=== PATIENT | female | born 1945 | race Caucasian/White ===

== ENCOUNTER 2024-09-17 10:31 | Outpatient (CLI) | payer MEDICARE, MEDICAID, SELFPAY ==
--- NOTE | ~2024-09-17 | CT_ITS ---
CT of the Abdomen and Pelvis: Indication: Abdominal pain Technique: 2.5 mm axial scans were obtained through the abdomen and pelvis following intravenous adm inistration of 100 cc of Omnipaque 350. Dose reduction technique was used on this scan by utilizing a utomated exposure control and iterative reconstruction technique. The dose-length product (DLP) was 1 374.99 mGy-cm. Findings: Scans through the lung bases demonstrate probable left basilar atelectasis or scarring. The liver, spleen, pancreas, and gallbladder are within normal limits. 9 mm nonobstructing right yady l stone present. Probable vascular calcifications in the left kidney rather than stones. 2.1 cm adren al nodule is indeterminate. 2.3 cm right adrenal nodule contains macroscopic fat, compatible with mye lolipoma. There is an additional 9 mm right adrenal nodule, which is indeterminate. There are extensi ve atherosclerotic calcifications of the aorta and iliac vessels. Infrarenal aortic aneurysm measures 5.4 cm in maximum diameter. No lymphadenopathy. There is prominent stool at the rectum and distal sigmoid colon. No bowel obstruction evident. Images through the pelvis were performed. Urinary bladder unremarkable. Status post hysterectomy. Lef t ovary is prominent overall, measuring 4.3 cm in diameter, with a 2.4 cm cyst present. No other adne xal mass. No ascites. Moderate chronic compression fracture of T10 present. There is moderate to advanced degenerative spon dylosis of the lumbar spine. Impression: 5.4 cm infrarenal abdominal aortic aneurysm. Vascular surgery consultation advised. Prominent left ovary with 2.4 cm cyst. Gynecological evaluation advised. Pelvic ultrasound should be considered for further evaluation. 9 mm nonobstructing right renal stone. 2.1 cm indeterminate left adrenal nodule. Advise follow-up MR to attempt to confirm benign adenoma. A dditional right adrenal nodules, as above. Probable fecal impaction/constipation. Reviewed, dictated and finalized at location M. Impression: 5.4 cm infrarenal abdominal aortic aneurysm. Vascular surgery consultation advi sed. Prominent left ovary with 2.4 cm cyst. Gynecological evaluation advised. Pelvic ultrasound should be considered for further evaluation. 9 mm nonobstructing right renal stone. 2.1 cm indeterminate left adrenal nodule. Advise follow-up MR to attempt to con firm benign adenoma. Additional right adrenal nodules, as above. Probable fecal impaction/constipation.
--- OUTSIDE RECORDS SUMMARY | 2024-09-17 10:35 | XMS_ITS | Clinical Summary ---
Author Organization [facility] ilks Address [address] [place] [address] Care Team Providers Care [employer] Name Role Phone Rony Whitney MD Primary Care Provider [phone] Allergies No known active allergies Medications escitalopram (LEXAPRO) 20 mg tablet Take 2 tablets (40 mg total) by mouth nightly 12/24/19 23 Active metFORMIN XR (GLUCOPHAGE XR) 500 mg 24 hr tablet Take 1 tablet (500 mg total) by mouth 2 (two) times a day 12/24/19 23 Active traZODone (DESYREL) 100 mg tablet Take 1 tablet (100 mg total) by mouth nightly 12/24/19 23 Active ibandronate (BONIVA) 150 mg tablet Take 1 tablet (150 mg total) by mouth every 30 (thirty) days Take in AM with glass of water prior to food, don't lie down for 30 minutes. Active aspirin 81 mg enteric coated tablet Take 1 tablet (81 mg total) by mouth daily Active magnesium oxide (MAG-OX) 400 mg (241.3 mg elemental magnesium) tabletIndicati ons:hypomagnes emia Take 1 tablet (400 mg total) by mouth 2 (two) times a day 20 tablet 02/04/20 23 Active potassium chloride ER 20 mEq CR tablet Take 1 tablet (20 mEq total) by mouth daily 02/24/20 23 Active acetaminophen (TYLENOL) 325 mg tablet Take 2 tablets (650 mg total) by mouth every 4 (four) hours as needed for pain Active ticagrelor (BRILINTA) 90 mg tablet Take 1 tablet (90 mg total) by mouth 2 (two) times a day 180 tablet 3 07/05/19 24 Active guaiFENesin (ROBITUSSIN) 400 mg tablet Take 1 tablet (400 mg total) by mouth Active loperamide (IMODIUM A-D) 2 mg tablet Take 1 tablet (2 mg total) by mouth 4 (four) times a day as needed for diarrhea Active LORazepam (ATIVAN) 0.5 mg tablet Take 1 tablet (0.5 mg total) by mouth every 6 (six) hours as needed for anxiety Active UNABLE TO FIND Cranberry oral 450 mg Active docusate sodium (COLACE) 100 mg capsuleIndicat ions:constipat ion Take 1 capsule (100 mg total) by mouth 2 (two) times a day Activ e sodium phosphates (FLEET) 19-7 gram/118 mL enema Insert 1 enema (118 mL total) into the rectum Active ipratropium-al buteroL (DUO-NEB) 0.5-2.5 mg/3 mL nebulizer solution Take by nebulization every 6 (six) hours Active magnesium hydroxide (MILK OF MAGNESIA) suspension 400 mg/5 mL Active polyethylene glycol (MIRALAX) 17 gram/dose bulk powder Take 17 g by mouth daily Active ondansetron (ZOFRAN) 4 mg tablet Take 1 tablet (4 mg total) by mouth every 8 (eight) hours as needed for nausea or vomiting Active UNABLE TO FIND - ENTER DRUG NAME IN NOTES TO PHARMACY Probiotic 1 unit A ctive UNABLE TO FIND Senokot 1 tablet Active metoprolol XL (TOPROL-XL) 25 mg extended release tablet Take 1 tablet (25 mg total) by mouth nightly 07/01/19 25 026 Active losartan (COZAAR) 25 mg tablet Take 1 tablet (25 mg total) by mouth daily 07/01/19 25 Active rosuvastatin (CRESTOR) 40 mg tablet Take 1 tablet (40 mg total) by mouth nightly at bedtime. 07/01/19 25 Active cranberry fruit 400 mg tablet Take by mouth Active fluconazole (DIFLUCAN) 150 mg tablet TAKE 1 TABLET BY MOUTH FOR ONE TIME DOSE (ER BOX FROM 04/10/24) 04/13/19 25 Active lidocaine (XYLOCAINE) 10 mg/mL (1 %) injection DILUTE CEFTRIAXONE W/4.2ML OF LIDOCAINE IN THE MORNING FOR 8 DOSES 07/01/19 Active mirtazapine (REMERON) 7.5 mg tablet TAKE 1 TABLET BY MOUTH AT BEDTIME FOR DEPRESSION 05/06/19 Active doxycycline hyclate 100 mg capsule GIVE 1 TABLET BY MOUTH TWO TIMES A DAY FOR INFECTION FOR 10 DAYS 05/01/19 Active cefTRIAXone (ROCEPHIN) 2 gram injection INJECT 2GM INTRAMUSCULARLY IN THE MORNING FOR 8 DOSES (DILUTE W/4.2ML OF LIDOCAINE) 07/01/19 Active Active Problems Problem Noted Date Diagnosed Date Snoring 07/19/2024 Assessment & Plan (07/19/2024 10:19 AM CDT): The patient presents with snoring and daytime hypersomnia. Per her request, I have ordered a home sleep test and she will follow up here in 4 months. Mixed hyperlipidemia 07/05/2023 Moderate aortic regurgitation 07/05/2023 CAD (coronary artery disease), [place] coronary a rtery 06/05/2023 Type 2 diabetes mellitus wit h diabetic peripheral angiopathy without gangrene, without long-term current use of insulin 05/16/2023 Assessment & Plan (05/16/2023 10:37 AM TOP PRECIPITATOR OPERATOR HELPER): Impression: Chronic with good glucose control. Plan: Continue glipizide and metformin. Primary hypertension 05/16/2023 Assessment & Plan (05/16/2023 10:38 AM TOP PRECIPITATOR OPERATOR HELPER): Impression: Chronic and stable. Plan: Continue metoprolol Hx of AKA (above knee amputation), right 023 Assessment & Plan (05/16/2023 10:37 AM TOP PRECIPITATOR OPERATOR HELPER): Impression: Right [id number] amputation site is healed. Plan: Continue recommendations as per Nick for prosthesis. -patient to follow-up in 3 months for re-evaluation. Assessment & Plan (03/18/2023 9:04 AM TOP PRECIPITATOR OPERATOR HELPER): Impression: Patient is status post right kifep-klz-btgp amputation. Surgical dehiscence occurred during patient's last office visit when janette were removed. Dehiscence sites are nearly healed. Patient continues to have edema to the residual right lower extremity. Per patient's daughter, facility where the patient resides in has not been utilizing compression therapy. The patient has an adequate residual limb that would be appropriate for a level K3 prosthesis. They're currently undergoing prosthesis evaluation and fitting for a right jawic-pfs-laud prothesis. Patient has no complaints or concerns at this time. I have examined the patient and recommend a right qvnnm-axj-ejqp prosthetic. The patient was a level K3 ambulator prior to his amputation. 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 Patient is very motivated to return to normal functioning once prosthesis is obtained and is capable walking on uneven surfaces and able to traverse multiple level barriers including stairs, curbs and hills. The patient currently has adequate upper extremity limb strength and ability to transfer from there chair to a bed, couch or toilet. The patient does not have any other comorbidities that would hinder their ability to return to full function within a reasonable amount of time. Plan: Recommend triple antibiotic ointment and Band-Aid to nearly healed ulceration sites. -continue working with Vocal Performer for prosthetic evaluation. -recommend compression therapy to right udbue-ctg-lfwt amputation site for edema control. -patient to follow-up in 3 months for re-evaluation. Assessment & Plan (02/11/2023 11:06 AM TOP PRECIPITATOR OPERATOR HELPER): Impression: Patient is status post right obwga-pcs-czyb amputation. Postsurgical edema is noted to residual right lower extremity. Surgical incision is well approximated, healing with janette intact. No concern for infection. Plan: [place] removed. Medical assistance brought it to my attention of continued bleeding the center of amputation site when janette were removed. Hematoma was expressed from open surgical wound. Patient was seen and evaluated with Dr. Mcqueen. Applied steri strips to the incision of the amputation. - Recommend daily dressing change with island dressing. - Recommend if bleeding continues, apply pressure dressing to open site for hemostasis. -recommend Tubigrip to the right amputation site to assist with edema. - patient to follow-up in 1 week for re-evaluation. BJORN (acute kidney injury) 01/28/2023 Elevated LFTs 01/27/2023 Gangrene 01/26/2023 Shock 01/26/2023 Acute respiratory failure with hypoxia COPD exacerbation 01/21/2023 Peripheral vascular disease 01/21/2023 Assessment & Plan (05/16/2023 10:36 AM TOP PRECIPITATOR OPERATOR HELPER): Impression: Patient denies any symptoms of claudication, ischemic rest pain to her left lower extremity. Patient does have a superficial ulceration to the lateral aspect of dorsal left foot with no concern for infection. Plan: Continue daily dressing changes with triple antibiotic ointment and Band- Aid to superficial ulceration. -patient to follow-up in 3 months for re-evaluation with repeat lower extremity arterial Doppler. Sepsis 01/21/2023 Cardiac arrest 01/07/2023 Acute coronary syndrome 01/07/2023 Assessment & Plan (07/05/2023 2:58 AM CDT): Vfib arrest in setting of septic shock and distal RCA Acute coronary syndrome/Stemi Penetrating wound of right foot 01/07/2023 Encounters Date Type Department Care Team Description 09/16/2024 Telephone [facility] [address], [place] [id number] [place] Nena Forman [facility] 09/16/2024 Orders Only [facility] Medical [facility] Pulmonary [address] [phone] Flo Carrasco MD ANITA (obstructive sleep apnea) (Primary Dx) 09/15/2024 12:52 PM CDT - 09/15/2024 11:59 PM CDT Hospital Encounter [facility] [address], [place] [id number] Snoring; Hypersomnia, unspecified Discharge Disposition: Discharge to home or self care 07/19/2024 10:30 AM CDT Office Visit [facility] Pulmonary [address] [phone] Flo Carrasco MD Snoring (Primary Dx); ANITA (obstructive sleep apnea); Hypersomnia, unspecified 07/01/2024 Results Follow-Up [facility] Cardiology [address] [place] [phone] Carola Gómez MA Lipid panel, Thyroid Function [place], Pro B-type natriuretic peptide, Additional followed-up results: 6 06/30/2024 10:50 AM CDT Lab [facility] [address] [place] [id number] Coronary artery disease of [place] artery of [place] heart with stable angina pectoris; Primary hypertension; Type 2 diabetes mellitus with diabetic peripheral angiopathy without gangrene, without long-term current use of insulin (HCC); BJORN (acute kidney injury); Hx of AKA (above knee amputation), right (HCC) 06/30/2024 9:45 AM CDT Office Visit [facility] Cardiology [address] [place] [phone] Jitendra Corral MD Coronary artery disease of [place] artery of [place] heart with stable angina pectoris (Primary Dx); Primary hypertension; Type 2 diabetes mellitus with diabetic peripheral angiopathy without gangrene, without long-term current use of insulin (HCC); BJORN (acute kidney injury); Hx of AKA (above knee amputation), right (HCC) 06/30/2024 Orders Only [facility] Cardiology [address] [place] [phone] Jitendra Corral MD Type 2 diabetes mellitus with diabetic peripheral angiopathy without gangrene, without long-term current use of insulin (HCC) (Primary Dx) 06/30/2024 Telephone [facility] Cardiology [address] [place] [phone] Jitendra Corral MD from Last 3 Months Surgical History Surgery Date Site/Laterality Comments CARDIAC CATHETERIZATION APPENDECTOMY HYSTERECTOMY PERCUTANEOUS TRANSLUMINAL CORONARY ANGIOPLASTY lad Medical History Medical History Date Comments Diabetes mellitus (HCC) Coronary artery disease PAD (peripheral artery disease) CKD (chronic kidney disease) Family History Medical History Relation Name Comments Heart disease Brother Relation Name Status Comments Brother Father Mother Social History Tobacco Use Types Packs/Day Years Used Date Smoking Tobacco: Former Cigarettes 3 40 Smokeless Tobacco: Never Tobacco Cessation:Counseling Given: Not Answered [facility] Utilities Answer Date Recorded In the past 12 months has th e electric, gas, oil, or water company threatened to shut off services in your home? No 01/08/2023 Social Connection and Isolation Panel [NHANES] A nswer Date Recorded Frequency of Communication with Friends and Fami ly Not on file 01/08/2023 Frequency of Social Gatherings with Friends and Family Not on file 01/08/2023 Attends Bahai Services Not on file 01/08 Active Member of Clubs or Organizations Not on f ile 01/08/2023 Attends Club or Organization Meetings Not on sundar e 01/08/2023 Are you , , di vorced, , never , or living with a partner? 01/08/2023 AUDIT-C Answer Date Recorded Q1: How often do you have a drink containing alcohol? Never 06/05/2023 Q2: How many drinks containi ng alcohol do you have on a typical day when you are drinking? Patient does not drink Q3: How often do you have si x or more drinks on one occasion? Never 06/05/2023 Overall Financial Resource Strain (CARDIA) Answe r Date Recorded How hard is it for you to pa y for the very basics like food, housing, medical care, and heating? Not hard at all 01/08/2023 Hunger Vital Sign Answer Date Recorded Within the past 12 months, y ou worried that your food would run out before you got the money to buy more. Never true 01/09/20 23 Within the past 12 months, t he food you bought just didn't last and you didn't have money to get more. Never true 01/08/2023 PRAPARE - Transportation Answer Date Re corded In the past 12 months, has l ack of transportation kept you from medical appointments or from getting medications? No 03/2022 In the past 12 months, has l ack of transportation kept you from meetings, work, or from getting things needed for daily living? No 01/08/2023 Housing Stability Vital Sign Answer Zachary e Recorded In the last 12 months, was t here a time when you were not able to pay the mortgage or rent on time? No 01/08/2023 In the last 12 months, how many places have you lived? 1 01/08/2023 In the last 12 months, was t here a time when you did not have a steady place to sleep or slept in a halfway (including now)? No 01/08/2023 Personal Safety Answer Date Recorded Have you ever been in or are you currently in a harmful physical or emotional relationship or is someone making you feel afraid or unsafe? Denies 06/05/2023 Comments No Sex and Gender Information Value Date Recorded Sex Assigned at Not on file Legal Sex Female 5:39 PM TOP PRECIPITATOR OPERATOR HELPER Gender Identity Female 01/16/2023 6:07 AM TOP PRECIPITATOR OPERATOR HELPER Sexual Orientation Not on file Obstetrics History Last Filed Vital Signs Vital Sign Reading Time Taken Comments Blood Pressure 118/76 07/19/2024 9:49 AM CDT Pulse 85 07/19/2024 9:49 AM CDT Temperature 37.1 C (98.7 F) 07/19/2024 9:49 AM CDT Respiratory Rate 18 07/19/2024 9:49 AM CDT Oxygen Saturation 98% 07/19/2024 9:49 AM CDT Inhaled Oxygen Concentration - - Weight 106.6 kg (235 lb) 06/30/2024 10:05 AM CDT Height 177.8 cm (5' 10) 07/19/2024 9:49 AM CDT Body Mass Index 33.72 06/20/2023 12:53 PM CDT Plan of Treatment Health Maintenance Due Date Last Done Comments Albumin Creatinine Ratio, Urine 1947 Depression Screening 1945 Osteoporosis Screening-Bone Density Scan 1945 Dilated Eye Exam 1947 Foot Exam 1947 DTaP/Tdap/Td Vaccine (1 - Tdap) 1958 Hepatitis B Screening 1965 Pneumococcal vaccine 65+ (1 of 2 - PCV) 1966 Zoster Vaccine (1 of 2) 1997 Well Visit 65+ 2012 Fall Risk Assessment 06/05/2024 06/06/2023 Influenza Vaccine (#1) 2024 12/29/2023 Hemoglobin A1C 12/30/2024 06/30/2024, 01/26/2023 Lipid Panel 06/30/2025 06/30/2024, 03/0 07/2024, 06/02/2023, Additional history exists eGFR 06/30/2025 06/30/2024, 03/2 11/2023, 06/05/2023, Additional history exists Hepatitis C Screening Completed 01/13/2023 Medical Devices Implanted Type Area Development Vice President Device Identifier Shelf Expiration Date Model / Serial / Lot Medtronic Card Vasc Surgery 2.50 X 22mm [place] [employer] Coronary Stent [id number] - [id number] Implanted:Qty: 1 on 01/07/2023 by Jitendra Corral MD at [facility] Med[employer]onic Card Vasc Surgery 08/15/2025 [id number] / / [id number] Medtronic [facility] Vasc Surgery 2.75 X 18mm [employer] Rx Coronary Stent [id number] - [id number] Implanted:Qty: 1 on 06/05/2023 by Jitendra Corral MD at [facility] Med[employer]onic Card Vasc Surgery 12/31/2025 [id number] / / [id number] Medtronic [facility] Vasc Surgery 3.5 X 15mm Amrik [employer] Rx Coronary Stent [id number] - [id number] Implanted:Qty: 1 on 06/05/2023 by Jitendra Corral MD at [facility] [employer] [facility] Vasc Surgery 04/30/2025 [id number] / / [id number] Procedures Procedure Name Priority Date/Time Associated Diagnosis Comments PORTABLE/HOME SLEEP STUDY Routine 09/15/2024 12:52 PM CDT Snoring Hypersomnia, unspecified HEMOGLOBIN A1C Routine 06/30/2024 11:03 AM CDT Coronary artery disease of [place] artery of [place] heart with stable angina pectoris Primary hypertension Type 2 diabetes mellitus with diabetic peripheral angiopathy without gangrene, without long-term current use of insulin (HCC) BJORN (acute kidney injury) Hx of AKA (above knee amputation), right (HCC) EGFR Routine 06/30/2024 11:03 AM CDT Coronary artery disease of [place] artery of [place] heart with stable angina pectoris Primary hypertension Type 2 diabetes mellitus with diabetic peripheral angiopathy without gangrene, without long-term current use of insulin (HCC) BJORN (acute kidney injury) Hx of AKA (above knee amputation), right (HCC) DIFFERENTIAL AUTO Routine 06/30/2024 11: 03 AM CDT Coronary artery disease of [place] artery of [place] heart with stable angina pectoris Primary hypertension Type 2 diabetes mellitus with diabetic peripheral angiopathy without gangrene, without long-term current use of insulin (HCC) BJORN (acute kidney injury) Hx of AKA (above knee amputation), right (HCC) COMPREHENSIVE METABOLIC PANEL Routine 06/30/2024 11:03 AM CDT Coronary artery disease of [place] artery of [place] heart with stable angina pectoris Primary hypertension Type 2 diabetes mellitus with diabetic peripheral angiopathy without gangrene, without long-term current use of insulin (HCC) BJORN (acute kidney injury) Hx of AKA (above knee amputation), right (HCC) CBC WITH AUTO DIFFERENTIAL Routine 06/30/2024 11:03 AM CDT Coronary artery disease of [place] artery of [place] heart with stable angina pectoris Primary hypertension Type 2 diabetes mellitus with diabetic peripheral angiopathy without gangrene, without long-term current use of insulin (HCC) BJORN (acute kidney injury) Hx of AKA (above knee amputation), right (HCC) MAGNESIUM Routine 06/30/2024 11:03 AM CDT Coronary artery disease of [place] artery of [place] heart with stable angina pectoris Primary hypertension Type 2 diabetes mellitus with diabetic peripheral angiopathy without gangrene, without long-term current use of insulin (HCC) BJORN (acute kidney injury) Hx of AKA (above knee amputation), right (HCC) PRO B-TYPE NATRIURETIC PEPTIDE Routine 06/30/2024 11:03 AM CDT Coronary artery disease of [place] artery of [place] heart with stable angina pectoris Primary hypertension Type 2 diabetes mellitus with diabetic peripheral angiopathy without gangrene, without long-term current use of insulin (HCC) BJORN (acute kidney injury) Hx of AKA (above knee amputation), right (HCC) THYROID FUNCTION CASCADE Routine 06/30/2024 11:03 AM CDT Coronary artery disease of [place] artery of [place] heart with stable angina pectoris Primary hypertension Type 2 diabetes mellitus with diabetic peripheral angiopathy without gangrene, without long-term current use of insulin (HCC) BJORN (acute kidney injury) Hx of AKA (above knee amputation), right (HCC) LIPID PANEL Routine 06/30/2024 11:03 AM CDT Coronary artery disease of [place] artery of [place] heart with stable angina pectoris Primary hypertension Type 2 diabetes mellitus with diabetic peripheral angiopathy without gangrene, without long-term current use of insulin (HCC) BJORN (acute kidney injury) Hx of AKA (above knee amputation), right (HCC) ECG 12-LEAD Routine 06/30/2024 10:08 AM CDT Coronary artery disease of [place] artery of [place] heart with stable angina pectoris HEPATITIS PANEL, ACUTE Routine 4:28 PM TOP PRECIPITATOR OPERATOR HELPER from Last 3 Months or Most Recently Relevant to Health Maintenance Results * Portable/Home Sleep Study (09/15/2024 12:52 PM CDT) us Flo Carrasco MD SLEEP CENTER ORDERABLES F inal Result [facility]EP [facility] [address] [place] [id number] * eGFR (06/30/2024 11:03 AM CDT) eGFR 76 >=60 mL/min/1. 73 m2 Comment: Interpretive Data Reference Interval Normal >/= 90 mL/min/1.73m2 Mildly decreased* 60 - 89 mL/min/1.73m2 Mildly to moderately decreased 45 - 59 mL/min/1.73m2 Moderately to severely decreased 30 - 44 mL/min/1.73m2 Severely decreased 15 - 29 mL/min/1.73m2 Kidney Failure < 15 mL/min/1.73m2 *Relative to young adult level Estimated glomerular filtration rate is determined by the 2020 CKD-EPI equation recommended by the National Kidney Foundation (A Unifying Approach to GFR Estimation: Recommendations of the NKF-ASK Task Force on Reassessing the Inclusion of Race in Diagnosing Kidney Disease, JASN 202). The CKD-EPI equation should not be used for patients with unstable renal function and has not been validated in children and those over 70. Current interpretive data was last reviewed 2021. Testing performed by: [address] [address] Blood 06/30/2024 11:0 3 AM CDT 06/30/2024 11:08 AM CDT us Jitendra Corral MD LAB BLOOD ORDERABL ES Final Result [place] [address] [facility] Department [place] [address] * Differential, auto (06/30/2024 11:03 AM CDT) Neutrophil abs 4.84 1.50 - 6.50 K/cumm Comment:Testing performed by : [address] [address] Imm gran abs 0.01 0.00 - 0.10 K/cumm DAMIAN Comment:Testing performed by : [address] [address] Lymphocyte abs 1.69 0.80 - 3.30 K/cumm DAMIAN Comment:Testing performed by : [address] [address] Monocyte abs 0.64 0.20 - 0.80 K/cumm DAMIAN Comment:Testing performed by : [address] [address] Eosinophil abs 0.24 0.00 - 0.50 K/cumm DAMIAN Comment:Testing performed by : [address] [place]., [address] Basophil abs 0.10 0.00 - 0.10 K/cumm DAMIAN Comment:Testing performed by : [address] [address] Neutrophil pct 64.4 % [facility] Comment: Interpretive Data Percent cell count reference ranges are not reported, since discordance with absolute values may lead to misinterpretation of CBC data. Current Interpretive Data was last revised on 2017. Testing performed by: [address] [address] Imm gran pct 0.1 % [facility] Comment: Interpretive Data Percent cell count reference ranges are not reported, since discordance with absolute values may lead to misinterpretation of CBC data. Current Interpretive Data was last revised on 2017. Testing performed by: [address] [address] Lymphocyte pct 22.5 % [facility] Comment: Interpretive Data Percent cell count reference ranges are not reported, since discordance with absolute values may lead to misinterpretation of CBC data. Current Interpretive Data was last revised on 2017. Testing performed by: [address] [address] Monocyte pct 8.5 % [facility] Comment: Interpretive Data Percent cell count reference ranges are not reported, since discordance with absolute values may lead to misinterpretation of CBC data. Current Interpretive Data was last revised on 2017. Testing performed by: [address] [address] Eosinophil pct 3.2 % [facility] Comment: Interpretive Data Percent cell count reference ranges are not reported, since discordance with absolute values may lead to misinterpretation of CBC data. Current Interpretive Data was last revised on 2017. Testing performed by: [address] [address] Basophil pct 1.3 % [facility] Comment: Interpretive Data Percent cell count reference ranges are not reported, since discordance with absolute values may lead to misinterpretation of CBC data. Current Interpretive Data was last revised on 2017. Testing performed by: [address] [address] Blood 06/30/2024 11:0 3 AM CDT 06/30/2024 11:09 AM CDT us Jitendra Corral MD LAB BLOOD ORDERABL ES Final Result [place] [address] [facility] Department [place] [address] * Pro B-type natriuretic peptide (06/30/2024 11:03 AM CDT) NT-proBNP 130 <=450 pg/mL Comment: Interpretive Comments: A. Dyspnea in Acute Care Setting All Ages: < 300 pg/ml, acute heart failure unlikely. < 50 yrs: 300 - 450 pg/ml, further investigation warranted. > 450 pg/ml, acute heart failure likely. 50 - 74 yrs: 300 - 900 pg/ml, further investigation warranted. > 900 pg/ml, acute heart failure likely . > or = 75 yrs: 450 - 1800 pg/ml, further investigation warranted. > 1800 pg/ml, acute heart failure likely. B. Non-acute Setting < 75 yrs < 125 pg/ml, rules out heart failure. > or = 125 pg/ml, further investigation warranted. > or = 75 yrs < 450 pg/ml, rules out heart failure. > or = 450 pg/ml, further investigation warranted. - Knowledge of each individual patient's NT-proBNP range may be more useful than using similar cut-points for every patient. Please note that marked elevations in NT-proBNP levels may be observed in state other than Left Ventricular Congestive Failure, including: acute coronary syndromes, right heart strain/failure (including pulmonary embolism and cor pulmonale), critical illness, renal failure, as well as advanced age. - References: 1. Henrietta GAMING et.al. Eur Heart J. 2006:27:330-337. 2. Dg SEQUEIRA, Tiffany GARVIN. J. AM Lino Cardiol: Cardiovasc Imag. 2009;2: 216- 225. Interpretive Data Last Revised Date: 2017. Testing performed by: [facility], [address] [place] [address]., [id number] Blood 06/30/2024 11:0 3 AM CDT 06/30/2024 11:08 AM CDT us Jitendra Corral MD LAB BLOOD ORDERABL ES Final Result Performing Organization Address [facility] de Phone Number [address] [address] * Thyroid Function [place] (06/30/2024 11:03 AM CDT) TSH 1.03 0.30 - 4.20 mcIUnit/mL Comment:Testing performed by : [address] [address] Blood 06/30/2024 11:0 3 AM CDT 06/30/2024 11:08 AM CDT us Jitendra Corral MD LAB BLOOD ORDERABL ES Final Result Performing Organization Address [facility] de Phone Number [address] [address] * (ABNORMAL) CBC with auto differential (06/30/2024 11:03 AM CDT) Pathologist [facility] [place] WBC 7.52 3.80 - 9.90 K/cumm Comment:Testing performed by : [address] [address] Hgb 12.5 11.9 - 15.5 g/dL DAMIAN MCKEON Comment:Testing performed by : [address] [address] Hct 41.9 35.6 - 45.5 % DAMIAN MCKEON Comment:Testing performed by : [address] [address] Plt 279 150 - 400 K/cumm DAMIAN MCKEON Comment:Testing performed by : [address] [address] MPV 10.3 9.1 - 12.3 fL DAMIAN MCKEON Comment:Testing performed by : [address] [address] RBC 4.62 3.90 - 5.20 M/cumm DAMIAN Comment:Testing performed by : [address] [address] MCV 90.7 81.3 - 96.4 fL DAMIAN Comment:Testing performed by : [address] [address] MCH 27.1 27.1 - 33.3 pg DAMIAN Comment:Testing performed by : [address] [address] MCHC 29.8(L) 32.3 - 35.7 g/dL DAMIAN Comment:Testing performed by : [address], [address] RDW CV 15.3(H) 11.1 - 14.9 % DAMIAN Comment:Testing performed by : [address], [address] RDW SD 50.4(H) 35.7 - 48.1 fL DAMIAN Comment:Testing performed by : [address] [address] NRBC abs 0.00 0.00 - 0.01 K/cumm DAMIAN Comment:Testing performed by : [address] [address] Blood 06/30/2024 11:0 3 AM CDT 06/30/2024 11:09 AM CDT Jitendra Corral MD LAB BLOOD ORDERABL ES Final Result [facility] [address] [facility] Department [place] [address] * Magnesium (06/30/2024 11:03 AM CDT) Magnesium 2.1 1.4 - 2.5 mg/dL Comment:Testing performed by : [address], [address] Blood 06/30/2024 11:0 3 AM CDT 06/30/2024 11:08 AM CDT Jitendra Corral MD LAB BLOOD ORDERABL ES Final Result Performing Organization Address [facility] Co de Phone Number DAMIAN [address] [address] * (ABNORMAL) Hemoglobin A1c (06/30/2024 11:03 AM CDT) Hgb A1C 8.5(H) 4.0 - 5.6 % Comment:Testing performed by : [address] [address] Estimated Average Glucose 197 mg/dL DAMIAN Comment: The ADA recommends reporting an estimated Average Glucose (eAG) with all Hemoglobin A1c results using the equation derived from a study of 507 normal and diabetic adults. Minority populations were underrepresented and children were not included. (Diabetes Care 31:6945-7330, 2008). The eAG is not equivalent to a fasting glucose. Testing performed by: [facility], [address] [place] [address]., [address] Blood 06/30/2024 11:0 3 AM CDT 06/30/2024 11:09 AM CDT Jitendra Corral MD LAB BLOOD ORDERABL ES Final Result Performing Organization Address [facility] de Phone Number [address] [address] * (ABNORMAL) Lipid panel (06/30/2024 11:03 AM CDT) Cholesterol 147 30 - 199 mg/dL Comment: Interpretive Data Ages < or = 19 years Acceptable: <170 mg/dL Borderline high: 170-199 mg/dL High: >or= 200 mg/dL Ages > or = 20 years Desirable: <200 mg/dL Borderline high: 200-239 mg/dL High: >or= 240 mg/dL Literature References: 1. Expert Panel on Integrated Guidelines for Cardiovascular Health and Risk Reduction in Children and Adolescents. Pediatrics 2011;128:S213 2. NCEP Expert Panel. Circulation 2004;110:227 Current Interpretive Data was last revised on 2017. Testing performed by: [address] [address] Triglycerides 152(H) <=149 mg/dL DAMIAN Comment: Interpretive Data Ages < or = 9 years Acceptable: <75 mg/dL Borderline high: 75-99 mg/dL High: >or= 100 mg/dL Ages 10 to 20 years Acceptable: <90 mg/dL Borderline high: 90-129 mg/dL High: >or= 130 mg/dL Ages > or = 20 years Desirable: <150 mg/dL Borderline high: 150-199 mg/dL High: 200-499 mg/dL Very high: >or= 499 mg/dL Literature References: 1. Expert Panel on Integrated Guidelines for Cardiovascular Health and Risk Reduction in Children and Adolescents. Pediatrics 2011;128:S213 2. NCEP Expert Panel. Circulation 2004;110:227 Current Interpretive Data was last revised on 2017. Testing performed by: [address] [address] HDL 50 >=40 mg/dL DAMIAN Comment: Interpretive Data Ages < or = 19 years Acceptable: >45 mg/dL Borderline low: 40-45 mg/dL Low: <40 mg/dL Ages > or = 20 years Desirable: >or= 60 mg/dL Low: <40 mg/dL Literature References: 1. Expert Panel on Integrated Guidelines for Cardiovascular Health and Risk Reduction in Children and Adolescents. Pediatrics 2011;128:S213 2. NCEP Expert Panel. Circulation 2004;110:227 Current Interpretive Data was last revised on 2017. Testing performed by: [address] [address] LDL, calculated 71 <=129 mg/dL DAMIAN Comment: Interpretive Data Ages < or = 19 years Acceptable: <110 mg/dL Borderline high: 110-129 mg/dL High: >or= 130 mg/dL Ages > or = 20 years Optimal: <100 mg/dL Near optimal: 100-129 mg/dL Borderline high: 130-159 mg/dL High: >160 mg/dL Calculated using the Morton LDL-C estimating equation. This equation was implemented on 2023. Prior to this date LDL-C was estimated using the Friedewald equation. Literature References: 1. Expert Panel on Integrated Guidelines for Cardiovascular Health and Risk Reduction in Children and Adolescents. Pediatrics 2011;128:S213 2. NCEP Expert Panel. Circulation 2004;110:227 3. Praveen Eng et al. [place] Cardiol. 2020 July 08;5(5):540-548. doi: 10.1001/jamacardio.2020.0013 Current Interpretive Data was last revised on 2023. Testing performed by: [address] [address] Non-HDL Cholesterol 97 mg/dL DAMIAN Comment: Interpretive Data Ages < or = 19 years Acceptable: <120 mg/dL Borderline high: 120-144 mg/dL High: >145 mg/dL Ages > or = 20 years When triglycerides are >200 mg/dL, Non-HDL cholesterol is a secondary target of therapy with treatment goals that are 30 mg/dL greater than the LDL cholesterol target. Literature References: 1. Expert Panel on Integrated Guidelines for Cardiovascular Health and Risk Reduction in Children and Adolescents. Pediatrics 2011;128:S213 2. NCEP Expert Panel. Circulation 2004;110:227 Current Interpretive Data was last revised on 2017. Testing performed by: [address] [address] Chol/HDL ratio 3 DAMIAN Comment:Testing performed by : [address] [address] Blood 06/30/2024 11:0 3 AM CDT 06/30/2024 11:08 AM CDT Narrative DAMIAN - 06/30/2024 11:44 AM CDT Has the patient been fasting for 8 hours or more?->No Has the patient fasted?->No us Jitendra Corral MD LAB BLOOD ORDERABL ES Final Result DAMIAN [address] [facility] Department [place] [address] * (ABNORMAL) Comprehensive metabolic panel (06/30/2024 11:03 AM CDT) Sodium 139 135 - 145 mmol/L Comment:Testing performed by : [address] [address] Potassium, pl 4.5 3.3 - 4.9 mmol/L DAMIAN Comment:Testing performed by : [address], [place]., [address] Chloride 101 97 - 110 mmol/L DAMIAN Comment:Testing performed by : [address], [place]., [address] CO2 26 22 - 32 mmol/L DAMIAN Comment:Testing performed by : [address], [place]., [address] Anion gap 12 2 - 15 mmol/L DAMIAN Comment:Testing performed by : [address], [place]., [address] BUN 18 6 - 25 mg/dL DAMIAN Comment:Testing performed by : [address], [place]., [address] Creatinine 0.80 0.60 - 1.10 mg/dL DAMIAN Comment:Testing performed by : [address], [place]., [address] Glucose 206(H) 70 - 199 mg/dL DAMIAN Comment: Interpretive Data Fasting glucose >/= 126 mg/dl is diagnostic for diabetes. Fasting is defined as no caloric intake for at least 8 hours. Fasting glucose between 100 mg/dl to 125 mg/dl is diagnostic of prediabetes. In a patient with classic symptoms of hyperglycemia or hyperglycemic crisis, a random glucose >/= 200 mg/dl is diagnostic for diabetes. In the absence of unequivocal hyperglycemia, results should be confirmed by repeat testing. The classification and Diagnosis of Diabetes Diabetes Care 202; 46: S19-S40. Current interpretive data was last revised 2022. Testing performed by: [address], [place]., [address] Calcium 9.3 8.5 - 10.3 mg/dL DAMIAN Comment:Testing performed by : [address], [place]., [address] Bilirubin, total 0.2 0.1 - 1.2 mg/dL DAMIAN Comment:Testing performed by : [address] [address] Protein, pl 7.9 6.5 - 8.5 g/dL DAMIAN Comment:Testing performed by : [address] [address] Albumin 4.0 3.5 - 5.0 g/dL DAMIAN Comment:Testing performed by : [address] [address] Alk phos 105 40 - 130 Units/L DAMIAN Comment:Testing performed by : [address], [place]., [address] ALT 15 7 - 45 Units/L DAMIAN Comment:Testing performed by : [address] [address] AST 16 10 - 45 Units/L DAMIAN Comment:Testing performed by : [address] [address] Blood 06/30/2024 11:0 3 AM CDT 06/30/2024 11:08 AM CDT Narrative DAMIAN - 06/30/2024 11:44 AM CDT Has the patient fasted?->No Jitendra Corral MD LAB BLOOD ORDERABL ES Final Result DAMIAN [facility] Department of Laboratories [place], [place] [id number] * ECG 12 lead (06/30/2024 10:08 AM CDT) Jitendra Corral MD ECG ORDERABLES Fi nal Result * Hepatitis panel, acute Blood (01/13/2023 4:28 PM 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 Current interpretive data was last revised on 19. Hep B core IgM Nonreactive Nonreactive DAMIAN Comment: Interpretive Data If HepB Core IgM Ab is reported as Equivocal, a new sample should be drawn in two weeks for testing. Current interpretive data was last revised on 19. Hep C Ab Nonreactive Nonreactive DAMIAN Comment: Interpretive Data Nonreactive: Antibodies to HCV not detected. Does NOT exclude the possibility of recent exposure to HCV. Equivocal: Equivocal for HCV antibodies. Supplemental molecular testing will be automatically performed to determine infection status in accordance with current CDC screening recommendations. Reactive: Positive for HCV antibodies. This may represent current or past HCV infection. Supplemental molecular testing will be automatically performed to determine current infection status in accordance with current CDC screening recommendations. Interpretive data was last revised on 2019. HepBsAg Nonreactive Nonreactive DAMIAN Blood 01/13/2023 4:28 PM TOP PRECIPITATOR OPERATOR HELPER 01/13/2023 4:31 PM TOP PRECIPITATOR OPERATOR HELPER Amrit Mccollum MD LAB MICROBIOLOGY - GENERAL ORDERABLES Final Result [facility] [address] [facility] Department [place] [address] from Last 3 Months or Most Recently Relevant to Health Maintenance Insurance MEDICARE [facility] MEDICARE [facility] Address: [address] [address] [place] [address] MEDICARE [facility] Advance Directives For more information, please contact: [phone] * Full Code (Latest Code Status on File) Date Activated Date Inactivated Comments 06/05/2023 12:54 PM 06/06/2023 3:41 PM * LIMITED - No CPR Date Activated Date Inactivated Comments 01/10/2023 1:05 PM 02/03/2023 10:35 PM Question Answer Comments Provide aggressive medical m anagement before a full cardiopulmonary arrest occurs. Use antibiotics, IV Fluids, and medical treatment unless specifically selected below: No intubation * Full Code Date Activated Date Inactivated Comments 01/07/2023 11:45 PM 01/10/2023 1:05 PM Care Teams [employer] Relationship Specialty Start Date End Date Raben, Rony L., MD [address] [address] PCP - General Family Medicine 01/07/23
--- OUTSIDE RECORDS SUMMARY | 2024-09-17 10:35 | XMS_ITS | Patient Health Record ---
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 Name Role Phone BRYAN WILSON Primary Care Provider Rose Richey Unavailable [phone] Georgia Shearer Unavailable [phone] Jessica Bryson Unavailable [phone] Allergies Allergen (clinical drug ingredient) Drug/Non Drug Allergy documented on EMR Reaction Allergy Type Onset Date Status No Known Drug Allergy Unknown Drug Allergy Active Results Component Value Reference Range Notes Lipid Panel Reviewed date:05/12/2024 03:12:34 PM Interpretation: Performing Lab: Notes/Report: Urine Culture and Sensitivit y Reviewed date:08/18/2024 09:47:23 AM Interpretation: Performing Lab: Notes/Report: X ray : Abdomen, Kidneys, Ur eters, and Bladder (KUB) Reviewed date:06/23/2024 08:30:32 AM Interpretation: Performing Lab: Notes/Report: Urine Culture and Sensitivit y Reviewed date:08/11/2024 10:54:15 AM Interpretation: Performing Lab: Notes/Report: Urine Culture and Sensitivit y Reviewed date:06/25/2024 08:34:05 AM Interpretation: Performing Lab: Notes/Report: Basic Metabolic Panel (8) Reviewed date:05/10/2024 12:02:57 PM Interpretation: Performing Lab: Notes/Report: CBC With Differential/Platel et Reviewed date:05/10/2024 12:02:33 PM Interpretation: Performing Lab: Notes/Report: Clostridium difficile Cultur e Reviewed date:07/04/2024 06:24:41 PM Interpretation: Performing Lab: Notes/Report: Lipase, Serum Reviewed date:07/02/2024 12:35:18 PM Interpretation: Performing Lab: Notes/Report: Amylase, Serum Reviewed date:07/02/2024 12:32:38 PM Interpretation: Performing Lab: Notes/Report: Reason For Referral Reason Loose stools for a m onth Stomach Pain Nausea Diagnosis 1 Diarrhea, unspecifie d (R19.7) Diagnosis 2 Stomach pain (R10.9) Diagnosis 3 Nausea (R11.0) Referral Organization [facility] Referring Provider First Name BRYAN Referring Provider Last Name STEVE Referring Provider Speciality Internal M edicine Referred Organization [facility] Referred Address [address] [place], [place],[address], Referred Provider Specialty Gastroentero logy General Notes Leslye Sanchez 04/2024 02:53:40 PM CDT >Nicki at [facility] stated she is waiting on a call back from specialty office to schedule appt. Is going to resent referral., Leslye Sanchez 08/23/2024 11:06:13 AM CDT >Patient is scheduled this week for appointment Referral Priority Routine Medications Medication SIG (Take, Route, Frequency, Duration) Notes Start Date End Date Status ZyrTEC Allergy 10 MG Tablet 1 tablet as needed Orally Once a day Active Acetaminophen 325 MG Tablet 2 tablet as needed Orally every 4 hrs Active Ticagrelor 90 MG Tablet 1 tablet Orally Twice a day Active traZODone HCl 100 MG Tablet 1 tablet at bedtime Orally Once a day Active Saccharomyces boulardii 250 MG Capsule 1 capsule Orally twice a day Active Senna 8.6 MG Tablet 1 tablet at bedtime as needed Orally Once a day Active Potassium Chloride ER 20 MEQ Tablet Extended Release 1 tablet with food Orally Once a day Active Rosuvastatin Calcium 40 MG Tablet 1 tablet Orally Once a day Active Macrobid 100 MG Capsule 1 capsule with f ood Orally every 12 hrs Active MiraLax 17 GM/SCOOP Powder 1 scoop mixed with 8 ounces of fluid as needed Orally Once a day Active Ondansetron HCl 4 MG Tablet 1 tablet as needed Orally every 6 hours Active Ipratropium-Albuterol 0.5-2.5 (3) MG/3ML Solution 3 mL as needed Inhalation every 4 hrs Active Losartan Potassium 25 MG Tablet 0.5 tablet Orally Once a day Active Milk of Magnesia 7.75 % Suspension 30 mL as needed Orally Once a day Active Imodium A-D 2 MG Tablet 2 tablet as need ed Orally every 12 hours Active metFORMIN HCl 500 MG Tablet 1 tablet wit h a meal Orally twice daily Active Metoprolol Succinate ER 25 MG Tablet Extended Release 24 Hour 0.5 tablet Orally Once a day Active guaiFENesin 400 MG Tablet 1 tablet as ne eded Orally every 12 hours Active Ibandronate Sodium 150 MG Tablet 1 tablet 60 minutes before the first food, beverage or medicine of the day with plain water Orally Active Magnesium 400 MG Capsule 1 tablet Orally twice daily Active Escitalopram Oxalate 20 MG Tablet 1 tablet Orally Once a day Active Fleet Enema - Enema as directed as neede d Rectal Active Dulcolax 10 MG Suppository 1 suppository as needed Rectal Once a day Active Docusate Sodium 100 MG Capsule 1 capsule as needed Orally Once a day Active Ativan 0.5 MG Tablet 1 tablet Orally 3 t imes a day Active Cranberry 450 MG Capsule 1 tablet Orally twice daily Active Aspirin Adult Low Dose 81 MG Tablet Delayed Release 1 tablet Orally Once a day Active Social History Tobacco Use: Social History Observation Description Date Details (start date - stop date) Former Smoker NA - NA Social History Drug/Alcohol: Social Info Question Answer Notes Drugs Have you used drugs other than those for medical reasons in the past 12 months? No AUDIT-C (Standard) Did you have a drink containing alcohol in the past year? No Points 0 Interpretation Negative Tobacco Use: Social Info Question Answer Notes Tobacco Control (Standard) Tobacco use: Former smoker Problems Problem Type SNOMED Code ICD Code Onset Dates Problem Status W/U Status Risk Notes Problem Mixed hyperlipidemia (026567949) Mixed hyperlipidemia (E78.2) Active confirmed Problem Anxiety disorder (570335465) Anxiety disorder, unspecified (F41.9) Active confirmed Problem Essential hypertensi on (38435137) Essential (primary) hypertension (I10) Active confirmed Problem Acute combined systolic and diastolic heart failure (567227675253639) Unspecified combined systolic (congestive) and diastolic (congestive) heart failure (I50.40) Active confirmed Problem Localized, primary osteoarthritis of the shoulder region (246422447) Primary osteoarthritis, left shoulder (M19.012) Active confirmed Problem Amputated above knee (407105349) Acquired absence of right leg above knee (Z89.611) Active confirmed Problem hypercholesterolemia (disorder) (03804118) Hypercholesteremia (E78.00) Active confirmed Problem Chronic kidney disea se stage 3A (disorder) (137021720) Chronic kidney disease, stage 3a (N18.31) Active confirmed Problem COPD - Chronic obstructive pulmonary disease (15435491) Chronic obstructive pulmonary disease, unspecified COPD type (J44.9) Active confirmed Problem Anxiety (02980394) Anxiety (F41.9) Active confi rmed Problem Primary hypertension (00551112) Primary hypertension (I10) Active confirmed Problem Peripheral vascular disease (393665335) Peripheral vascular disease (I73.9) Active confirmed Problem Acute headache (finding) (328434995) Acute nonintractable headache, unspecified headache type (R51.9) Active confirmed Problem Acute coronary syndrome (306112370) Acute coronary syndrome (I24.9) Active confirmed Problem Aortic valve disorde r (6052171) Moderate aortic regurgitation (I35.1) Active confirmed Problem Mononeuropathy associated with type II diabetes mellitus (867510839) 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, without long-term current use of insulin (E11.41) Active confirmed Vital Signs Heart Rate 85 /min 09/09/2024 Temperature 98.6 degrees Fahrenheit 09/09/2024 Respiratory Rate 18 /min 09/09/2024 Oximetry 94 % 09/09/2024 Blood pressure diastolic 66 mm Hg 09/09/2024 Weight-kg 108.5 kg 08/12/2024 Blood pressure systolic 105 mm Hg 09/09/2024 Weight 239.2 lbs 08/12/2024 Encounters Encounter Location Date Provider Diagnosis [address] [address] 10/23/2023 Georgia Shearer Acute coronary syndrome I24.9 ; Peripheral vascular disease I73.9 ; Primary hypertension I10 ; Mixed hyperlipidemia E78.2 ; Moderate aortic regurgitation I35.1 ; Anxiety F41.9 ; Depression, unspecified depression type F32.A ; Acquired absence of right leg above knee Z89.611 ; Chronic obstructive pulmonary disease, unspecified COPD type J44.9 and 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, without long-term current use of insulin E11.[address] [address] 12/19/2023 BRYAN FLICK 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, without long-term current use of insulin E11.41 and Weakness R53.[address] [address] 02/24/2024 Georgia Shearer Acute coronary syndrome I24.9 ; Peripheral vascular disease I73.9 ; Primary hypertension I10 ; Mixed hyperlipidemia E78.2 ; Moderate aortic regurgitation I35.1 ; Anxiety F41.9 ; Depression, unspecified depression type F32.A ; Acquired absence of right leg above knee Z89.611 ; Chronic obstructive pulmonary disease, unspecified COPD type J44.9 and 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, without long-term current use of insulin E11.[address] [address] 03/18/2024 Georgia Shearer Peripheral vascular disease I73.9 ; 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, without long-term current use of insulin E11.41 ; Acute coronary syndrome I24.9 ; Primary hypertension I10 ; Mixed hyperlipidemia E78.2 ; Moderate aortic regurgitation I35.1 ; Anxiety F41.9 ; Depression, unspecified depression type F32.A ; Acquired absence of right leg above knee Z89.611 ; Chronic obstructive pulmonary disease, unspecified COPD type J44.9 and Acute nonintractable headache, unspecified headache type R51.[address] [address] 04/30/2024 BRYAN WILSON Chronic kidney disease, stage 3a N18.31 and Acute respiratory insufficiency R06.[address] [address] 05/19/2024 Jessica Bryson Peripheral vascular disease I73.9 ; 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, without long-term current use of insulin E11.41 ; Acute coronary syndrome I24.9 ; Primary hypertension I10 ; Mixed hyperlipidemia E78.2 ; Anxiety F41.9 ; Depression, unspecified depression type F32.A ; Acquired absence of right leg above knee Z89.611 and Chronic obstructive pulmonary disease, unspecified COPD type J44.[address] [address] 06/10/2024 BRYAN WILSON Chronic kidney disease, stage 3a N18.31 and 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, without long-term current use of insulin E11.[address] [address] 07/19/2024 Rose Richey Primary hypertension I10 ; Anxiety F41.9 ; Weakness R53.1 ; Chronic kidney disease, stage 3a N18.31 ; 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, without long-term current use of insulin E11.41 ; Mixed hyperlipidemia E78.2 and Depression, unspecified depression type F32.A [address] [address] 08/12/2024 BRYAN WILSON [address] [address] 09/02/2024 Jessica Bryson Peripheral vascular disease I73.9 ; 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, without long-term current use of insulin E11.41 ; Acute coronary syndrome I24.9 ; Primary hypertension I10 ; Mixed hyperlipidemia E78.2 ; Anxiety F41.9 ; Depression, unspecified depression type F32.A ; Acquired absence of right leg above knee Z89.611 ; Chronic obstructive pulmonary disease, unspecified COPD type J44.9 ; Concussion without loss of consciousness, initial encounter S06.0X0A and Hematoma T14.8XXA [address] [address] 09/09/2024 Jessica Bryson Concussion without loss of consciousness, initial encounter S06.0X0A ; Hematoma T14.8XXA and UTI symptoms R39.9 [facility] [address] [id number] 01/19/[address] [address] 02/16/[address] [address] 04/13/[address] [address] 05/13/2024 Jessica Bryson [address] [address] 05/14/2024 Jessica Bryson [facility] [address] [place] [address] 05/18/2024 Jessica Bryson [facility] [address] [place] [address] 06/28/2024 Jessica Bryson [facility] [address] [place] [address] 07/18/2024 [facility] [address] [id number] 08/11/2024 [facility] [address] [facility]], [place] [address] 08/11/2024 [facility] STEVE [facility] [address] [facility]], [place] [address] 08/26/2024 [facility] [address] [place] [address] 09/01/2024 Jessicaangelique Bryson [facility] [address] 09/08/2024 Jessica Bryson Assessments Encounter Date Diagnosis (ICD Code) Assessment Notes Treatment Notes Treatment Clinical Notes Section Notes 10/23/2023 Peripheral vascular disease (ICD-10 - I73.9) Asymptomatic left lower extremity occlusive disease. On ASA. Followed by vascular (). Plan to follow up in one year to repeat left lower extremity arterial doppler. 10/23/2023 Acute coronary syndrome (ICD-10 - I24.9) Denies chest pain or shortness of breath. Patient has a history of septic shock and NSTEMI. On ASA lifelong and ticagrelor given elevated ischemic risk. On metoprolol and statin. Chronic HF recovered. Last EF 50-55% on echo completed 03/2023. Stent placement completed 06/05/23 Followed by cardiology (Dr. Corral). 12/19/2023 Weakness (ICD-10 - R53.1) 12/19/2023 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, without long-term current use of insulin (ICD-10 - E11.41) 02/24/2024 Peripheral vascular disease (ICD-10 - I73.9) Asymptomatic left lower extremity occlusive disease. On ASA. Followed by vascular (). Plan to follow up in one year to repeat left lower extremity arterial doppler. 02/24/2024 Acute coronary syndrome (ICD-10 - I24.9) Denies chest pain or shortness of breath. Patient has a history of septic shock and NSTEMI. On ASA lifelong and ticagrelor given elevated ischemic risk. On metoprolol and statin. Chronic HF recovered. Last EF 50-55% on echo completed 03/2023. Stent placement completed 06/05/23 Followed by cardiology (Dr. Corral). 03/18/2024 Peripheral vascular disease (ICD-10 - I73.9) Asymptomatic left lower extremity occlusive disease. On ASA. Followed by vascular (). Plan to follow up in one year to repeat left lower extremity arterial doppler. 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 Medications adjusted at time of lab review. Denies signs or symptoms or hyper/hypo glycemia. Continue current treatment plan and monitoring. 04/30/2024 Chronic kidney disease, stage 3a (ICD-10 - N18.31) 04/30/2024 Acute respiratory insufficiency (ICD-10 - R06.89) 05/19/2024 Peripheral vascular disease (ICD-10 - I73.9) Followed by vascular (). Plan to follow up in one year to repeat left lower extremity arterial doppler. 06/10/2024 Chronic kidney disease, stage 3a (ICD-10 - N18.31) 07/19/2024 Anxiety (ICD-10 - F41.9) Well managed on current medication regimen. Continue current treatment plan and monitoring. 07/19/2024 Primary hypertension (ICD-10 - I10) Well managed on current medication regimen. Continue current treatment plan and monitoring. 09/02/2024 Peripheral vascular disease (ICD-10 - I73.9) Followed by vascular (). Plan to follow up in one year to repeat left lower extremity arterial doppler. 09/09/2024 Concussion without loss of consciousness, initial encounter (ICD-10 - S06.0X0A) Denies headache currently No signs or symptoms of concussion currently. 09/09/2024 Hematoma (ICD-10 - T14.8XXA) healed 09/09/2024 UTI symptoms (ICD-10 - R39.9) Patient was given Macrobid at ER. Culture returned today negative for UTI. DC macrobid. 09/02/2024 Acute coronary syndrome (ICD-10 - I24.9) Denies chest pain or shortness of breath. Patient has a history of septic shock and NSTEMI. On ASA lifelong and ticagrelor given elevated ischemic risk. On metoprolol and statin. Chronic HF recovered. Last EF 50-55% on echo completed 03/2023. Stent placement completed 06/05/23 Followed by cardiology (Dr. Corral). 05/12/24- CHOL 107, TRIG-125, HDL 41, LDL 41 09/02/2024 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, without long-term current use of insulin (ICD-10 - E11.41) Last HbA1c 02/25/24 - 8.3%%. Medications adjusted at time of lab review. Denies signs or symptoms or hyper/hypo glycemia. Continue current treatment plan and monitoring. 06/10/2024 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, without long-term current use of insulin (ICD-10 - E11.41) 07/19/2024 Weakness (ICD-10 - R53.1) Continue to monitor. 05/19/2024 Acute coronary syndrome (ICD-10 - I24.9) Denies chest pain or shortness of breath. Patient has a history of septic shock and NSTEMI. On ASA lifelong and ticagrelor given elevated ischemic risk. On metoprolol and statin. Chronic HF recovered. Last EF 50-55% on echo completed 03/2023. Stent placement completed 06/05/23 Followed by cardiology (Dr. Corral). 05/12/24- CHOL 107, TRIG-125, HDL 41, LDL 41 05/19/2024 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, without long-term current use of insulin (ICD-10 - E11.41) Last HbA1c 02/25/24 - 8.3%%. Medications adjusted at time of lab review. Denies signs or symptoms or hyper/hypo glycemia. Continue current treatment plan and monitoring. 03/18/2024 Acute coronary syndrome (ICD-10 - I24.9) Denies chest pain or shortness of breath. Patient has a history of septic shock and NSTEMI. On ASA lifelong and ticagrelor given elevated ischemic risk. On metoprolol and statin. Chronic HF recovered. Last EF 50-55% on echo completed 03/2023. Stent placement completed 06/05/23 Followed by cardiology (Dr. Corral). 02/24/2024 Primary hypertension (ICD-10 - I10) BP elevated this visit. Denies signs or symptoms. New order provided to obtain BP BID x 1 week and to forward results to provider. 10/23/2023 Primary hypertension (ICD-10 - I10) BP well managed and trending at goal. Denies signs or symptoms. Continue current treatment plan and monitoring. 10/23/2023 Mixed hyperlipidemia (ICD-10 - E78.2) Last lipid panel completed 06/02/23. Cholesterol- 123, Triglycerides- 87, LDL- 63. On statin therapy. Denies adverse signs or symptoms. Continue current treatment plan. 02/24/2024 Mixed hyperlipidemia (ICD-10 - E78.2) Last lipid panel 10/29/23- WNL. On statin therapy. Denies adverse signs or symptoms. Continue current treatment plan. 05/19/2024 Primary hypertension (ICD-10 - I10) Stable with current management Continue current medication Report persistent BP elevated greater than 140/90 Report new or worsening symptoms of h/a, dizziness, chest pain, shortness of breath, new or worsening edema 05/05/24- BUN 23, CREAT 0.89, K 4.2, NA 145 03/18/2024 Primary hypertension (ICD-10 - I10) BP well managed and trending at goal. Denies signs or symptoms. Controlled with current medication regimen. Continue current treatment plan and monitoring. 07/19/2024 Chronic kidney disease, stage 3a (ICD-10 - N18.31) Well managed on current medication regimen. Continue current treatment plan and monitoring. 09/02/2024 Primary hypertension (ICD-10 - I10) Stable with current management Continue current medication Report persistent BP elevated greater than 140/90 Report new or worsening symptoms of h/a, dizziness, chest pain, shortness of breath, new or worsening edema 2/26/25- BUN 23, CREAT 0.89, K 4.2, NA 145 07/19/2024 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, without long-term current use of insulin (ICD-10 - E11.41) Well managed on current medication regimen. Continue current treatment plan and monitoring. 09/02/2024 Mixed hyperlipidemia (ICD-10 - E78.2) Last lipid panel 10/29/23- WNL. On statin therapy. Denies adverse signs or symptoms. Continue current treatment plan. 02/24/2024 Moderate aortic regurgitation (ICD-10 - I35.1) Denies signs or symptoms at this time. Followed by cardiology (Dr. Corral). 03/18/2024 Mixed hyperlipidemia (ICD-10 - E78.2) Last lipid panel 10/29/23- WNL. On statin therapy. Denies adverse signs or symptoms. Continue current treatment plan. 05/19/2024 Mixed hyperlipidemia (ICD-10 - E78.2) Last lipid panel 10/29/23- WNL. On statin therapy. Denies adverse signs or symptoms. Continue current treatment plan. 10/23/2023 Moderate aortic regurgitation (ICD-10 - I35.1) Denies signs or symptoms at this time. Followed by cardiology (Dr. Corral). 10/23/2023 Anxiety (ICD-10 - F41.9) Pleasant and cooperative during visit. Denies at this time. Continue current treatment plan and monitoring. 02/24/2024 Anxiety (ICD-10 - F41.9) Denies symptoms. Pleasant and cooperative during visit. Continue current treatment plan and monitoring. 05/19/2024 Anxiety (ICD-10 - F41.9) Denies symptoms. Pleasant and cooperative during visit. Continue current treatment plan and monitoring. 03/18/2024 Moderate aortic regurgitation (ICD-10 - I35.1) Denies signs or symptoms at this time. Followed by cardiology (Dr. Corral). 09/02/2024 Anxiety (ICD-10 - F41.9) Denies symptoms. Pleasant and cooperative during visit. Continue current treatment plan and monitoring. 07/19/2024 Mixed hyperlipidemia (ICD-10 - E78.2) Well managed on current medication regimen. Continue current treatment plan and monitoring. 05/19/2024 Depression, unspecified depression type (ICD-10 - F32.A) Denies at this time. Currently taking Lexapro. Continue to monitor closely. 07/19/2024 Depression, unspecified depression type (ICD-10 - F32.A) Well managed on current medication regimen. Continue current treatment plan and monitoring. 09/02/2024 Depression, unspecified depression type (ICD-10 - F32.A) Denies at this time. Currently taking Lexapro. Continue to monitor closely. 03/18/2024 Anxiety (ICD-10 - F41.9) Denies symptoms. Pleasant and cooperative during visit. Continue current treatment plan and monitoring. 02/24/2024 Depression, unspecified depression type (ICD-10 - F32.A) Denies at this time. Currently taking Lexapro. Continue to monitor closely. 10/23/2023 Depression, unspecified depression type (ICD-10 - F32.A) Denies at this time. Currently taking Lexapro. Continue to monitor closely. 10/23/2023 Acquired absence of right leg above knee (ICD-10 - Z89.611) Right AKA completed by Dr. Mcqueen on 01/24/23. Follows up with vascular annually. Wears prosthetic to RLE. Working with PT and requires assistance with some ADLs. Continue to provide support and assistance with ADLs. 02/24/2024 Acquired absence of right leg above knee (ICD-10 - Z89.611) Right AKA completed by Dr. Mcqueen on 01/24/23. Follows up with vascular annually. Wears prosthetic to RLE. Working with PT and requires assistance with some ADLs. Continue to provide support and assistance with ADLs. 03/18/2024 Depression, unspecified depression type (ICD-10 - F32.A) Denies at this time. Currently taking Lexapro. Continue to monitor closely. 05/19/2024 Acquired absence of right leg above knee (ICD-10 - Z89.611) Right AKA . Follows up with vascular annually. Wears prosthetic to RLE. Continue to provide support and assistance with ADLs. 09/02/2024 Acquired absence of right leg above knee (ICD-10 - Z89.611) Right AKA . Follows up with vascular annually. Wears prosthetic to RLE. Continue to provide support and assistance with ADLs. 09/02/2024 Chronic obstructive pulmonary disease, unspecified COPD type (ICD-10 - J44.9) Denies signs or symptoms. Continue to monitor closely. 05/19/2024 Chronic obstructive pulmonary disease, unspecified COPD type (ICD-10 - J44.9) Denies signs or symptoms. Continue to monitor closely. 03/18/2024 Acquired absence of right leg above knee (ICD-10 - Z89.611) Right AKA completed by Dr. Mcqueen on 01/24/23. Follows up with vascular annually. Wears prosthetic to RLE. Working with PT and requires assistance with some ADLs. Continue to provide support and assistance with ADLs. 02/24/2024 Chronic obstructive pulmonary disease, unspecified COPD type (ICD-10 - J44.9) Denies signs or symptoms. Continue to monitor closely. 10/23/2023 Chronic obstructive pulmonary disease, unspecified COPD type (ICD-10 - J44.9) Denies signs or symptoms. Continue to monitor closely. 10/23/2023 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, without long-term current use of insulin (ICD-10 - E11.41) Last HbA1c 06/03/23 -5.9%. Patient taking metformin and Farxiga. Well controlled with current medication regimen Denies signs or symptoms or hyper/hypo glycemia. Continue current treatment plan and monitoring. 03/18/2024 Chronic obstructive pulmonary disease, unspecified COPD type (ICD-10 - J44.9) Denies signs or symptoms. Continue to monitor closely. 02/24/2024 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, without long-term current use of insulin (ICD-10 - E11.41) Last HbA1c - 6.8%. Patient taking metformin and Farxiga. Well controlled with current medication regimen Denies signs or symptoms or hyper/hypo glycemia. Continue current treatment plan and monitoring. Obtain A1C next lab draw date. 09/02/2024 Concussion without loss of consciousness, initial encounter (ICD-10 - S06.0X0A) Patient noted to be alert and able to answer assessment questions. No signs or symptoms of concussion currently. 09/02/2024 Hematoma (ICD-10 - T14.8XXA) Continue to monitor healing well. Patient denies pain. 03/18/2024 Acute nonintractable headache, unspecified headache type (ICD-10 - R51.9) Patient c/o headache, fatigue, upset stomach and previous episodes of diarrhea. Denies SOB, CP, or cough. New order provided to obtain respiratory panel. 10/23/2023 Other Obtain CBC, CMP, A1C, and Lipid Panel next lab draw date for baseline labs. Continue current treatment plan. Staff to continue to monitor and report any changes. Patient education provided and questions/concer ns addressed. Follow up in one month unless necessary sooner. 02/24/2024 Other Continue current treatment plan. Staff to continue to monitor and report any changes. Patient education provided and questions/concer ns addressed. Follow up in one month unless necessary sooner. 03/18/2024 Other Continue current treatment plan. Staff to continue to monitor and report any changes. Patient education provided and questions/concer ns addressed. Follow up in one month unless necessary sooner. 05/19/2024 Other Continue current treatment plan. Staff to continue to monitor and report any changes. Patient education provided and questions/concer ns addressed. Follow up in one month unless necessary sooner. PLEASE REFER TO FACILITY EHR FOR UP TO DATE MEDICATIONS AND ORDERED TREATMENTS REVIEWED HIPAA RIGHTS PRIVACY PRACTICES [facility] PT/FAMILY/CAREGI JUSTO COPY OF HIPAA RIGHTS PRIVACY PRACTICES GIVEN TO PT/FAMLY/CAREGIV ER May take patient to ER for concerns over increased confusion. 07/19/2024 Other Continue current treatment plan. Follow-up on pt having sleep study. Staff to continue to monitor and report any changes.Patient education provided and questions/concer ns addressed.Follow up in one month unless necessary sooner.Reviewed HIPAA Right to Privacy Practices with patient/family/c aregiver. 09/02/2024 Other Continue current treatment plan. Staff to continue to monitor and report any changes. Patient education provided and questions/concer ns addressed. Follow up in 2-4 weeks unless necessary sooner. HIPAA POLICY REVIEWED 09/09/2024 Other Continue current treatment plan. Staff to continue to monitor and report any changes. Patient education provided and questions/concer ns addressed. Follow up in 2-4 weeks unless necessary sooner. HIPAA POLICY REVIEWED Plan Of Treatment Future Test Test Name Order Date Hemoglobin A1c 09/02/2024 Lipid Panel 09/02/2024 Basic Metabolic Panel (8) 09/02/2024 CBC 09/02/2024 Next Appt Details Provider Name:Jessica Sanchez rt, 09/23/2024 07:30:00 AM, [address] [place] [address], [id number], Insurance Providers Payer Name Payer Address Payer Phone Subscriber Number Group Number Insured Name Patient Relationship to Insured Coverage Start Date Coverage End Date [employer] of [place] [address] [place]URA [id number] [phone] [id number] Giuseppe poNayeli Self - patient is the insured [facility] [address] [place], [place] [id number] Giuseppe nicholstNayeli Self - patient is the insured Medical (General) History Medical History History ICD Code Personal history of (healed) traumatic f racture Z87.81 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
--- OUTSIDE RECORDS SUMMARY | 2024-09-17 10:35 | XMS_ITS | Encounter Summary ---
Author Organization [facility] Healthcare Address [address] [place] [address] Care Team Providers Care Retinal Surgeon Name Role Phone Rony Whitney MD Primary Care Provider [phone] Reason for Referral * Sleep Medicine (Routine) - Authorized Specialty Diagnoses / Procedures Referred By Contac t Referred To Contact Diagnoses ANITA (obstructive sleep apnea) Procedures PSG-Sleep Provider Use Only Flo Carrasco MD [address] [place] [address] [place] [id number] Phone: tel: fax: [place] [address] [place] [phone] Phone: tel: fax: Referral ID Status Reason Start Date Expiration Date V isits Requested Visits Authorized [id number] Authorized 09/16/2024 10/16/2025 1 1 Encounter Details Date Type Department Care Team (Late st Contact Info) Description 09/16/2024 Orders Only [facility] Medical Group Pulmonary Sarah [address] [place] [id number] Flo Carrasco MD [address] [place] [address] ANITA (obstructive sleep apnea) (Primary Dx) Social History Tobacco Use Types Packs/Day Years Used Date Smoking Tobacco: Former Cigarettes 3 40 Smokeless Tobacco: Never [facility] Utilities Answer Date Recorded In the past 12 months has th e electric, gas, oil, or water company threatened to shut off services in your home? No 01/08/2023 Social Connection and Isolation Panel [NHANES] A nswer Date Recorded Frequency of Communication with Friends and Fami ly Not on file 01/08/2023 Frequency of Social Gatherings with Friends and Family Not on file 01/08/2023 Attends [employer] Services Not on file 01/08 Active Member [...] place to sleep or slept in a fci (including now)? No 01/08/2023 Personal Safety Answer Date Recorded Have you ever been in or are you currently in a harmful physical or emotional relationship or is someone making you feel afraid or unsafe? Denies 06/05/2023 Comments No Sex and Gender Information Value Date Recorded Sex Assigned at Not on file Legal Sex Female 5:39 PM [employer] ATTEND[employer] Gender Identity Female 01/16/2023 6:07 AM [employer] ATTENDANT Sexual Orientation Not on file documented as of this encounter Progress Notes * Flo Carrasco MD - 09/16/2024 12:42 PM CDT I entered the CPAP titration study order documented in this encounter Plan of Treatment Scheduled Orders Name Type Priority Associated Diagnoses Orde r Schedule PSG-Sleep Provider Use Only Sleep Center Routine ANITA (obstructive sleep apnea) Expected: 09/30/2024, Expires: 09/16/2025 documented as of this encounter Visit Diagnoses Diagnosis ANITA (obstructive sleep apnea)- Primary Obstructive sleep apnea (adult) (pediatric) documented in this encounter Care Teams Retinal Surgeon Relationship Specialty Start Date End Date Rony Whitney MD [address] [address] PCP - General Family Medicine 01/07/23 documented as of this encounter
--- OUTSIDE RECORDS SUMMARY | 2024-09-17 10:36 | XMS_ITS | Clinical Summary ---
Author Organization [facility] Address [address] [place] [address] Care Team Providers Care Cardiopulmonary Technologist Name Role Phone Kenny Davis DO Primary Care Provider [phone] Allergies No known active allergies Medications traZODone (DESYREL) 100 MG tablet Take 1 tablet (100 mg total) by mouth nightly at bedtime. Active ticagrelor (BRILINTA) 90 mg tablet Take 1 tablet (90 mg total) by mouth 2 (two) times daily. 5 Active rosuvastatin (CRESTOR) 40 MG tablet Take 1 tablet (40 mg total) by mouth nightly at bedtime. at bedtime. 5 Active metFORMIN ER (GLUCOPHAGE-XR) 500 MG 24 hr tablet Take 1 tablet (500 mg total) by mouth 2 (two) times daily. Active escitalopram (LEXAPRO) 20 MG tablet Take 1 tablet (20 mg total) by mouth daily. 5 Active Cranberry 400 MG Tab Take 450 mg by mouth 2 (two) times daily. Active potassium chloride CR (KLOR-CON M) 20 MEQ tablet Take 1 tablet (20 mEq total) by mouth daily. 5 Active aspirin EC 81 MG tablet Take 1 tablet (81 mg total) by mouth daily. Active losartan (COZAAR) 50 MG tablet Take 12.5 mg by mouth daily. 7 Active metoprolol succinate ER (TOPROL-XL) 25 MG 24 hr tablet Take 1 tablet (25 mg total) by mouth daily. Active acetaminophen (TYLENOL) 325 MG tablet Take 2 tablets (650 mg total) by mouth 4 (four) times daily as needed. Active ondansetron (ZOFRAN) 4 MG tablet Take 1 tablet (4 mg total) by mouth every 6 (six) hours as needed for Nausea. Active ibandronate (BONIVA) 150 MG tablet Take 1 tablet (150 mg total) by mouth every 30 (thirty) days. Active ipratropium-alb uterol (DUONEB) 0.5-2.5 (3) MG/3ML Solution Take 3 mLs by nebulization every 4 (four) hours as needed. Active guaiFENesin 400 MG Tab Take 400 mg by mouth 2 (two) times daily as needed. Active loperamide (IMODIUM A-D) 2 MG tablet Take 1 tablet (2 mg total) by mouth 2 (two) times daily as needed for Diarrhea. Active magnesium hydroxide (MILK OF MAGNESIA) 400 MG/5ML suspension Take 30 mLs by mouth daily as needed for Constipation. Active bisacodyl (DULCOLAX) [address] 1 suppository (10 mg total) rectally daily as needed for Constipation. Active saline enema adult (FLEET) 7-19 GM/118ML Enema enema Place 133 mLs (1 enema total) rectally daily as needed for Constipation. Active saccharomyces boulardii (FLORASTOR) 250 MG capsule Take 1 capsule (250 mg total) by mouth 2 (two) times daily. Active magnesium oxide (MAG-OX) 250 MG tablet Take 1 tablet (250 mg total) by mouth daily. Active cetirizine (ZYRTEC) 10 MG tablet Take 1 tablet (10 mg total) by mouth daily. Active Senna (SENOKOT) 8.6 MG tablet Take 1 tablet (8.6 mg total) by mouth daily. Active nitrofurantoin, macrocrystal-mo nohydrate, (MACROBID) 100 MG capsule Take 1 capsule (100 mg total) by mouth 2 (two) times daily for 7 days. 14 capsule 025 Encounters Date Type Department Care Team Description 09/15/2024 6:45 AM CDT - 09/15/2024 11:59 PM CDT Hospital Encounter [facility] [address] [address] Flick, Beto, DO Discharge Disposition: Home or Self Care (Routine Discharge) 09/15/2024 Orders Only [facility] [address] [place] [address] Kenny Davis DO 09/05/2024 6:44 PM CDT - 09/06/2024 12:03 AM CDT Emergency [facility] Emergency Room [id number] [place] [id number] Sarai manning, Raul Liz MD Altered Mental Status Discharge Disposition: Home or Self Care (Routine Discharge) 09/05/2024 Travel 09/01/2024 7:15 AM CDT - 09/01/2024 11:59 PM CDT Hospital Encounter [facility] [address] [place] [address] Kenny Davis DO Discharge Disposition: Home or Self Care (Routine Discharge) 09/01/2024 Orders Only [facility] [address] [place] [address] Kenny Davis DO 08/30/2024 11:19 AM CDT - 08/30/2024 1:43 PM CDT Emergency [facility] Emergency Room [id number] [place] [phone] Jaleel Edwards MD Fall Discharge Disposition: Home or Self Care (Routine Discharge) 08/30/2024 Travel 08/17/2024 1:38 PM CDT - 08/17/2024 11:59 PM CDT Hospital Encounter [facility] [address] [place] [address] Kenny Davis DO Discharge Disposition: Home or Self Care (Routine Discharge) 08/17/2024 Orders Only [facility] [address] [place] [address] Kenny Davis DO 08/10/2024 6:35 PM CDT - 08/10/2024 11:59 PM CDT Hospital Encounter [facility] [address] [place] [address] Kenny Davis DO Discharge Disposition: Home or Self Care (Routine Discharge) 08/10/2024 Orders Only [facility] [address] [place] [address] Kenny Davis DO 07/02/2024 11:53 AM CDT - 07/02/2024 11:59 PM CDT Hospital Encounter [facility] [address] [place] [address] Kenny Davis DO Discharge Disposition: Home or Self Care (Routine Discharge) 07/02/2024 Orders Only [facility] [address] [place] [id number] Kenny Davis DO 06/24/2024 6:17 PM CDT - 06/24/2024 11:59 PM CDT Hospital Encounter [address] [address] Kenny Davis DO Discharge Disposition: Home or Self Care (Routine Discharge) 06/24/2024 Orders Only [facility] [address] [place] [address] Kenny Davis DO from Last 3 Months Social History Tobacco Use Types Packs/Day Years Used Date Smoking Tobacco: Never Assessed Comments Unknown Sex and Gender Information Value Date Recorded Sex Assigned at Female 04/11/2024 6:03 PM GIFT WRAPPER Legal Sex Female 7:08 PM CDT Gender Identity Female 09/05/2024 6:49 PM CDT Sexual Orientation Straight 09/05/2024 6: 49 PM CDT Last Filed Vital Signs Vital Sign Reading Time Taken Comments Blood Pressure 132/78 09/05/2024 9:55 PM CDT Pulse 75 09/05/2024 11:35 PM CDT Temperature 36.6 C (97.9 F) 09/05/2024 11:35 PM CDT Respiratory Rate 24 09/05/2024 11:35 PM CDT Oxygen Saturation 93% 09/05/2024 11:35 PM CDT Inhaled Oxygen Concentration - - Weight 107.5 kg (237 lb) 09/05/2024 6:46 PM CDT Height 172.7 cm (5' 8) 09/05/2024 6:46 PM CDT Body Mass Index 36.04 09/05/2024 6:46 PM CDT Plan of Treatment Health Maintenance Due Date Last Done Comments Kidney Health Evaluation 1945 Diabetes: Retinopathy Eye Exam 1965 Hepatitis C 1965 DTaP, Tdap and Td Vaccines (1 - Tdap) 1966 Pneumococcal Vaccine: 50+ Years (1 of 2 - PCV) 1966 Zoster Vaccines (1 of 2) 1997 Annual Medicare Wellness Visit 2012 Dexa Scan (General) 2012 RSV Immunization or 60+ Years (1 - 1-dose 75+ series) 2022 COVID-19 Vaccine ( - 2023- season) 2023 PHQ-2 (Physician [place]) 03/10/2024 Hemoglobin A1C 12/30/2024 06/30/2024, 02/07, 10/29/2023, Additional history exists Lipid Panel 05/12/2025 05/12/2024, 10/09, 03/18/2023 Meningococcal B Vaccine Aged Out No l onger eligible based on patient's age to complete this topic Meningococcal Vaccine Aged Out No hill varinder eligible based on patient's age to complete this topic RSV Immunizations Under 20 Months Aged Out No longer eligible based on patient's age to complete this topic Procedures Procedure Name Priority Date/Time Associated Diagnosis Comments COMPREHENSIVE METABOLIC PANEL Routine 09/15/2024 5:50 AM CDT Type 2 diabetes mellitus with mononeuropathy ([facility] HHS/HCC) Chronic obstructive asthma with exacerbation ([facility]) Hyperlipidemia CBC W/DIFF AUTOMATED Routine 09/15/2024 5:50 AM CDT Type 2 diabetes mellitus with mononeuropathy ([facility]CC HHS/HCC) Chronic obstructive asthma with exacerbation ([facility]/HCC HHS/HCC) Hyperlipidemia ACETAMINOPHEN Routine 09/15/2024 5:50 AM CDT Type 2 diabetes mellitus with mononeuropathy ([facility]/HCC HHS/HCC) Chronic obstructive asthma with exacerbation ([facility] HHS/HCC) Hyperlipidemia AMMONIA Routine 09/15/2024 5:50 AM CDT Type 2 diabetes mellitus with mononeuropathy (CMS/HCC HHS/HCC) Chronic obstructive asthma with exacerbation (CMS/HCC HHS/HCC) Hyperlipidemia COMPREHENSIVE METABOLIC PANEL STAT 09/05/2024 9:[address] HEAD WO CON STAT 09/05/2024 9:16 PM CDT XR CHEST PORTABLE STAT 09/05/2024 9:1 6 PM CDT URINE BACTERIA CULTURE STAT 09/05/2024 9:06 PM CDT URINALYSIS, AUTO, COMPLETE STAT 09/05/2024 9:06 PM CDT COMPREHENSIVE METABOLIC PANEL STAT 09/05/2024 6:52 PM CDT CBC W/DIFF AUTOMATED STAT 09/05/2024 6:52 PM CDT HELICOBACTER PYLORI, STOOL, EIA Routine 09/01/2024 7:30 AM CDT Type 2 diabetes mellitus with mononeuropathy (CMS/HCC HHS/HCC) Chronic obstructive asthma with exacerbation (CMS/HCC HHS/HCC) CALPROTECTIN FECAL Routine 09/01/2024 7: 30 AM CDT Type 2 diabetes mellitus with mononeuropathy (CMS/HCC HHS/HCC) Chronic obstructive asthma with exacerbation (CMS/HCC HHS/HCC) ELASTASE, PANCREATIC (EL-1), FECAL, QUALITATIVE/SEMI-CYNDI TITATIVE Routine 09/01/2024 7:30 AM CDT Type 2 diabetes mellitus with mononeuropathy (CMS/HCC HHS/HCC) Chronic obstructive asthma with exacerbation (CMS/HCC HHS/HCC) CT CERV SPINE WO CON STAT 08/30/2024 12:[address] HEAD WO CON STAT 08/30/2024 12:26 PM CDT URINE BACTERIA CULTURE Routine 08/17/2024 10:00 AM CDT Urinary tract infection URINALYSIS, AUTO, COMPLETE Routine 08/17/2024 10:00 AM CDT Urinary tract infection URINE BACTERIA CULTURE Routine 08/10/2024 3:30 PM CDT Urinary tract infection, site not specified URINALYSIS MICRO ONLY Routine 08/10/2024 3:30 PM CDT HC URINALYSIS AUTO W/O MICRO Routine 08/10/2024 3:30 PM CDT Urinary tract infection, site not specified CLOSTRIDIUM DIFFICILE Routine 07/02/2024 2:37 PM CDT Diabetic mononeuropathy simplex ([facility] HHS/[facility]) Diarrhea AMYLASE Routine 07/02/2024 10:00 AM CDT Diabetic mononeuropathy simplex ([facility] HHS/HCC) LIPASE Routine 07/02/2024 10:00 AM CDT Diabetic mononeuropathy simplex ([facility] HHS/[facility]) URINE BACTERIA CULTURE Routine 06/24/2024 1:00 PM CDT Urinary tract infection URINALYSIS, AUTO, COMPLETE Routine 06/24/2024 1:00 PM CDT Urinary tract infection LIPID PANEL Routine 05/12/2024 6:45 AM GIFT WRAPPER Encounter for long-term (current) drug use Hyperlipidemia HEMOGLOBIN, GLYCOSYLATED Routine 02/25/2024 5:30 AM GIFT WRAPPER Diabetes mellitus ([facility] HHS/HCC) from Last 3 Months or Most Recently Relevant to Health Maintenance Results * (ABNORMAL) COMPREHENSIVE METABOLIC PANEL (09/15/2024 5:50 AM CDT) Only the most recent of3 resultswithin the time period is included. [facility] Signature GLUCOSE 217(H) 70 - 99 MG/DL 09/15/2024 7:36 AM CDT [facility] BUN 13 7 - 18 MG/DL 09/15/2024 7:36 AM CDT [facility] CREATININE S/P/B 0.74 0.50 - 1.20 MG/DL 09/15/2024 7:36 AM CDT [facility] SODIUM S/P/B 138 136 - 145 MMOL/L 09/15/2024 7:36 AM CDT [facility] POTASSIUM S/P/B 4.3 3.5 - 5.1 MMOL/L 09/15/2024 7:36 AM CDT [facility] CHLORIDE S/P/B 102 100 - 108 MMOL/L 09/15/2024 7:36 AM CDT [facility] CO2 29.8 21.0 - 32.0 MMOL/L 09/15/2024 7:36 AM CDT [facility] CALCIUM S/P/B 8.2(L) 8.5 - 10.1 MG/DL 09/15/2024 7:36 AM CDT [facility] BILIRUBIN TOTAL S/P/B 0.3 0.2 - 1.2 MG/DL 09/15/2024 7:36 AM CDT [facility] Comment: THIS ASSAY IS NOT RECOMMENDED FOR PATIENTS UNDERGOING TREATMENT WITH ELTROMBOPAG DUE TO THE POTENTIAL FOR FALSELY ELEVATED RESULTS. TOTAL PROTEIN S/P/B 6.7 6.4 - 8.2 G/DL 09/15/2024 7:36 AM CDT [facility] ALBUMIN S/P/B 3.0(L) 3.4 - 5.0 G/DL 09/15/2024 7:36 AM CDT [facility] AST 35 15 - 37 U/L 09/15/2024 7:36 AM CDT [facility] ALT 56(H) 14 - 55 U/L 09/15/2024 7:36 AM CDT [facility] ALKALINE PHOSPHATASE S/P/B 111 50 - 136 U/L 09/15/2024 7:36 AM CDT [facility] ANION GAP 6.2 5.0 - 15.0 MMOL/L 09/15/2024 7:36 AM CDT [facility] BUN CREATININE RATIO 17.6 6 - 26 09/15/2024 7:36 AM CDT [facility] A/G RATIO 0.8(L) 1.0 - 2.5 RATIO 09/15/2024 7:36 AM CDT [facility] GFR ESTIMATE 83(L) >90 ML/MIN/1.7 3 M2 09/15/2024 7:36 AM CDT [facility] Comment: NOTE: eGFR is not calculated for patients <18 years of age. This is an estimated GFR calculation using the new CKD EPI creatinine equation without race and so does not require a correction factor for race. This estimated GFR should not be used for calculating drug doses. 09/15/2024 5:50 AM CDT us Kenny Davis DO LABORATORY Final Result [address] [address], * (ABNORMAL) CBC W/DIFF AUTOMATED (09/15/2024 5:50 AM CDT) Only the most recent of2 resultswithin the time period is included. WBC 6.00 4.50 - 11.00 x10'3/uL 09/15/2024 7:27 AM CDT [facility] RBC 4.04 4.00 - 5.20 x10'6/uL 09/15/2024 7:27 AM CDT [facility] HGB 11.1(L) 12.0 - 16.0 G/DL 09/15/2024 7:27 AM CDT [facility] HCT 35.5(L) 38.0 - 48.0 % 09/15/2024 7:27 AM CDT [facility] MCV 87.9 80.0 - 100.0 FL 09/15/2024 7:27 AM CDT [facility] MCH 27.5 26.0 - 34.0 PG 09/15/2024 7:27 AM CDT [facility] MCHC 31.3 31.0 - 37.0 G/DL 09/15/2024 7:27 AM CDT [facility] RDW 14.7 11.6 - 14.8 % 09/15/2024 7:27 AM CDT [facility] PLT 228 130 - 400 x10'3/uL 09/15/2024 7:27 AM CDT [facility] MPV 10.9 7.0 - 12.0 FL 09/15/2024 7:27 AM CDT [facility] CBC COMMENT AUTOMATED RBC MORPHOLOGY AND PLATELET EVALUATION NORMAL 09/15/2024 7:27 AM CDT [facility] NEUTROPHILS % 61.0 40.0 - 74.0 % 09/15/2024 7:27 AM CDT [facility] LYMPHOCYTES % 24.0 14.0 - 46.0 % 09/15/2024 7:27 AM CDT [facility] MONOCYTES % 9.8 4.0 - 13.0 % 09/15/2024 7:27 AM CDT [facility] EOSINOPHILS 3.7 0.0 - 7.0 % 09/15/2024 7:27 AM CDT [facility] BASOPHILS 0.8 0.0 - 3.0 % 09/15/2024 7:27 AM CDT [facility] IMMATURE GRANS % 0.7(H) 0.0 - 0.43 % 09/15/2024 7:27 AM CDT [facility] NRBC % 0.0 % 09/15/2024 7:27 AM CDT [facility] ABS. NEUTROPHILS TOTAL 3.66 1.69 - 7.81 x10'3/uL 09/15/2024 7:27 AM CDT [facility] ABS. LYMPHOCYTES 1.44 0.21 - 5.42 x10'3/uL 09/15/2024 7:27 AM CDT [facility] ABS. MONOCYTES 0.59 0.04 - 1.37 x10'3/uL 09/15/2024 7:27 AM CDT [facility] ABS. EOSINOPHILS 0.22 0.00 - 0.68 x10'3/uL 09/15/2024 7:27 AM CDT [facility] ABS. BASOPHILS 0.05 0.00 - 0.08 x10'3/uL 09/15/2024 7:27 AM CDT [facility] ABS. IMMATURE GRANULOCYTES 0.04 0.00 - 0.06 x10'3/uL 09/15/2024 7:27 AM CDT [facility] ABS. NUCLEATED RBC'S 0.00 0.00 - 0.01 x10'3/uL 09/15/2024 7:27 AM CDT [facility] 09/15/2024 5:50 AM CDT us Kenny Davis DO LABORATORY Final Result Performing Organization Address [facility]/ZIP Co de Phone Number [facility] [address] [place] [address], [place] * AMMONIA (09/15/2024 5:50 AM CDT) AMMONIA <17 11.0 - 32.0 UMOL/L 09/15/2024 7:43 AM CDT [facility] 09/15/2024 5:50 AM CDT us Kenny Davis DO LABORATORY Final Result Performing Organization Address City/[facility]/ZIP Co de Phone Number [facility] [address] [place] [address], [place] * (ABNORMAL) ACETAMINOPHEN (09/15/2024 5:50 AM CDT) ACETAMINOPHEN S/P/B 0(L) 10 - 30 MCG/ML 09/15/2024 7:36 AM CDT [facility] 09/15/2024 5:50 AM CDT Kenny Davis DO LABORATORY Final Result [facility] [address] [place] [address], [place] * CT HEAD WO CON (09/05/2024 9:16 PM CDT) Only the most recent of2 resultswithin the time period is included. Anatomical Region Laterality Modality Head Computed Tomogra phy 09/05/2024 10:0 1 PM CDT Impressions 09/05/2024 10:05 PM CDT IMPRESSION: 1. No acute intracranial findings. If there is persistent clinical concern for acute ischemia, brain MRI is more sensitive. 2. Cerebral volume loss and chronic microvascular change. Referred By: Interpreted By: Jude Mariano MD, 09/05/2024 10:01 PM Narrative 09/05/2024 10:05 PM CDT [facility] [address] [place] [address] EXAMINATION: CT of the head EXAM DATE/TIME: 09/05/2024 9:16 PM REASON FOR EXAM: 79 years of age, Female, with altered mental status, hypertension, hyperglycemia, weakness COMPARISON: Head CT 08/30/2024 TECHNIQUE: Axial CT images of the brain are obtained from skull base through vertex without the use of IV contrast agent. A dose lowering technique was used for this procedure, which may include, but is not limited to, dose reduction technique, automated exposure control, iterative reconstruction, ALARA (As Low As Reasonably Achievable), or Image Gently techniques. FINDINGS: Cerebral volume loss. Periventricular and subcortical white matter hypodensities are seen, which likely represent sequelae of chronic microvascular change. No acute intracranial hemorrhage or CT evidence of acute-subacute, large territory infarct. There is no evidence of hydrocephalus, extraaxial fluid collection, mass effect or midline shift. There is no acute displaced calvarial fracture. Visualized paranasal sinuses and mastoid air cells are clear. Procedure Note Jude Mariano MD - 09/05/2024 [facility] [address] [place] [address] EXAMINATION: CT of the head EXAM DATE/TIME: 09/05/2024 9:16 PM REASON FOR EXAM: 79 years of age, Female, with altered mental status,hypertension, hyperglycemia, weakness COMPARISON: Head CT 08/30/2024 TECHNIQUE: Axial CT images of the brain are obtained from skull basethrough vertex without the use of IV contrast agent. A dose loweringtechnique was used for this procedure, which may include, but is notlimited to, dose reduction technique, automated exposure control,iterative reconstruction, ALARA (As Low As Reasonably Achievable), orImage Gently techniques. FINDINGS: Cerebral volume loss. Periventricular and subcortical white matterhypodensities are seen, which likely represent sequelae of chronicmicrovascular change. No acute intracranial hemorrhage or CT evidence of acute-subacute, largeterritory infarct. There is no evidence of hydrocephalus, extraaxial fluid collection, masseffect or midline shift. There is no acute displaced calvarial fracture. Visualized paranasal sinuses and mastoid air cells are clear. IMPRESSION: 1. No acute intracranial findings. If there is persistent clinicalconcern for acute ischemia, brain MRI is more sensitive. 2. Cerebral volume loss and chronic microvascular change. Referred By: Interpreted By: Jude Mariano MD, 09/05/2024 10:01 PM Raul Yu MD CT Final Result * XR CHEST PORTABLE (09/05/2024 9:16 PM CDT) Anatomical Region Laterality Modality Chest Radiographic Yasmin ging 09/05/2024 9:56 PM CDT Impressions 09/05/2024 9:57 PM CDT IMPRESSION: ======== 1. Minimal infiltrates or atelectasis in the right lower lung Referred By: Interpreted By: Abdirashid Hastings MD, 09/05/2024 9:56 PM Narrative 09/05/2024 9:57 [place] [address] Examination: Chest x-ray 1 view Exam Date/Time: 09/05/2024 8:56 PM Reason For Exam: weakness Altered mental status, weakness, hypertension today Comparison: Chest radiograph 05/19/2024 Technique: Single AP view of the chest was obtained. Findings: Minimal interstitial infiltrates in the right mid and lower lung new from prior study. No large effusion. No pneumothorax. No consolidative changes. Heart size stable. Atherosclerotic aorta. Degenerative changes in the shoulders. Pulmonary vasculature within normal limits. ======== Procedure Note Abdirashid Hastings MD - 09/05/2024 [place] [address] Examination: Chest x-ray 1 view Exam Date/Time: 09/05/2024 8:56 PM Reason For Exam: weakness Altered mental status, weakness, hypertension today Comparison: Chest radiograph 05/19/2024 Technique: Single AP view of the chest was obtained. Findings: Minimal interstitial infiltrates in the right mid and lower lungnew from prior study. No large effusion. No pneumothorax. Noconsolidative changes. Heart size stable. Atherosclerotic aorta.Degenerative changes in the shoulders. Pulmonary vasculature withinnormal limits. ======== IMPRESSION: ======== 1. Minimal infiltrates or atelectasis in the right lower lung Referred By: Interpreted By: Abdirashid Hastings MD, 09/05/2024 9:56 PM Raul Yu MD GENERAL IMAGING Final Result * URINE BACTERIA CULTURE (09/05/2024 9:06 PM CDT) Only the most recent of4 resultswithin the time period is included. SPEC DESCRIPTION URINE CLEAN CATCH 09/06/2024 11:15 AM CDT [facility] SPECIAL REQUESTS NO SPECIAL REQUEST 09/06/2024 11:15 AM CDT [facility] CULTURE RESULT POLYMICROBIAL GROWTH CONSISTENT WITH NORMAL GENITAL GOPI. SUSCEPTIBILITIES NOT ROUTINELY PERFORMED. 09/07/2024 9:26 AM CDT [facility] URINE SPECIMEN OBTAINED BY CLEAN CATCH PROCEDURE / Unknown 09/05/2024 9:06 PM CDT 09/06/2024 11:18 AM CDT Raul Yu MD MICROBIOLOGY - G ENERAL ORDERABLES Final Result [facility] [address] [place] [address], [place] [phone] [facility] [address] [place] [address], [place] [phone] * (ABNORMAL) URINALYSIS, AUTO, COMPLETE (09/05/2024 9:06 PM CDT) Only the most recent of3 resultswithin the time period is included. COLOR (U) YELLOW 09/05/2024 10:12 PM CDT [facility] TRANSPARENCY CLOUDY 09/05/2024 10:12 PM CDT [facility] SPECIFIC GRAVITY (U) 1.015 1.000 - 1.030 09/05/2024 10:12 PM CDT [facility] U PH 7.0 5.0 - 9.0 09/05/2024 10:12 PM CDT [facility] LEUKOCYTES (U) 2+(A) NEGATIVE 09/05/2024 10:12 PM CDT [facility] NITRITES NEGATIVE NEGATIVE 09/05/2024 10:12 PM CDT [facility] PROTEIN RANDOM (U) 1+(A) NEGATIVE 09/05/2024 10:12 PM CDT [facility] GLUCOSE (U) 1+(A) NEGATIVE 09/05/2024 10:12 PM CDT [facility] KETONES MG/DL (U) NEGATIVE NEGATIVE 09/05/2024 10:12 PM CDT [facility] BILIRUBIN (U) NEGATIVE NEGATIVE 09/05/2024 10:12 PM CDT [facility] BLOOD (U) 2+(A) NEGATIVE 09/05/2024 10:12 PM CDT [facility] WBC/HPF 10-25 0 - 5 /HPF 09/05/2024 10:12 PM CDT [facility] RBC/HPF 5-10 0 - 5 /HPF 09/05/2024 10:12 PM CDT [facility] EPI/HPF RARE /HPF 09/05/2024 10:12 PM CDT [facility] URINE, STRAIGHT CATH 09/05/2024 9:06 PM CDT us Raul Yu MD URINE ORDERABLES Final Result [facility] [address] [place] [address], [place] [phone] * CALPROTECTIN FECAL (09/01/2024 7:30 AM CDT) CALPROTECTIN (STOOL) <5 mcg/g 09/10/2024 1:06 AM CDT [facility] Comment: Reference Range: <50 Normal 50-120 Borderline >120 Elevated Calprotectin in Crohn's disease and ulcerative colitis can be five to several thousand times above the reference population (50 mcg/g or less). Levels are usually 50 mcg/g or less in healthy patients and with irritable bowel syndrome. Repeat testing in 4-6 weeks is suggested for borderline values. Test performed by [employer] [facility] [address] [place] [address] Product Applications Scientist: Jessica Pang MD,PHD,MARY JANE Test Reported by [facility] [employer], [address] [place] [address] George Shannon M.D., Ph.D., Director of Laboratories , [facility] [id number] STOOL SPECIMEN / Unknown 09/01/2024 7:30 AM CDT us Kenny Davis DO BODY FLUIDS AND STOOLS ORDERABLE S Final Result [employer] [facility] [address] [place] [address], * (ABNORMAL) ELASTASE, PANCREATIC (EL-1), FECAL, QUALITATIVE/SEMI-QUANTITATIVE (09/01/2024 7:30 AM CDT) PANCREATIC ELASTASE-1 68(L) >200 mcg/g 09/09/2024 12:11 AM CDT [employer] [id number] network disksJOHANNALISETH LY Comment: E-1 mcg/g feces Interpretation <100 Severe exocrine pancreatic insufficiency 100-200 Mild to moderate exocrine pancreatic insufficiency >200 Normal Test performed by [employer] [id number] [email or web address] [address] Product Applications Scientist: Jessica Pang MD,PHD,MARY JANE Test Reported by [facility] [employer], [address] [place], [place] George Shannon M.D., Ph.D., Director of Laboratories , CLIA [id number] STOOL SPECIMEN / Unknown 09/01/2024 7:30 AM CDT us Kenny Davis DO BODY FLUIDS AND STOOLS ORDERABLE S Final Result Performing Organization Address [facility]/ZIP Co de Phone Number [employer] [facility] [address] [place], [place] , [place] [phone] * HELICOBACTER PYLORI, STOOL, EIA (09/01/2024 7:30 AM CDT) H. PYLORI AG (STOOL) Not Detected Not Detected 09/03/2024 6:14 PM CDT [employer] JONHJOHANNAGUERO EFREM Comment: Antimicrobials, proton pump inhibitors, and bismuth preparations inhibit H. pylori and ingestion up to two weeks prior to testing may cause false negative results. If clinically indicated the test should be repeated on a new specimen obtained two weeks after discontinuing treatment. Test Performed by [employer] [place], [facility], [address] [place], [place] George Shannon M.D., Ph.D., Director of Laboratories , CLIA [id number] STOOL SPECIMEN / Unknown 09/01/2024 7:30 AM CDT us Kenny Davis DO MICROBIOLOGY - GENERAL ORDERABLE S Final Result Performing Organization Address City/[facility]/ZIP Co de Phone Number [employer] [facility] [address] [place], [place] , [place] [phone] * CT CERV SPINE WO CON (08/30/2024 12:26 PM CDT) Anatomical Region Laterality Modality Spine Computed Tomogra phy 08/30/2024 12:3 6 PM CDT Impressions 08/30/2024 12:42 PM CDT IMPRESSION: HEAD CT: 1. No definite CT evidence of acute intracranial abnormality, as above. 2. Small vessel disease and volume loss. CERVICAL SPINE CT: 1. No definite acute fractures identified in the cervical spine. 2. Degenerative changes. Referred By: Interpreted By: Garfield Casarez MD, 08/30/2024 12:36 PM Narrative 08/30/2024 12:42 PM CDT [facility] [address] [address] [place] [id number] EXAMINATION: CT of the head and CT cervical spine without contrast CLINICAL HISTORY: Fall. Head injury. Pain. COMPARISON: Head CT 05/19/2024 TECHNIQUE: CT examinations of the head and cervical spine were performed without contrast, with axial and multiplanar reformatted images obtained. A dose lowering technique was used for this procedure, which may include, but is not limited to, dose reduction technique, automated exposure control, the use of iterative reconstruction, and ALARA (As Low As Reasonably Achievable) / Image Gently techniques. FINDINGS: HEAD CT: No acute intracranial hemorrhage, extra-axial collections, intracranial mass effect, or midline shift. Grossly stable small vessel disease, intracranial vascular calcifications, and volume loss. No definite CT evidence of acute territorial infarction, though MRI would be more sensitive. No depressed calvarial fractures. Mastoid air cells and paranasal sinuses are clear. Visualized orbits unremarkable. CERVICAL SPINE CT: Straightening of the cervical lordosis. Slight anterolisthesis of C3 on C4 and C4 on C5. Rotation of C1 relative to C2. Otherwise the cervical vertebral alignment, and facet alignment are maintained. Multilevel degenerative changes are evident in the cervical spine with disc degeneration, endplate/uncovertebral osteophytes, and facet hypertrophy noted. Imaged portions of the soft tissues reveal atherosclerotic vascular calcifications. Procedure Note Garfield Casarez MD - 08/30/2024 [facility] [address] [place] [id number] EXAMINATION: CT of the head and CT cervical spine without contrast CLINICAL HISTORY: Fall. Head injury. Pain. COMPARISON: Head CT 05/19/2024 TECHNIQUE: CT examinations of the head and cervical spine were performedwithout contrast, with axial and multiplanar reformatted imagesobtained. A dose lowering technique was used for this procedure, which may include,but is not limited to, dose reduction technique, automated exposurecontrol, the use of iterative reconstruction, and ALARA (As Low AsReasonably Achievable) / Image Gently techniques. FINDINGS: HEAD CT: No acute intracranial hemorrhage, extra-axial collections, intracranialmass effect, or midline shift. Grossly stable small vessel disease,intracranial vascular calcifications, and volume loss. No definite CTevidence of acute territorial infarction, though MRI would be moresensitive. No depressed calvarial fractures. Mastoid air cells andparanasal sinuses are clear. Visualized orbits unremarkable. CERVICAL SPINE CT: Straightening of the cervical lordosis. Slight anterolisthesis of C3 on C4and C4 on C5. Rotation of C1 relative to C2. Otherwise the cervicalvertebral alignment, and facet alignment are maintained. Multileveldegenerative changes are evident in the cervical spine with discdegeneration, endplate/uncovertebral osteophytes, and facet hypertrophynoted. Imaged portions of the soft tissues reveal atherosclerotic vascularcalcifications. IMPRESSION: HEAD CT: 1. No definite CT evidence of acute intracranial abnormality, as above. 2. Small vessel disease and volume loss. CERVICAL SPINE CT: 1. No definite acute fractures identified in the cervical spine. 2. Degenerative changes. Referred By: Interpreted By: Garfield Casarez MD, 08/30/2024 12:36 PM Jaleel Edwards MD CT Final Result * (ABNORMAL) URINALYSIS (08/10/2024 3:30 PM CDT) COLOR (U) STRAW 08/10/2024 7:11 PM CDT [facility] TRANSPARENCY CLEAR 08/10/2024 7:11 PM CDT [facility] SPECIFIC GRAVITY (U) <1.005 1.000 - 1.030 08/10/2024 7:11 PM CDT [facility] U PH 6.5 5.0 - 9.0 08/10/2024 7:11 PM CDT [facility] LEUKOCYTES (U) 1+(A) NEGATIVE 08/10/2024 7:11 PM CDT [facility] NITRITES NEGATIVE NEGATIVE 08/10/2024 7:11 PM CDT [facility] PROTEIN RANDOM (U) NEGATIVE NEGATIVE 08/10/2024 7:11 PM CDT [facility] GLUCOSE (U) 1+(A) NEGATIVE 08/10/2024 7:11 PM CDT [facility] KETONES MG/DL (U) NEGATIVE NEGATIVE 08/10/2024 7:11 PM CDT [facility] BILIRUBIN (U) NEGATIVE NEGATIVE 08/10/2024 7:11 PM CDT [facility] BLOOD (U) NEGATIVE NEGATIVE 08/10/2024 7:11 PM CDT [facility] URINE NORMAN RARE 08/10/2024 7:11 PM CDT [facility] Comment: SMALL BUDDING YEAST FEW YEAST WITH PSEUDOHYPHAE URINE SPECIMEN / Unknown 08/10/2024 3:30 PM CDT Kenny Davis DO URINE ORDERABLES Final Result [facility] [address] [place] [address], [place] [phone] * URINALYSIS MICRO ONLY (08/10/2024 3:30 PM CDT) WBC/HPF 0-5 0 - 5 /HPF 08/10/2024 7:11 PM CDT [facility] RBC/HPF NONE SEEN 0 - 5 /HPF 08/10/2024 7:11 PM CDT [facility] EPI/HPF FEW /HPF 08/10/2024 7:11 PM CDT [facility] 08/10/2024 3:30 PM CDT us Kenny Davis DO URINE ORDERABLES Final Result Performing Organization Address [facility] Co de Phone Number [facility] [address] [place] [address], [place] [phone] * CLOSTRIDIUM DIFFICILE (07/02/2024 2:37 PM CDT) GDH ANTIGEN NEGATIVE NEGATIVE 07/02/2024 8:37 PM CDT [facility] C DIFFICILE TOXIN A&B (STOOL) NEGATIVE NEGATIVE 07/02/2024 8:37 PM CDT [facility] COMMENT GDH NEGATIVE/TOXI N A & B NEGATIVE: NEGATIVE FOR TOXIGENIC C. DIFFICILE. GDH NEGATIVE/TOXI N A & B NEGATIVE: NEGATIVE FOR TOXIGENIC C. 07/02/2024 8:37 PM CDT [facility] STOOL SPECIMEN / Unknown 07/02/2024 2:37 PM CDT us Kenny Davis DO BODY FLUIDS AND STOOLS ORDERABLE S Final Result Performing Organization Address [facility] de Phone Number [facility] [address] [place] [address], [place] [phone] * AMYLASE (07/02/2024 10:00 AM CDT) AMYLASE S/P/B 37 25 - 115 UNITS/L 07/02/2024 12:08 PM CDT [facility] 07/02/2024 10:0 0 AM CDT us Kenny Davis DO LABORATORY Final Result Performing Organization Address [facility] Co de Phone Number [facility] [address] [place] [address], [place] [phone] * LIPASE (07/02/2024 10:00 AM CDT) LIPASE 23 16 - 77 UNITS/L 07/02/2024 12:08 PM CDT [facility] 07/02/2024 10:0 0 AM CDT Kenny Davis DO LABORATORY Final Result [facility] [address] [place] [address], * LIPID PANEL (05/12/2024 6:45 AM GIFT WRAPPER) CHOLESTEROL 107 <200 MG/DL 05/12/2024 2:28 PM GIFT WRAPPER [facility] TRIGLYCERIDES 125 <150 MG/DL 05/12/2024 2:28 PM GIFT WRAPPER [facility] HDL 41 >40.0 MG/DL 05/12/2024 2:28 PM GIFT WRAPPER [facility] LDL (CALCULATED) 41 <100 MG/DL 05/13/19 2:28 PM [facility] NON HDL CHOLESTEROL 66 <130 MG/DL 05/12 2:28 PM GIFT WRAPPER [facility] CHOL/HDL RATIO 2.6 0.0 - 4.5 05/12/2024 2:28 PM [facility] VLDL CALCULATION 25 5 - 55 MG/DL 05/12/2024 2:28 PM [facility] LIPID INTERPRETATION 05/12/2024 2:28 PM [facility] Comment: [facility] CONCENSUS REPORT RECOMMENDATIONS: ADULT CHILD LOW RISK: CHOLESTEROL <200 <170 TRIGLYCERIDE <150 --- HDL >=60 --- LDL <100 <110 BORDERLINE: CHOLESTEROL 200-239 170-199 TRIGLYCERIDE 150-199 --- HDL 40-59 --- LDL 100-159 110-129 HIGH RISK: CHOLESTEROL >=240 >=200 TRIGLYCERIDE >=200 --- HDL <40 --- LDL >=160 >=130 05/12/2024 6:45 AM GIFT WRAPPER us Kenny Davis DO LABORATORY Final Result [facility] [address] [place] [address], from Last 3 Months or Most Recently Relevant to Health Maintenance Additional Health Concerns Infection Onset Date Last Indicated 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
--- OUTSIDE RECORDS SUMMARY | 2024-09-17 10:36 | XMS_ITS | Encounter Summary ---
Author Organization [facility] Healthcare Address [address] [place] [address] Care Team Providers Care Hide Trimmer Name Role Phone Rony Whitney MD Primary Care Provider [phone] Reason for Referral * Sleep Medicine (Routine) - Closed Specialty Diagnoses / Procedures Referred By Timi fontenot Referred To Contact Diagnoses Snoring Hypersomnia, unspecified Procedures Portable/Home Sleep Study Flo Carrasco MD [facility] [address] [place] [address] Phone: tel: fax: [place] [address] [place] [phone] Phone: tel: fax: Referral ID Status Reason Start Date Expiration Date Visits Re quested Visits Authorized [id number] Closed 07/19/2024 08/18/2025 1 1 Reason for Visit * Sleep Medicine (Routine) - Closed Specialty Diagnoses / Procedures Referred By Timi fontenot Referred To Contact Diagnoses Snoring Hypersomnia, unspecified Procedures Portable/Home Sleep Study Flo Carrasco MD [address] [facility] [address] [place] [address] Phone: tel: fax: [facility] [address] [place] [phone] Phone: tel: fax: Referral ID Status Reason Start Date Expiration Date Visits Re quested Visits Authorized [id number] Closed 07/19/2024 08/18/2025 1 1 Encounter Details Date Type Department Care Team (Latest Contact Info) Description 09/15/2024 12:52 PM CDT - 09/15/2024 11:59 PM CDT Hospital Encounter [facility] [address] [place] [address] Snoring; Hypersomnia, unspecified Discharge Disposition: Discharge to home or self care Social History Tobacco Use Types Packs/Day Years Used Date Smoking Tobacco: Former Cigarettes 3 40 Smokeless Tobacco: Never [facility] Utilities Answer Date Recorded In the past 12 months has e electric, gas, oil, or water company threatened to shut off services in your home? No 01/08/2023 Social Connection and Isolation Panel [NHANES] A nswer Date Recorded Frequency of Communication with Friends and Fami ly Not on file 01/08/2023 Frequency of Social Gatherings with Friends and Family Not on file 01/08/2023 Attends Buddhism Services Not on file 01/08 Active Member [...] money to buy more. Never true 01/09/20 Within the past 12 months, t he [...] place to sleep or slept in a long-term (including now)? No 01/08/2023 Personal Safety Answer Date Recorded Have you ever been in or are you currently in a harmful physical or emotional relationship or is someone making you feel afraid or unsafe? 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 Gender Identity Female 01/16/2023 6:07 AM INTERMEDIATE SCHOOL TEACHER Sexual Orientation Not on file documented as of this encounter Medications at Time of Discharge acetaminophen (TYLENOL) 325 mg tablet Take 2 tablets (650 mg total) by mouth every 4 (four) hours as needed for pain aspirin 81 mg enteric coated tablet Take 1 tablet (81 mg total) by mouth daily cefTRIAXone (ROCEPHIN) 2 gram injection INJECT 2GM INTRAMUSCULARLY IN THE MORNING FOR 8 DOSES (DILUTE W/4.2ML OF LIDOCAINE) 06/30/2024 cranberry fruit 400 mg tablet Take by mouth docusate sodium (COLACE) 100 mg capsuleIndicati ons:constipatio n Take 1 capsule (100 mg total) by mouth 2 (two) times a day doxycycline hyclate 100 mg capsule GIVE 1 TABLET BY MOUTH TWO TIMES A DAY FOR INFECTION FOR 10 DAYS 05/01/2024 escitalopram (LEXAPRO) 20 mg tablet Take 2 tablets (40 mg total) by mouth nightly 12/23/2022 fluconazole (DIFLUCAN) 150 mg tablet TAKE 1 TABLET BY MOUTH FOR ONE TIME DOSE (ER BOX FROM 04/10/24) 04/13/2024 guaiFENesin (ROBITUSSIN) 400 mg tablet Take 1 tablet (400 mg total) by mouth ibandronate (BONIVA) 150 mg tablet Take 1 tablet (150 mg total) by mouth every 30 (thirty) days Take in AM with glass of water prior to food, don't lie down for 30 minutes. ipratropium-alb uteroL (DUO-NEB) 0.5-2.5 mg/3 mL nebulizer solution Take by nebulization every 6 (six) hours lidocaine (XYLOCAINE) 10 mg/mL (1 %) injection DILUTE CEFTRIAXONE W/4.2ML OF LIDOCAINE IN THE MORNING FOR 8 DOSES 06/30/2024 loperamide (IMODIUM A-D) 2 mg tablet Take 1 tablet (2 mg total) by mouth 4 (four) times a day as needed for diarrhea LORazepam (ATIVAN) 0.5 mg tablet Take 1 tablet (0.5 mg total) by mouth every 6 (six) hours as needed for anxiety losartan (COZAAR) 25 mg tablet Take 1 tablet (25 mg total) by mouth daily 06/30/2024 magnesium hydroxide (MILK OF MAGNESIA) suspension 400 mg/5 mL magnesium oxide (MAG-OX) 400 mg (241.3 mg elemental magnesium) tabletIndicatio ns:hypomagnesem ia Take 1 tablet (400 mg total) by mouth 2 (two) times a day 20 tablet 02/03/2023 metFORMIN XR (GLUCOPHAGE XR) 500 mg 24 hr tablet Take 1 tablet (500 mg total) by mouth 2 (two) times a day 12/23/2022 metoprolol XL (TOPROL-XL) 25 mg extended release tablet Take 1 tablet (25 mg total) by mouth nightly 06/30/2024 07/01/19 26 mirtazapine (REMERON) 7.5 mg tablet TAKE 1 TABLET BY MOUTH AT BEDTIME FOR DEPRESSION 05/06/2024 ondansetron (ZOFRAN) 4 mg tablet Take 1 tablet (4 mg total) by mouth every 8 (eight) hours as needed for nausea or vomiting polyethylene glycol (MIRALAX) 17 gram/dose bulk powder Take 17 g by mouth daily potassium chloride ER 20 mEq CR tablet Take 1 tablet (20 mEq total) by mouth daily 02/23/2023 rosuvastatin (CRESTOR) 40 mg tablet Take 1 tablet (40 mg total) by mouth nightly at bedtime. 06/30/2024 sodium phosphates (FLEET) 19-7 gram/118 mL enema Insert 1 enema (118 mL total) into the rectum traZODone (DESYREL) 100 mg tablet Take 1 tablet (100 mg total) by mouth nightly 12/23/2022 UNABLE TO FIND - ENTER DRUG NAME IN NOTES TO PHARMACY Probiotic 1 unit UNABLE TO FIND Cranberry oral 450 mg UNABLE TO FIND Senokot 1 tablet documented as of this encounter Discharge Disposition Disposition Code Departure Means Destination Discharge to home or self care documented in this encounter Miscellaneous Notes * Addendum Note - Flo Carrasco MD - 09/15/2024 2:00 PM CDTEncounter addended by: Flo Carrasco MD on: 09/16/2024 12:41 PM Actions taken: Charge Capture section accepted documented in this encounter Plan of Treatment Not on file documented as of this encounter Procedures Procedure Name Priority Date/Time Associated Diagnosis Comments PORTABLE/HOME SLEEP STUDY Routine 09/15/2024 12:52 PM CDT Snoring Hypersomnia, unspecified documented in this encounter Results * Portable/Home Sleep Study (09/15/2024 12:52 PM CDT) us Flo Carrasco MD SLEEP CENTER ORDERABLES F inal Result [facility] [address] [place] [address] documented in this encounter Visit Diagnoses Diagnosis Snoring Other dyspnea and respiratory abnormality Hypersomnia, unspecified documented in this encounter Care Teams Hide Trimmer Relationship Specialty Start Date End Date Rony Whitney MD [address] [address] PCP - General Family Medicine 01/07/23 documented as of this encounter
--- OUTSIDE RECORDS SUMMARY | 2024-09-17 10:36 | XMS_ITS | Encounter Summary ---
Author Organization [facility] Healthcare Address [address] [place] [address] Care Team Providers Care Alodize Machine Helper Name Role Phone Rony Whitney MD Primary Care Provider [phone] Encounter Details Date Type Department Care Team (Late st Contact Info) Description 09/16/2024 Telephone [facility] [address] [place], [place] [id number] La Nena Forman, [facility] Social History Tobacco Use Types Packs/Day Years Used Date Smoking Tobacco: Former Cigarettes 3 40 Smokeless Tobacco: Never [facility] Utilities Answer Date Recorded In the past 12 months has e electric, gas, oil, or water company threatened to shut off services in your home? No 01/08/2023 Social Connection and Isolation Panel [NHANES] A nswer Date Recorded Frequency of Communication with Friends and Fami ly Not on file 01/08/2023 Frequency of Social Gatherings with Friends and Family Not on file 01/08/2023 Attends Scientology Services Not on file 01/08 Active Member [...] place to sleep or slept in a care home (including now)? No 01/08/2023 Personal Safety Answer Date Recorded Have you ever been in or are you currently in a harmful physical or emotional relationship or is someone making you feel afraid or unsafe? 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 She would like the order sent to her attention to fax # [phone]. * Telephone Encounter - Flo Carrasco MD - 09/16/2024 3:20 PM CDT Okay for an auto CPAP with a range of 5-20 cm water pressure * Telephone Encounter - La Nena Forman RPSGT - 09/16/2024 2:23 PM CDT Spoke with daughter , Maggie, who is POA. Home sleep Test AHI- 74.9 (3%) and (4%) Lowest O2 sat- 74 %, 17.9 min overall with O2 sat less than 90%. Dr. Carrasco ordered CPAP titration study. Dr. Carrasco, Speaking with daughter she has expressed difficulty with scheduling an in lab CPAP titration study.Patient is in a Nursing Care Facility in [place]. They do not have transportation to bring patientat arrival time for sleep study. Daughter would have to rent a van. Patient is wheelchair dependent. Would you be ok with ordering Auto CPAP for patient? Thank you documented in this encounter Plan of Treatment Not on file documented as of this encounter Visit Diagnoses Not on filedocumented in this encounter Care Teams Alodize Machine Helper Relationship Specialty Start Date End Date Rony Whitney MD [address] [address] PCP - General Family Medicine 01/07/23 documented as of this encounter
--- OUTSIDE RECORDS SUMMARY | 2024-09-17 10:36 | XMS_ITS | Encounter Summary ---
Author Organization [facility] Address [address] [place] [id number] Care Team Providers [employer] Worker Name Role Phone Kenny Davis DO Primary Care Provider [phone] Encounter Details Date Type Department Care Team (Latest Contact Info) Description 09/15/2024 6:45 AM CDT - 09/15/2024 11:59 PM CDT Hospital Encounter [facility] [address] [place] [address] Kenny Davis DO [address] [place] [id number] Discharge Disposition: Home or Self Care (Routine Discharge) Social History Tobacco Use Types Packs/Day Years Used Date Smoking Tobacco: Never Assessed Comments Unknown Sex and Gender Information Value Date Recorded Sex Assigned at Female 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 aspirin EC 81 MG tablet Take 1 tablet (81 mg total) by mouth daily. bisacodyl (DULCOLAX) [address] 1 suppository (10 mg total) rectally daily as needed for Constipation. cetirizine (ZYRTEC) 10 MG tablet Take 1 tablet (10 mg total) by mouth daily. Cranberry 400 MG Tab Take 450 mg by mouth 2 (two) times daily. escitalopram (LEXAPRO) 20 MG tablet Take 1 tablet (20 mg total) by mouth daily. 08/25/2024 guaiFENesin 400 MG Tab Take 400 mg by mouth 2 (two) times daily as needed. ibandronate (BONIVA) 150 MG tablet Take 1 tablet (150 mg total) by mouth every 30 (thirty) days. ipratropium-albut ashish (DUONEB) 0.5-2.5 (3) MG/3ML Solution Take 3 mLs by nebulization every 4 (four) hours as needed. loperamide (IMODIUM A-D) 2 MG tablet Take 1 tablet (2 mg total) by mouth 2 (two) times daily as needed for Diarrhea. losartan (COZAAR) 50 MG tablet Take 12.5 mg by mouth daily. 12/03/2016 magnesium hydroxide (MILK OF MAGNESIA) 400 MG/5ML suspension Take 30 mLs by mouth daily as needed for Constipation. magnesium oxide (MAG-OX) 250 MG tablet Take 1 tablet (250 mg total) by mouth daily. metFORMIN ER (GLUCOPHAGE-XR) 500 MG 24 hr tablet Take 1 tablet (500 mg total) by mouth 2 (two) times daily. metoprolol succinate ER (TOPROL-XL) 25 MG 24 hr tablet Take 1 tablet (25 mg total) by mouth daily. ondansetron (ZOFRAN) 4 MG tablet Take 1 tablet (4 mg total) by mouth every 6 (six) hours as needed for Nausea. potassium chloride CR (KLOR-CON M) 20 MEQ tablet Take 1 tablet (20 mEq total) by mouth daily. 08/13/2024 rosuvastatin (CRESTOR) 40 MG tablet Take 1 tablet (40 mg total) by mouth nightly at bedtime. at bedtime. 08/04/2024 saccharomyces boulardii (FLORASTOR) 250 MG capsule Take 1 capsule (250 mg total) by mouth 2 (two) times daily. saline enema adult (FLEET) 7-19 GM/118ML Enema enema Place 133 mLs (1 enema total) rectally daily as needed for Constipation. Senna (SENOKOT) 8.6 MG tablet Take 1 tablet (8.6 mg total) by mouth daily. ticagrelor (BRILINTA) 90 mg tablet Take 1 tablet (90 mg total) by mouth 2 (two) times daily. 08/30/2024 traZODone (DESYREL) 100 MG tablet Take 1 tablet (100 mg total) by mouth nightly at bedtime. documented as of this encounter Plan of Treatment Not on file documented as of this encounter Procedures Procedure Name Priority Date/Time Associated Diagnosis Comments COMPREHENSIVE METABOLIC PANEL Routine 09/15/2024 5:50 AM CDT Type 2 diabetes mellitus with mononeuropathy (CMS/HCC HHS/HCC) Chronic obstructive asthma with exacerbation (CMS/HCC HHS/HCC) Hyperlipidemia CBC W/DIFF AUTOMATED Routine 09/15/2024 5:50 AM CDT Type 2 diabetes mellitus with mononeuropathy (CMS/HCC HHS/HCC) Chronic obstructive asthma with exacerbation (CMS/HCC HHS/HCC) Hyperlipidemia AMMONIA Routine 09/15/2024 5:50 AM CDT Type 2 diabetes mellitus with mononeuropathy (CMS/HCC HHS/HCC) Chronic obstructive asthma with exacerbation (CMS/HCC HHS/HCC) Hyperlipidemia ACETAMINOPHEN Routine 09/15/2024 5:50 AM CDT Type 2 diabetes mellitus with mononeuropathy (CMS/HCC HHS/HCC) Chronic obstructive asthma with exacerbation (CMS/HCC HHS/HCC) Hyperlipidemia documented in this encounter Results * (ABNORMAL) COMPREHENSIVE METABOLIC PANEL (09/15/2024 5:50 AM CDT) [facility] Signature GLUCOSE 217(H) 70 - 99 MG/DL 09/15/2024 7:36 AM CDT [facility] BUN 13 7 - 18 MG/DL 09/15/2024 7:36 AM CDT [facility] CREATININE S/P/B 0.74 0.50 - 1.20 MG/DL 09/15/2024 7:36 AM CDT [facility] SODIUM S/P/B 138 136 - 145 MMOL/L 09/15/2024 7:36 AM CDT [facility] POTASSIUM S/P/B 4.3 3.5 - 5.1 MMOL/L 09/15/2024 7:36 AM CDT [facility] CHLORIDE S/P/B 102 100 - 108 MMOL/L 09/15/2024 7:36 AM CDT [facility] CO2 29.8 21.0 - 32.0 MMOL/L 09/15/2024 7:36 AM CDT [facility] CALCIUM S/P/B 8.2(L) 8.5 - 10.1 MG/DL 09/15/2024 7:36 AM CDT [facility] BILIRUBIN TOTAL S/P/B 0.3 0.2 - 1.2 MG/DL 09/15/2024 7:36 AM CDT [facility] Comment: THIS ASSAY IS NOT RECOMMENDED FOR PATIENTS UNDERGOING TREATMENT WITH ELTROMBOPAG DUE TO THE POTENTIAL FOR FALSELY ELEVATED RESULTS. TOTAL PROTEIN S/P/B 6.7 6.4 - 8.2 G/DL 09/15/2024 7:36 AM CDT [facility] ALBUMIN S/P/B 3.0(L) 3.4 - 5.0 G/DL 09/15/2024 7:36 AM CDT [facility] AST 35 15 - 37 U/L 09/15/2024 7:36 AM CDT [facility] ALT 56(H) 14 - 55 U/L 09/15/2024 7:36 AM CDT [facility] ALKALINE PHOSPHATASE S/P/B 111 50 - 136 U/L 09/15/2024 7:36 AM CDT [facility] ANION GAP 6.2 5.0 - 15.0 MMOL/L 09/15/2024 7:36 AM CDT [facility] BUN CREATININE RATIO 17.6 6 - 26 09/15/2024 7:36 AM CDT [facility] A/G RATIO 0.8(L) 1.0 - 2.5 RATIO 09/15/2024 7:36 AM CDT [facility] GFR ESTIMATE 83(L) >90 ML/MIN/1.7 3 M2 09/15/2024 7:36 AM CDT [facility] Comment: NOTE: eGFR is not calculated for patients <18 years of age. This is an estimated GFR calculation using the new CKD EPI creatinine equation without race and so does not require a correction factor for race. This estimated GFR should not be used for calculating drug doses. 09/15/2024 5:50 AM CDT Kenny Davis DO LABORATORY Final Result [facility] [address] [place] [address], * (ABNORMAL) CBC W/DIFF AUTOMATED (09/15/2024 5:50 AM CDT) WBC 6.00 4.50 - 11.00 x10'3/uL 09/15/2024 7:27 AM CDT [facility] RBC 4.04 4.00 - 5.20 x10'6/uL 09/15/2024 7:27 AM CDT [facility] HGB 11.1(L) 12.0 - 16.0 G/DL 09/15/2024 7:27 AM CDT [facility] HCT 35.5(L) 38.0 - 48.0 % 09/15/2024 7:27 AM CDT [facility] MCV 87.9 80.0 - 100.0 FL 09/15/2024 7:27 AM CDT [facility] MCH 27.5 26.0 - 34.0 PG 09/15/2024 7:27 AM CDT [facility] MCHC 31.3 31.0 - 37.0 G/DL 09/15/2024 7:27 AM CDT [facility] RDW 14.7 11.6 - 14.8 % 09/15/2024 7:27 AM CDT [facility] PLT 228 130 - 400 x10'3/uL 09/15/2024 7:27 AM CDT [facility] MPV 10.9 7.0 - 12.0 FL 09/15/2024 7:27 AM CDT [facility] CBC COMMENT AUTOMATED RBC MORPHOLOGY AND PLATELET EVALUATION NORMAL 09/15/2024 7:27 AM CDT [facility] NEUTROPHILS % 61.0 40.0 - 74.0 % 09/15/2024 7:27 AM CDT [facility] LYMPHOCYTES % 24.0 14.0 - 46.0 % 09/15/2024 7:27 AM CDT [facility] MONOCYTES % 9.8 4.0 - 13.0 % 09/15/2024 7:27 AM CDT [facility] EOSINOPHILS 3.7 0.0 - 7.0 % 09/15/2024 7:27 AM CDT [facility] BASOPHILS 0.8 0.0 - 3.0 % 09/15/2024 7:27 AM CDT [facility] IMMATURE GRANS % 0.7(H) 0.0 - 0.43 % 09/15/2024 7:27 AM CDT [facility] NRBC % 0.0 % 09/15/2024 7:27 AM CDT [facility] ABS. NEUTROPHILS TOTAL 3.66 1.69 - 7.81 x10'3/uL 09/15/2024 7:27 AM CDT [facility] ABS. LYMPHOCYTES 1.44 0.21 - 5.42 x10'3/uL 09/15/2024 7:27 AM CDT [facility] ABS. MONOCYTES 0.59 0.04 - 1.37 x10'3/uL 09/15/2024 7:27 AM CDT [facility] ABS. EOSINOPHILS 0.22 0.00 - 0.68 x10'3/uL 09/15/2024 7:27 AM CDT [facility] ABS. BASOPHILS 0.05 0.00 - 0.08 x10'3/uL 09/15/2024 7:27 AM CDT [facility] ABS. IMMATURE GRANULOCYTES 0.04 0.00 - 0.06 x10'3/uL 09/15/2024 7:27 AM CDT [facility] ABS. NUCLEATED RBC'S 0.00 0.00 - 0.01 x10'3/uL 09/15/2024 7:27 AM CDT [facility] 09/15/2024 5:50 AM CDT us Kenny Davis DO LABORATORY Final Result Performing Organization Address [facility] Co de Phone Number [facility] [address] [place] [address], * (ABNORMAL) ACETAMINOPHEN (09/15/2024 5:50 AM CDT) ACETAMINOPHEN S/P/B 0(L) 10 - 30 MCG/ML 09/15/2024 7:36 AM CDT [facility] 09/15/2024 5:50 AM CDT us Kenny Davis DO LABORATORY Final Result Performing Organization Address [facility] de Phone Number [facility] [address] [place] [address], * AMMONIA (09/15/2024 5:50 AM CDT) AMMONIA <17 11.0 - 32.0 UMOL/L 09/15/2024 7:43 AM CDT [facility] 09/15/2024 5:50 AM CDT us Kenny Davis DO LABORATORY Final Result Performing Organization Address [facility] Co de Phone Number [facility] [address] [place] [address], documented in this encounter Visit Diagnoses Diagnosis Type 2 diabetes mellitus with mononeuropathy ([facility]) Type II or unspecified type diabetes mellitus with neurological manifestations, not stated as uncontrolled Chronic obstructive asthma with exacerbation ([facility]) Chronic obstructive asthma with exacerbation Hyperlipidemia Other and unspecified hyperlipidemia documented in this encounter Additional Health Concerns Infection Onset Date Last Indicated Resolved Time 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
--- OUTSIDE RECORDS SUMMARY | 2024-09-17 10:36 | XMS_ITS | Referral Summary ---
Author Organization [facility] Address [address] [place] [address] Care Team Providers Care Wrapper Opener Name Role Phone Rony Whitney MD Primary Care Provider [phone] Encounters Date Type Department Care Team Description 09/16/2024 Telephone [facility] Sleep Lab [address] [place] [address] La Nena Forman [facility] 09/16/2024 Orders Only [facility] Pulmonary [address] [phone] Flo Carrasco MD ANITA (obstructive sleep apnea) (Primary Dx) 09/15/2024 12:52 PM CDT - 09/15/2024 11:59 PM CDT Hospital Encounter [facility] Sleep Lab [address] [place] [address] Snoring; Hypersomnia, unspecified Discharge Disposition: Discharge to home or self care 07/19/2024 10:30 AM CDT Office Visit [facility] Pulmonary [address] [phone] Flo Carrasco MD Snoring (Primary Dx); ANITA (obstructive sleep apnea); Hypersomnia, unspecified 07/01/2024 Results Follow-Up [facility] [address] [place] [phone] Carola Gómez MA Lipid panel, Thyroid Function [place], Pro B-type natriuretic peptide, Additional followed-up results: 6 06/30/2024 Orders Only [facility] [address] [place] [phone] Jitendra Corral MD Type 2 diabetes mellitus with diabetic peripheral angiopathy without gangrene, without long-term current use of insulin (HCC) (Primary Dx) 06/30/2024 Telephone [facility] [address] [place] [phone] Jitendra Corral MD 06/30/2024 10:50 AM CDT Lab [facility] Lab [address] [place] [phone] Coronary artery disease of [place] artery of [place] heart with stable angina pectoris; Primary hypertension; Type 2 diabetes mellitus with diabetic peripheral angiopathy without gangrene, without long-term current use of insulin (HCC); BJORN (acute kidney injury); Hx of AKA (above knee amputation), right (HCC) 06/30/2024 9:45 AM CDT Office Visit [facility] [address] [place] [phone] Jitendra Corral MD Coronary artery disease of [place] artery of [place] heart with stable angina pectoris (Primary Dx); Primary hypertension; Type 2 diabetes mellitus with diabetic peripheral angiopathy without gangrene, without long-term current use of insulin (HCC); BJORN (acute kidney injury); Hx of AKA (above knee amputation), right (HCC) from Last 3 Months Allergies No known active allergies Medications escitalopram (LEXAPRO) 20 mg tablet Take 2 tablets (40 mg total) by mouth nightly 12/24/19 Active metFORMIN XR (GLUCOPHAGE XR) 500 mg [...] IN THE MORNING FOR 8 DOSES 07/01/19 25 Active mirtazapine (REMERON) 7.5 mg tablet TAKE 1 TABLET BY MOUTH AT BEDTIME FOR DEPRESSION 05/06/19 25 Active doxycycline hyclate 100 mg capsule GIVE 1 TABLET BY MOUTH TWO TIMES A DAY FOR INFECTION FOR 10 DAYS 05/01/19 25 Active cefTRIAXone (ROCEPHIN) 2 gram injection INJECT 2GM INTRAMUSCULARLY IN THE MORNING FOR 8 DOSES (DILUTE W/4.2ML OF LIDOCAINE) 07/01/19 25 Active Active Problems Problem Noted Date Diagnosed Date Snoring 07/19/2024 Assessment & Plan (07/19/2024 10:19 AM CDT): The patient presents with snoring and daytime hypersomnia. Per her request, I have ordered a home sleep test and she will follow up here in 4 months. Mixed hyperlipidemia 07/05/2023 Moderate aortic regurgitation 07/05/2023 CAD (coronary artery disease), [place] coronary a rtery 06/05/2023 Type 2 diabetes mellitus wit h diabetic peripheral angiopathy without gangrene, without long-term current use of insulin 05/16/2023 Assessment & Plan (05/16/2023 10:37 AM FLOCCULATOR OPERATOR): Impression: Chronic with good glucose control. Plan: Continue glipizide and metformin. Primary hypertension 05/16/2023 Assessment & Plan (05/16/2023 10:38 AM FLOCCULATOR OPERATOR): Impression: Chronic and stable. Plan: Continue metoprolol Hx of AKA (above knee amputation), right 023 Assessment & Plan (05/16/2023 10:37 AM FLOCCULATOR OPERATOR): Impression: Right ktdqk-fyj-bczk amputation site is healed. Plan: Continue recommendations as per Nick for prosthesis. -patient to follow-up in 3 months for re-evaluation. Assessment & Plan (03/18/2023 9:04 AM FLOCCULATOR OPERATOR): Impression: Patient is status post right xpndq-hdb-pipb amputation. Surgical dehiscence occurred during patient's last [...] prosthesis evaluation and fitting for a right vrbpz-rjz-xjno prothesis. Patient has no complaints or concerns at this time. I have examined the patient and recommend a right dmsfz-ska-esvq prosthetic. The patient was a level K3 ambulator prior to his amputation. The patient is capable and has expressed a desire to live independently and do normal director global development and activities of daily living. Patient is [...] nearly healed ulceration sites. -continue working with Nick for prosthetic evaluation. -recommend compression therapy to right bnife-ltw-fwue amputation site for edema control. -patient to follow-up in 3 months for re-evaluation. Assessment & Plan (02/11/2023 11:06 AM FLOCCULATOR OPERATOR): Impression: Patient is status post right nvits-dje-yslm amputation. Postsurgical edema is noted to residual right lower extremity. Surgical incision is well approximated, healing with janette intact. No concern for infection. Plan: Gaylord removed. Medical assistance brought it to my [...] 01/21/2023 Assessment & Plan (05/16/2023 10:36 AM FLOCCULATOR OPERATOR): Impression: Patient denies any symptoms of claudication, [...] syndrome/Stemi Penetrating wound of right foot 01/07/2023 Social History Tobacco Use Types Packs/Day Years Used Date Smoking Tobacco: Former Cigarettes 3 40 Smokeless Tobacco: Never Tobacco Cessation:Counseling Given: Not Answered [facility] Utilities Answer Date Recorded In the past 12 months has [place], oil, or water CallmyName threatened to shut off services in your home? No 01/08/2023 Social Connection and Isolation Panel [NHANES] A nswer Date Recorded Frequency of Communication with Friends and Fami ly Not on file 01/08/2023 Frequency of Social Gatherings with Friends and Family Not on file 01/08/2023 Attends Islam Services Not on file 01/08 Active Member of Clubs or Organizations Not on f ile 01/08/2023 Attends Club or Organization Meetings Not on sudnar e 01/08/2023 Are you , , di [...] place to sleep or slept in a penitentiary (including now)? No 01/08/2023 Personal Safety Answer Date Recorded Have you ever been in or are you currently in a harmful physical or emotional relationship or is someone making you feel afraid or unsafe? Denies 06/05/2023 Comments No Sex and Gender Information Value Date Recorded Sex Assigned at Not on file Legal Sex Female 5:39 PM FLOCCULATOR OPERATOR Gender Identity Female 01/16/2023 6:07 AM FLOCCULATOR OPERATOR Sexual Orientation Not on file Last Filed Vital Signs Vital Sign Reading [...] 06/20/2023 12:53 PM CDT Plan of Treatment Not on file Medical Devices Implanted Type Area Particle Board Supervisor Device Identifier Shelf Expiration Date Model / Serial / Lot Medtronic Card Vasc Surgery 2.50 X 22mm [employer]rik [employer] Rx Coronary Stent [id number] - [id number] Implanted:Qty: 1 on 01/07/2023 by [facility] Med[employer]onic Card Vasc Surgery 08/15/2025 [id number] / / [id number] Medtronic Card Vasc Surgery 2.75 X 18mm Amrik Cocoa Rx Coronary Stent [id number] - [id number] Implanted:Qty: 1 on 06/05/2023 by Jitendra Corral MD at [facility] Medtronic Card Vasc Surgery 12/31/2025 [id number] / / [id number] Medtronic Card Vasc Surgery 3.5 X 15mm [place] [employer] Rx Coronary Stent [id number] - [id number] Implanted:Qty: 1 on 06/05/2023 by Jitendra Corral MD at [facility] 04/30/2025 [id number] / / [id number] Procedures Procedure Name Priority Date/Time Associated Diagnosis Comments PORTABLE/HOME SLEEP STUDY Routine 09/15/2024 12:52 PM CDT Snoring Hypersomnia, unspecified HEMOGLOBIN A1C Routine 06/30/2024 11:03 AM CDT Coronary artery disease of [place] artery of [place] heart with stable angina pectoris Primary hypertension Type 2 diabetes mellitus with diabetic peripheral angiopathy without gangrene, without long-term current use of insulin (HCC) BJORN (acute kidney injury) Hx of AKA (above knee amputation), right (HCC) EGFR Routine 06/30/2024 11:03 AM CDT Coronary artery disease of [place] artery of [place] heart with stable angina pectoris Primary hypertension Type 2 diabetes mellitus with diabetic peripheral angiopathy without gangrene, without long-term current use of insulin (HCC) BJORN (acute kidney injury) Hx of AKA (above knee amputation), right (HCC) DIFFERENTIAL AUTO Routine 06/30/2024 11: 03 AM CDT Coronary artery disease of [place] artery of [place] heart with stable angina pectoris Primary hypertension Type 2 diabetes mellitus with diabetic peripheral angiopathy without gangrene, without long-term current use of insulin (HCC) BJORN (acute kidney injury) Hx of AKA (above knee amputation), right (HCC) COMPREHENSIVE METABOLIC PANEL Routine 06/30/2024 11:03 AM CDT Coronary artery disease of [place] artery of [place] heart with stable angina pectoris Primary hypertension Type 2 diabetes mellitus with diabetic peripheral angiopathy without gangrene, without long-term current use of insulin (HCC) BJORN (acute kidney injury) Hx of AKA (above knee amputation), right (HCC) CBC WITH AUTO DIFFERENTIAL Routine 06/30/2024 11:03 AM CDT Coronary artery disease of [place] artery of [place] heart with stable angina pectoris Primary hypertension Type 2 diabetes mellitus with diabetic peripheral angiopathy without gangrene, without long-term current use of insulin (HCC) BJORN (acute kidney injury) Hx of AKA (above knee amputation), right (HCC) MAGNESIUM Routine 06/30/2024 11:03 AM CDT Coronary artery disease of [place] artery of [place] heart with stable angina pectoris Primary hypertension Type 2 diabetes mellitus with diabetic peripheral angiopathy without gangrene, without long-term current use of insulin (HCC) BJORN (acute kidney injury) Hx of AKA (above knee amputation), right (HCC) PRO B-TYPE NATRIURETIC PEPTIDE Routine 06/30/2024 11:03 AM CDT Coronary artery disease of [place] artery of [place] heart with stable angina pectoris Primary hypertension Type 2 diabetes mellitus with diabetic peripheral angiopathy without gangrene, without long-term current use of insulin (HCC) BJORN (acute kidney injury) Hx of AKA (above knee amputation), right (HCC) THYROID FUNCTION CASCADE Routine 06/30/2024 11:03 AM CDT Coronary artery disease of [place] artery of [place] heart with stable angina pectoris Primary hypertension Type 2 diabetes mellitus with diabetic peripheral angiopathy without gangrene, without long-term current use of insulin (HCC) BJORN (acute kidney injury) Hx of AKA (above knee amputation), right (HCC) LIPID PANEL Routine 06/30/2024 11:03 AM CDT Coronary artery disease of [place] artery of [place] heart with stable angina pectoris Primary hypertension Type 2 diabetes mellitus with diabetic peripheral angiopathy without gangrene, without long-term current use of insulin (HCC) BJORN (acute kidney injury) Hx of AKA (above knee amputation), right (HCC) ECG 12-LEAD Routine 06/30/2024 10:08 AM CDT Coronary artery disease of [place] artery of [place] heart with stable angina pectoris HEPATITIS PANEL, ACUTE Routine 4:28 PM FLOCCULATOR OPERATOR from Last 3 Months or Most Recently Relevant to Health Maintenance Results * Portable/Home Sleep Study (09/15/2024 12:52 PM CDT) us Flo Carrasco MD SLEEP CENTER ORDERABLES F inal Result [facility] [address] [place] [address] * eGFR (06/30/2024 11:03 AM CDT) eGFR [...] of Race in Diagnosing Kidney Disease, JASN 2020). The CKD-EPI equation should not be used for patients with unstable renal function and has not been validated in children and those over 70. Current interpretive data was last reviewed 2021. Testing performed by: [facility], [address] [place] [address]., [address] Blood 06/30/2024 11:0 3 AM CDT 06/30/2024 11:08 AM CDT us Jitendra Corral MD LAB BLOOD ORDERABL ES Final Result Performing Organization Address City/[facility]/ZIP Co de Phone Number DAMIAN [address] Department [place] [address] * Differential, auto (06/30/2024 11:03 AM CDT) Neutrophil abs 4.84 1.50 - 6.50 K/cumm Comment:Testing performed by : [address] [address] Imm gran abs 0.01 0.00 - 0.10 K/cumm [facility] Comment:Testing performed by : [address] [address] Lymphocyte abs 1.69 0.80 - 3.30 K/cumm [facility] Comment:Testing performed by : [address] [address] Monocyte abs 0.64 0.20 - 0.80 K/cumm [facility] Comment:Testing performed by : [address], [place]., [address] Eosinophil abs 0.24 0.00 - 0.50 K/cumm [facility] Comment:Testing performed by : [address] [address] Basophil abs 0.10 0.00 - 0.10 K/cumm [facility] Comment:Testing performed by : [address] [address] Neutrophil pct 64.4 % [facility] Comment: Interpretive Data Percent cell count reference ranges are not reported, since discordance with absolute values may lead to misinterpretation of CBC data. Current Interpretive Data was last revised on 2017. Testing performed by: [address] [address] Imm gran pct 0.1 % [facility] Comment: Interpretive Data Percent cell count reference ranges are not reported, since discordance with absolute values may lead to misinterpretation of CBC data. Current Interpretive Data was last revised on 2017. Testing performed by: [address] [address] Lymphocyte pct 22.5 % [facility] Comment: Interpretive Data Percent cell count reference ranges are not reported, since discordance with absolute values may lead to misinterpretation of CBC data. Current Interpretive Data was last revised on 2017. Testing performed by: [address] [address] Monocyte pct 8.5 % C[facility]ER Comment: Interpretive Data Percent cell count reference ranges are not reported, since discordance with absolute values may lead to misinterpretation of CBC data. Current Interpretive Data was last revised on 2017. Testing performed by: [address] [address] Eosinophil pct 3.2 % DAMIAN Comment: Interpretive Data Percent cell count reference ranges are not reported, since discordance with absolute values may lead to misinterpretation of CBC data. Current Interpretive Data was last revised on 2017. Testing performed by: [address] [address] Basophil pct 1.3 % DAMIAN Comment: Interpretive Data Percent cell count reference ranges are not reported, since discordance with absolute values may lead to misinterpretation of CBC data. Current Interpretive Data was last revised on 2017. Testing performed by: [address] [address] Blood 06/30/2024 11:0 3 AM CDT 06/30/2024 11:09 AM CDT Jitendra Corral MD LAB BLOOD ORDERABL ES Final Result [facility] [address] [facility] Department [place] [address] * Pro B-type natriuretic peptide (06/30/2024 11:03 [...] Last Revised Date: 2017. Testing performed by: [address] [address] Blood 06/30/2024 11:0 3 AM CDT 06/30/2024 11:08 AM CDT Jitendra Corral MD LAB BLOOD ORDERABL ES Final Result Performing Organization Address [facility]/RUST de Phone Number [address] [facility] [place] [address] * Thyroid Function [place] (06/30/2024 11:03 AM CDT) Pathologist [facility] TSH 1.03 0.30 - 4.20 mcIUnit/mL Comment:Testing performed by : [address] [address] Blood 06/30/2024 11:0 3 AM CDT 06/30/2024 11:08 AM CDT us Jitendra Corral MD LAB BLOOD ORDERABL ES Final Result Performing Organization Address [facility] Co de Phone Number [address] [facility] [place] [address] * (ABNORMAL) CBC with auto differential (06/30/2024 11:03 AM CDT) Pathologist [facility] WBC 7.52 3.80 - 9.90 K/cumm Comment:Testing performed by : [address], [address] Hgb 12.5 11.9 - 15.5 g/dL DAMIAN Comment:Testing performed by : [address], [address] Hct 41.9 35.6 - 45.5 % DAMIAN Comment:Testing performed by : [address], [address] Plt 279 150 - 400 K/cumm DAMIAN Comment:Testing performed by : [address], [address] MPV 10.3 9.1 - 12.3 fL DAMIAN Comment:Testing performed by : [address], [address] RBC 4.62 3.90 - 5.20 M/cumm DAMIAN Comment:Testing performed by : [address], [address] MCV 90.7 81.3 - 96.4 fL DAMIAN Comment:Testing performed by : [address], [address] MCH 27.1 27.1 - 33.3 pg CERPEG Comment:Testing performed by : [address] [address] MCHC 29.8(L) 32.3 - 35.7 g/dL DAMIAN Comment:Testing performed by : [address], [address] RDW CV 15.3(H) 11.1 - 14.9 % DAMIAN Comment:Testing performed by : [address], [address] RDW SD 50.4(H) 35.7 - 48.1 fL DAMIAN Comment:Testing performed by : [address], [address] NRBC abs 0.00 0.00 - 0.01 K/cumm DAMIAN Comment:Testing performed by : [address], [address] Blood 06/30/2024 11:0 3 AM CDT 06/30/2024 11:09 AM CDT us Jitendra Corral MD LAB BLOOD ORDERABL ES Final Result Performing Organization Address [facility] Co de Phone Number [address] [address] * Magnesium (06/30/2024 11:03 AM CDT) Pathologist [facility] Magnesium 2.1 1.4 - 2.5 mg/dL Comment:Testing performed by : [address] [address] Blood 06/30/2024 11:0 3 AM CDT 06/30/2024 11:08 AM CDT us Jitendra Corral MD LAB BLOOD ORDERABL ES Final Result Performing Organization Address [facility]/RUST de Phone Number [address] [address] * (ABNORMAL) Hemoglobin A1c (06/30/2024 11:03 AM CDT) [facility] Hgb A1C 8.5(H) 4.0 - 5.6 % Comment:Testing performed by : [address] [address] Estimated Average Glucose 197 mg/dL DAMIAN Comment: The ADA recommends reporting an estimated Average Glucose (eAG) with all Hemoglobin A1c results using the equation derived from a study of 507 normal and diabetic adults. Minority populations were underrepresented and children were not included. (Diabetes Care 31:5581-9432, 2008). The eAG is not equivalent to a fasting glucose. Testing performed by: [address] [address] Blood 06/30/2024 11:0 3 AM CDT 06/30/2024 11:09 AM CDT us Jitendra Corral MD LAB BLOOD ORDERABL ES Final Result DAMIAN [address] [facility] Department [place] [address] * (ABNORMAL) Lipid panel (06/30/2024 11:03 AM [...] last revised on 2017. Testing performed by: [address] [address] Triglycerides 152(H) <=149 mg/dL DAMIAN Comment: Interpretive [...] last revised on 2017. Testing performed by: [address] [address] HDL 50 >=40 mg/dL DAMIAN Comment: Interpretive [...] last revised on 2017. Testing performed by: [facility], [address] [place] [address]., [address] LDL, calculated 71 <=129 mg/dL DAMIAN Comment: Interpretive Data Ages < or = 19 years Acceptable: <110 mg/dL Borderline high: 110-129 mg/dL High: >or= 130 mg/dL Ages > or = 20 years Optimal: <100 mg/dL Near optimal: 100-129 mg/dL Borderline high: 130-159 mg/dL High: >160 mg/dL Calculated using the Praveen LDL-C estimating equation. This equation was implemented [...] last revised on 2023. Testing performed by: [address] [address] Non-HDL Cholesterol 97 mg/dL DAMIAN Comment: Interpretive [...] last revised on 2017. Testing performed by: [address] [address] Chol/HDL ratio 3 DAMIAN Comment:Testing performed by : [address] [address] Blood 06/30/2024 11:0 3 AM CDT 06/30/2024 11:08 AM CDT Narrative DAMIAN - 06/30/2024 11:44 AM CDT Has the patient been fasting for 8 hours or more?->No Has the patient fasted?->No Jitendra Corral MD LAB BLOOD ORDERABL ES Final Result DAMIAN [address] [facility] Department of Laboratories [place], [place] [id number] * (ABNORMAL) Comprehensive metabolic panel (06/30/2024 11:03 AM CDT) Sodium 139 135 - 145 mmol/L Comment:Testing performed by : [address] [address] Potassium, pl 4.5 3.3 - 4.9 mmol/L DAMIAN Comment:Testing performed by : [address] [address] Chloride 101 97 - 110 mmol/L DAMIAN Comment:Testing performed by : [address] [address] CO2 26 22 - 32 mmol/L DAMIAN Comment:Testing performed by : [address] [address] Anion gap 12 2 - 15 mmol/L DAMIAN Comment:Testing performed by : [address] [address] BUN 18 6 - 25 mg/dL DAMIAN Comment:Testing performed by : [address] [address] Creatinine 0.80 0.60 - 1.10 mg/dL DAMIAN Comment:Testing performed by : [address] [address] Glucose 206(H) 70 - 199 mg/dL DAMIAN [...] classification and Diagnosis of Diabetes Diabetes Care 2021; 46: S19-S40. Current interpretive data was last revised 2022. Testing performed by: [address] [address] Calcium 9.3 8.5 - 10.3 mg/dL DAMIAN Comment:Testing performed by : [address] [address] Bilirubin, total 0.2 0.1 - 1.2 mg/dL DAMIAN Comment:Testing performed by : [address] [address] Protein, pl 7.9 6.5 - 8.5 g/dL DAMIAN Comment:Testing performed by : [address] [address] Albumin 4.0 3.5 - 5.0 g/dL [facility] Comment:Testing performed by : [address] [address] Alk phos 105 40 - 130 Units/L DAMIAN Comment:Testing performed by : [address] [address] ALT 15 7 - 45 Units/L DAMIAN Comment:Testing performed by : [address] [address] AST 16 10 - 45 Units/L DAMIAN Comment:Testing performed by : [address] [address] Blood 06/30/2024 11:0 3 AM CDT 06/30/2024 11:08 AM CDT Narrative DAMIAN - 06/30/2024 11:44 AM CDT Has the patient fasted?->No Jitendra Corral MD LAB BLOOD ORDERABL ES Final Result Performing Organization Address City/[facility]/ZIP Co de Phone Number DAMIAN [address] [facility] [place] [address] * ECG 12 lead (06/30/2024 10:08 AM CDT) Jitendra Corral MD ECG ORDERABLES Fi nal Result * Hepatitis panel, acute Blood (01/13/2023 4:28 PM FLOCCULATOR OPERATOR) Hep A IgM Nonreactive Nonreactive [facility] Comment: Interpretive Data: If Hep A IgM Ab is reported as Equivocal, a new sample should be drawn in two weeks for testing. Current interpretive data was last revised on 19. Hep B core IgM Nonreactive Nonreactive [facility] Comment: Interpretive Data If HepB Core IgM Ab is reported as Equivocal, a new sample should be drawn in two weeks for testing. Current interpretive data was last revised on 19. Hep C Ab Nonreactive Nonreactive [facility] Comment: Interpretive Data Nonreactive: Antibodies to HCV [...] last revised on 2019. HepBsAg Nonreactive Nonreactive [facility] Blood 01/13/2023 4:28 PM FLOCCULATOR OPERATOR 01/13/2023 4:31 PM FLOCCULATOR OPERATOR us Amrit Mccollum MD LAB MICROBIOLOGY - GENERAL ORDERABLES Final Result Performing Organization Address City/[facility]/ZIP Co de Phone Number DAMIAN [address] [facility] [place] [address] from Last 3 Months or Most Recently Relevant to Health Maintenance Insurance MEDICARE UHC MEDICARE ADVANTAGE [facility] MEDICARE Address: [address] [address] [place] [address] MEDICARE [facility] [place] Advance Directives For more information, please contact: [phone] * Full Code (Latest Code Status on [...] 11:45 PM 01/10/2023 1:05 PM Care Teams Wrapper Opener Relationship Specialty Start Date End Date Rony Whitney MD [address] [address] PCP - General Family Medicine 01/07/23
[2024-09-17 11:26] LABS: Estimated Glomerular Filt Rate > 60
== END 2024-09-17 10:32 | disposition home or self-care (01) ==
LOC: ANHIMG 10:32
PROVIDERS: PCP Internal Medicine; Visit Provider Nurse Practitioner Family
DX: N20.0 Calculus of kidney (principal); D35.02 Benign neoplasm of left adrenal gland; N83.202 Unspecified ovarian cyst, left side; I71.43 Infrarenal abdominal aortic aneurysm, without rupture
CPT/HCPCS: 74177; Q9967

== ENCOUNTER 2024-11-10 13:09 | Outpatient (CLI) | payer MEDICARE, MEDICAID, SELFPAY ==
--- OUTSIDE RECORDS SUMMARY | 2024-11-09 03:30 | XMS_ITS ---
Author Organization [facility] Address [address] [place] [id number] Care Team Providers Care Net Programmer Analyst Name Role Phone BRYAN WILSON Primary Care Provider [phone] Bonnie Moreland Unavailable [phone] Allergies Allergen (clinical drug ingredient) Drug/Non Drug Allergy documented on EMR Reaction Allergy Type Onset Date Status No Known Drug Allergy Unknown Drug Allergy Active REASON FOR VISIT ACC, acute for rash under armpits and tejinder groins Medications Medication SIG (Take, Route, Frequency, Duration) Notes Start Date End Date Status Milk of Magnesia 7.75 % Suspension 30 mL as needed Orally Once a day Active Metoprolol Succinate ER 25 MG Tablet Extended Release 24 Hour 0.5 tablet Orally Once a day Active metFORMIN HCl 500 MG Tablet 2 tablets with a meal Orally in the morning. Active Magnesium 400 MG Capsule 1 tablet Orally twice daily Active Ativan 0.5 MG Tablet 1 tablet Orally 3 t imes a day 11/05/2024 Active traZODone HCl 100 MG Tablet 1 tablet at bedtime Orally Once a day Active Ticagrelor 90 MG Tablet 1 tablet Orally Twice a day Active Rosuvastatin Calcium 40 MG Tablet 1 tablet Orally Once a day Active Potassium Chloride ER 20 MEQ Tablet Extended Release 1 tablet with food Orally Once a day Active Ondansetron HCl 4 MG Tablet 1 tablet as needed Orally every 6 hours Active ZyrTEC Allergy 10 MG Tablet 1 tablet as needed Orally Once a day Active Dulcolax 10 MG Suppository 1 suppository as needed Rectal Once a day Active Cranberry 450 MG Capsule 1 tablet Orally twice daily Active Aspirin Adult Low Dose 81 MG Tablet Delayed Release 1 tablet Orally Once a day Active Acetaminophen 325 MG Tablet 2 tablet as needed Orally every 4 hrs Active guaiFENesin 400 MG Tablet 1 tablet as ne eded Orally every 12 hours Active Fleet Enema - Enema Insert 1 application rectally every 24 hours as neededfor If no Bowel Movement for >3 days Rectal every 3 days. Active Escitalopram Oxalate 20 MG Tablet 1 tablet Orally Once a day Active Docusate Sodium 100 MG Capsule 1 capsule as needed Orally Once a day Active Diflucan 150 MG Tablet 1 tablet Orally d aily; Duration: 7 days 11/10/2024 11/17/2024 Active Ipratropium-Albuterol 0.5-2.5 (3) MG/3ML Solution 3 mL as needed Inhalation every 4 hrs Active Imodium A-D 2 MG Tablet 2 tablet as need ed Orally every 12 hours Active Ibandronate Sodium 150 MG Tablet 1 tablet 60 minutes before the first food, beverage or medicine of the day with plain water Orally Active Jardiance 25 MG Tablet 1 tablet Orally O nce a day Active Losartan Potassium 25 MG Tablet 0.5 tablet Orally Once a day Active Social History Tobacco Use: Social History Observation Description Date Details (start date - stop date) Former Smoker NA - NA Social History Tobacco Use: Social Info Question Answer Notes Tobacco Control (Standard) Tobacco use: Former smoker Vital Signs Temperature 98 degrees Fahrenheit 11/09/2024 Blood pressure systolic 127 mm Hg 11/10/19 25 Blood pressure diastolic 52 mm Hg 025 Heart Rate 79 /min 11/09/2024 Respiratory Rate 18 /min 11/09/2024 Weight 234.9 lbs 11/09/2024 Weight-kg 106.55 kg 11/09/2024 Encounters Encounter Location Date Provider Diagnosis [facility] [address] [place] [address] 11/09/2024 Aften Aniceto Dermatophytosis, unspecified B35.9 Assessments Encounter Date Diagnosis (ICD Code) Assessment Notes Treatment Notes Treatment Clinical Notes Section Notes 11/09/2024 Dermatophytosis, unspecified (ICD-10 - B35.9) Please start pt on diflucan 1 tab once daily Keep air clean and dry Leave area open to air as much as possible. can continue to use tolnaftate as needed 11/09/2024 Other REVIEWED HIPAA RIGHTS PRIVACY PRACTICES WITH PT/FAMILY/CAREG IVER COPY OF HIPAA RIGHTS PRIVACY PRACTICES GIVEN TO PT/FAMLY/CAREGI JUSTO Plan Of Treatment Medication Medication Name Sig Start Date Stop Date Notes Diflucan 150 MG Tablet 1 tablet Orally d aily; Duration: 7 days 11/10/2024 11/17/2024 Treatment Notes Assessment Notes Dermatophytosis, unspecified Please start pt on diflucan 1 tab once daily Keep air clean and dry Leave area open to air as much as possible. can continue to use tolnaftate as needed Other REVIEWED HIPAA RIGHTS PRIVACY PRACTICES WITH PT/FAMILY/CAREGIVER COPY OF HIPAA RIGHTS PRIVACY PRACTICES GIVEN TO PT/FAMLY/CAREGIVER Next Appt Details Follow Up: prn, Reason: Provider Name:Bonnie Mroeland , 11/16/2024 07:15:00 AM, [address] [place] [address], [id number], History and Physical Notes * HPI (History of Present Illness) Category Sub-Category Detail Notes Category Not es Transition of Care Nayeli Israel edge is a 79 yo F being seen at [facility] to do an acute complaint of fungal rash to left armpt and bilateral groin area. THis has been going on for a few days but continues to get worse. Patient is using calmospetine ointment and tolnaftate powder. She denies pain. She does report that it does itch and burn at times. 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 Pt is incontinent Progress Notes * Nayeli CURRY MDOB:06/1945 (79 yo F)Acc No.[id number]:11/09/2024 Patient: Nayeli Lacey Provider: RACHEL Capone :1945 A ge:79 Y S ex:Female Date:11/09/2024 Address:[address] [place] [address] Route [facility] , [place] [address] Pcp:BRYAN WILSON Subjective: * Chief Complaints: * A CC, acute for rash under armpits and tejinder groins * HPI: T ransition of Care: Nayeli Curry is a 79 yo F being seen at [facility] to do an acute complaint of fungal rash to left armpt and bilateral groin area. THis has been going on for a few days but continues to get worse. Patient is using calmospetine ointment and tolnaftate powder. She denies pain. She does report that it does itch and burn at times. * ROS: G eneral / Constitutional: Patient denies 1 0 point ROS negative unless noted. ? S kin: Patient complains of r laly. * Medical History: Personal history of (healed) traumatic fracture Acquired absence of right leg above knee Mixed hyperlipidemia Depression, unspecified Anxiety disorder, unspecified Essential (primary) hypertension Unspecified combined systolic (congestive) and diastolic (congestive) heart failure Peripheral vascular disease Primary osteoarthritis of right shoulder Primary osteoarthritis, left shoulder Chronic kidney disease, stage 3a * Surgical History: appendectomy cardiac catherization hysterectomy percutaneous transluminal coronary angioplasty * Family History: Pennie gallegos: diagnosed with Heart Disease. * Social History: T obacco Use: T obacco Control (Standard) T obacco use: F ormer smoker. * Medications: T akingJardiance 25 MG Tablet 1 tablet Orally Once a day Losartan Potassium 25 MG Tablet 0.5 tablet Orally Once a day Ipratropium-Albuterol 0.5-2.5 (3) MG/3ML Solution 3 mL as needed Inhalation every 4 hrs Imodium A-D 2 MG Tablet 2 tablet as needed Orally every 12 hours Ibandronate Sodium 150 MG Tablet 1 tablet 60 minutes before the first food, beverage or medicine of the day with plain water Orally guaiFENesin 400 MG Tablet 1 tablet as needed Orally every 12 hours Fleet Enema - Enema Insert 1 application rectally every 24 hours as neededfor If no Bowel Movement for >3 days Rectal every 3 days. Escitalopram Oxalate 20 MG Tablet 1 tablet Orally Once a day Docusate Sodium 100 MG Capsule 1 capsule as needed Orally Once a day Dulcolax 10 MG Suppository 1 suppository as needed Rectal Once a day Cranberry 450 MG Capsule 1 tablet Orally twice daily Aspirin Adult Low Dose 81 MG Tablet Delayed Release 1 tablet Orally Once a day Acetaminophen 325 MG Tablet 2 tablet as needed Orally every 4 hrs ZyrTEC Allergy 10 MG Tablet 1 tablet as needed Orally Once a day traZODone HCl 100 MG Tablet 1 tablet at bedtime Orally Once a day Ticagrelor 90 MG Tablet 1 tablet Orally Twice a day Rosuvastatin Calcium 40 MG Tablet 1 tablet Orally Once a day Potassium Chloride ER 20 MEQ Tablet Extended Release 1 tablet with food Orally Once a day Ondansetron HCl 4 MG Tablet 1 tablet as needed Orally every 6 hours Milk of Magnesia 7.75 % Suspension 30 mL as needed Orally Once a day Metoprolol Succinate ER 25 MG Tablet Extended Release 24 Hour 0.5 tablet Orally Once a day metFORMIN HCl 500 MG Tablet 2 tablets with a meal Orally in the morning. Magnesium 400 MG Capsule 1 tablet Orally twice daily Ativan 0.5 MG Tablet 1 tablet Orally 3 times a day Taking Jardiance 25 MG Tablet 1 tablet Orally Once a day Taking Losartan Potassium 25 MG Tablet 0.5 tablet Orally Once a day Taking Ipratropium-Albuterol 0.5-2.5 (3) MG/3ML Solution 3 mL as needed Inhalation every 4 hrs Taking Imodium A-D 2 MG Tablet 2 tablet as needed Orally every 12 hours Taking Ibandronate Sodium 150 MG Tablet 1 tablet 60 minutes before the first food, beverage or medicine of the day with plain water Orally Taking guaiFENesin 400 MG Tablet 1 tablet as needed Orally every 12 hours Taking Fleet Enema - Enema Insert 1 application rectally every 24 hours as neededfor If no Bowel Movement for >3 days Rectal every 3 days. Taking Escitalopram Oxalate 20 MG Tablet 1 tablet Orally Once a day Taking Docusate Sodium 100 MG Capsule 1 capsule as needed Orally Once a day Taking Dulcolax 10 MG Suppository 1 suppository as needed Rectal Once a day Taking Cranberry 450 MG Capsule 1 tablet Orally twice daily Taking Aspirin Adult Low Dose 81 MG Tablet Delayed Release 1 tablet Orally Once a day Taking Acetaminophen 325 MG Tablet 2 tablet as needed Orally every 4 hrs Taking ZyrTEC Allergy 10 MG Tablet 1 tablet as needed Orally Once a day Taking traZODone HCl 100 MG Tablet 1 tablet at bedtime Orally Once a day Taking Ticagrelor 90 MG Tablet 1 tablet Orally Twice a day Taking Rosuvastatin Calcium 40 MG Tablet 1 tablet Orally Once a day Taking Potassium Chloride ER 20 MEQ Tablet Extended Release 1 tablet with food Orally Once a day Taking Ondansetron HCl 4 MG Tablet 1 tablet as needed Orally every 6 hours Taking Milk of Magnesia 7.75 % Suspension 30 mL as needed Orally Once a day Taking Metoprolol Succinate ER 25 MG Tablet Extended Release 24 Hour 0.5 tablet Orally Once a day Taking metFORMIN HCl 500 MG Tablet 2 tablets with a meal Orally in the morning. Taking Magnesium 400 MG Capsule 1 tablet Orally twice daily Taking Ativan 0.5 MG Tablet 1 tablet Orally 3 times a day * Allergies: N o Known Drug Allergy Objective: * Vitals: B P: 127/52 mm Hg, HR: 79 /min, RR: 18 /min, Temp: 98 F, Wt: 234.9 lbs, Wt-k.55 kg. * Examination: G eneral Examination: General appearance: c haperone present in room, alert, well-nourished and in no acute distress, elderly. Skin: S kin warm and dry erythematous, patchy raised lesions noted to left axilla region and bilateral gorin. Pt is incontinent. Heart: r egular rate and rhythm without murmurs, gallops, clicks or rubs. Lungs: c lear to auscultation bilaterally, with good air movement and no rales, rhonchi or wheezes. Abdomen: s oft with good bowel sounds, nontender, and no masses or hepatosplenomegaly. Assessment: * Assessment: 1. D ermatophytosis, unspecified - B35.9 (Primary) Plan: * Treatment: 2. O thers Notes: REVIEWED HIPAA RIGHTS PRIVACY PRACTICES WITH PT/FAMILY/CAREGIVER COPY OF HIPAA RIGHTS PRIVACY PRACTICES GIVEN TO PT/FAMLY/CAREGIVER * Follow Up: p rn * Sign off status: Completed true * Provider: RACHEL Capone Date: 11/09/2024 Generated for Buzz erwin/Ashleigh/Dean on: 11/10/2024 02:27 PM CDT
--- OUTSIDE RECORDS SUMMARY | 2024-11-09 04:57 | XMS_ITS ---
Author Organization [facility] Address [address] [place] [phone] Care Team Providers Care Director Trial Name Role Phone STEVE BRYAN Primary Care Provider [phone] Allergies Allergen (clinical drug ingredient) Drug/Non Drug Allergy documented on EMR Reaction Allergy Type Onset Date Status No Known Drug Allergy Unknown Drug Allergy Active REASON FOR VISIT chart prep Medications Medication SIG (Take, Route, Frequency, Duration) Notes Start Date End Date Status Ipratropium-Albuterol 0.5-2.5 (3) MG/3ML Solution 3 mL as needed Inhalation every 4 hrs Active Losartan Potassium 25 MG Tablet 0.5 tablet Orally Once a day Active Ativan 0.5 MG Tablet 1 tablet Orally 3 t imes a day 11/05/2024 Active Jardiance 25 MG Tablet 1 tablet Orally O nce a day Active Lantus SoloStar 100 UNIT/ML Solution Pen-injector 15 units Subcutaneous 11/09/2024 Active Metoprolol Succinate ER 25 MG Tablet Extended Release 24 Hour 0.5 tablet Orally Once a day Active Milk of Magnesia 7.75 % Suspension 30 mL as needed Orally Once a day Active Ondansetron HCl 4 MG Tablet 1 tablet as needed Orally every 6 hours Active Magnesium 400 MG Capsule 1 tablet Orally twice daily Active metFORMIN HCl 500 MG Tablet 2 tablets wi th a meal Orally in the morning. Active Potassium Chloride ER 20 MEQ Tablet Extended Release 1 tablet with food Orally Once a day Active Rosuvastatin Calcium 40 MG Tablet 1 tablet Orally Once a day Active Ticagrelor 90 MG Tablet 1 tablet Orally Twice a day Active traZODone HCl 100 MG Tablet 1 tablet at bedtime Orally Once a day Active ZyrTEC Allergy 10 MG Tablet 1 tablet as needed Orally Once a day Active Dulcolax 10 MG Suppository 1 suppository as needed Rectal Once a day Active Docusate Sodium 100 MG Capsule 1 capsule as needed Orally Once a day Active Acetaminophen 325 MG Tablet 2 tablet as needed Orally every 4 hrs Active Aspirin Adult Low Dose 81 MG Tablet Delayed Release 1 tablet Orally Once a day Active Cranberry 450 MG Capsule 1 tablet Orally twice daily Active Escitalopram Oxalate 20 MG Tablet 1 tablet Orally Once a day Active Fleet Enema - Enema Insert 1 application rectally every 24 hours as neededfor If no Bowel Movement for >3 days Rectal every 3 days. Active guaiFENesin 400 MG Tablet 1 tablet as ne eded Orally every 12 hours Active Ibandronate Sodium 150 MG Tablet 1 tablet 60 minutes before the first food, beverage or medicine of the day with plain water Orally Active Imodium A-D 2 MG Tablet 2 tablet as need ed Orally every 12 hours Active Social History Tobacco Use: Social History Observation Description Date Details (start date - stop date) Former Smoker NA - NA Social History Tobacco Use: Social Info Question Answer Notes Tobacco Control (Standard) Tobacco use: Former smoker Encounters Encounter Location Date Provider Diagnosis [address] [address] 11/09/2024 BRYAN WILSON Plan Of Treatment Next Appt Details Provider Name:Bonnie Moreland , 11/16/2024 07:15:00 AM, [address] [place] [address], [id number], Progress Notes * Nayeli CURRY MDOB:06/1945 (79 yo F)Acc No.[id number]:11/09/2024 Patient: Nayeli CHANDLER :1945 A ge:79 Y S ex:Female Address:[address] [place] [address], [id number] Subjective: * Chief Complaints: * C nuñez prep * Medical History: Personal history of (healed) traumatic fracture Acquired absence of right leg above knee Mixed hyperlipidemia Depression, unspecified Anxiety disorder, unspecified Essential (primary) hypertension Unspecified combined systolic (congestive) and diastolic (congestive) heart failure Peripheral vascular disease Primary osteoarthritis of right shoulder Primary osteoarthritis, left shoulder Chronic kidney disease, stage 3a Medical History Verified * Surgical History: appendectomy cardiac catherization hysterectomy percutaneous transluminal coronary angioplasty Surgical History verified. * Family History: B rother: diagnosed with Heart Disease. F amily History Verified.. * Social History: T obacco Use: T obacco Control (Standard) T obacco use: F ormer smoker. Social History Verified. * Medications: T akingLantus SoloStar 100 UNIT/ML Solution Pen-injector 15 units Subcutaneous Jardiance 25 MG Tablet 1 tablet Orally [...] tablet Orally 3 times a day Taking Lantus SoloStar 100 UNIT/ML Solution Pen-injector 15 units Subcutaneous Taking Jardiance 25 MG Tablet 1 tablet [...] day * Allergies: N o Known Drug AllergyyesAllergies Verified. * true * Date: Generated for Buzz erwin/Ashleigh/Dean on: 0 11/10/2024 02:28 PM CDT
--- NOTE | ~2024-11-10 | MR_ITS ---
EXAMINATION: MR abdomen wo/w con DATE: 11/10/2024 15:46 INDICATION: Left adrenal nodule TECHNIQUE: Magnetic resonance imaging (MRI) of the abdomen was performed without and with 19 mL Multihance intravenous contrast. Sequences included coronal and axial T2-weighted SS-FSE, axial FS 2D-FIESTA, coronal and axial dual-echo T1- weighted FSPGR, axial T1-weighted LAVA, and axial STIR FSE. Postcontrast axial T1-weighted LAVA images were obtained in a time course. Postcontrast coronal T1-weighted LAVA images were obtained. COMPARISON: CT dated 09/17/2024 FINDINGS: Heart size is normal. No pericardial or pleural effusion. Liver, gallbladder and spleen are normal. There are couple tiny T2 hyperintense nonenhancing cysts in the left kidney. Orthotopic position of the right kidney which is located in the right hemipelvis. 1.6 x 0.7 cm macroscopic fat attenuation right adrenal myelolipoma. 2.0 x 1.1 cm. There appears be signal loss on the post phase imaging consistent with an adenoma. Infrarenal abdominal aortic aneurysm measuring approximately 5.0 cm. Prominent diverticulosis along the visualized portions of the colon. No dilated bowel to suggest obstruction. No pathologically enlarged abdominal or upper pelvic lymphadenopathy. Chronic T10 compression fracture. Severe lumbar spondylosis. IMPRESSION: 1. 1.6 x 0.7 cm macroscopic fat attenuation right adrenal myelolipoma. The 2.0 x 1.1 cm left adrenal nodule appears to demonstrate signal dropout on the opposed phase imaging favoring an adenoma although evaluation is somewhat limited by motion artifact on all 3 pairs of the in and opposed phase imaging. If prior outside imaging is unavailable to assess for long-term stability would consider 12 month follow-up pre and postcontrast adrenal protocol CT. 2. 5.0 cm infrarenal abdominal aortic aneurysm. 3. Diverticulosis. Reviewed, dictated and finalized at location A. IMPRESSION: 1. 1.6 x 0.7 cm macroscopic fat attenuation right adrenal myelolipoma. The 2.0 x 1.1 cm left adrenal nodule appears to demonstrate signal dropout on the oppos ed phase imaging favoring an adenoma although evaluation is somewhat limited by motion artifact on all 3 pairs of the in and opposed phase imaging. If prior o utside imaging is unavailable to assess for long-term stability would consider 12 month follow-up pre and postcontrast adrenal protocol CT. 2. 5.0 cm infrarenal abdominal aortic aneurysm. 3. Diverticulosis.
--- OUTSIDE RECORDS SUMMARY | 2024-11-10 14:27 | XMS_ITS | Clinical Summary ---
Author Organization [facility] ilsc Address [address] [place] [address] Care Team Providers Care Career Transition Specialist Name Role Phone Rony Whitney MD Primary Care Provider [phone] Allergies No known active allergies Medications escitalopram [...] here in 4 months. Mixed hyperlipidemia 07/05/2023 Assessment & Plan (09/24/2024 1:23 PM CDT): Stable continue Crestor Moderate aortic regurgitation 07/05/2023 CAD (coronary artery disease), apache coronary a rtery 06/05/2023 Type 2 diabetes mellitus wit h diabetic peripheral angiopathy without gangrene, without long-term current use of insulin 05/16/2023 Assessment & Plan (05/16/2023 10:37 AM FAMILY ASSESSMENT WORKER): Impression: Chronic with good glucose control. Plan: Continue glipizide and metformin. Primary hypertension 05/16/2023 Assessment & Plan (09/24/2024 1:23 PM CDT): Stable continue metoprolol Assessment & Plan (05/16/2023 10:38 AM FAMILY ASSESSMENT WORKER): Impression: Chronic and stable. Plan: Continue metoprolol Hx of AKA (above knee amputation), right 023 Assessment & Plan (05/16/2023 10:37 AM FAMILY ASSESSMENT WORKER): Impression: Right etjgb-qzk-ypxo amputation site is healed. Plan: Continue recommendations as per Nick for prosthesis. -patient to follow-up in 3 months for re-evaluation. Assessment & Plan (03/18/2023 9:04 AM FAMILY ASSESSMENT WORKER): Impression: Patient is status post right gbhgs-shh-hirk amputation. Surgical dehiscence occurred during patient's last [...] prosthesis evaluation and fitting for a right nxgqj-fms-ciam prothesis. Patient has no complaints or concerns at this time. I have examined the patient and recommend a right qditu-eeg-gcox prosthetic. The patient was a level K3 ambulator prior to his amputation. The patient is capable and has expressed a desire to live independently and do normal general dentist and activities of daily living. Patient is [...] prosthetic evaluation. -recommend compression therapy to right zkpab-uun-qcer amputation site for edema control. -patient to follow-up in 3 months for re-evaluation. Assessment & Plan (02/11/2023 11:06 AM FAMILY ASSESSMENT WORKER): Impression: Patient is status post right ulgse-zwf-gcrc amputation. Postsurgical edema is noted to residual right lower extremity. Surgical incision is well approximated, healing with janette intact. No concern for infection. Plan: [place] removed. Medical assistance brought it to my attention of continued bleeding the center of amputation site when janette were removed. Hematoma was expressed from open surgical wound. Patient was seen and evaluated with Dr. Wilburn. Applied steri strips to the incision of [...] Peripheral vascular disease 01/21/2023 Assessment & Plan (09/24/2024 1:23 PM CDT): Previous patient of Dr. Wilburn's, with a right above-knee amputation. Moderate occlusive disease of the left lower extremity. Continue risk factor modification with ASA statin therapy and good blood sugar control follow up in 1 year with repeat noninvasives testing. Assessment & Plan (05/16/2023 10:36 AM FAMILY ASSESSMENT WORKER): Impression: Patient denies any symptoms of claudication, [...] Encounters Date Type Department Care Team Description 09/22/2024 1:45 PM CDT Office Visit [facility] Vascular and Vein Surgery [address] [place] [address] [address] [place] [address] Zeallem Revees MD Peripheral vascular disease (Primary Dx); Mixed hyperlipidemia; Primary hypertension 09/22/2024 12:45 PM CDT - 09/22/2024 11:59 PM CDT Hospital Encounter [facility] Office Building 2 Vascular [address] [facility] [address] [place] [address] Atherosclerosis of apache artery of left lower extremity with intermittent claudication Discharge Disposition: Discharge to home or self care 09/22/2024 Orders Only [facility] Vascular and Vein Surgery [address] [facility] [address] [place] [address] Zelalem Reeves MD Atherosclerosis of apache artery of left lower extremity with intermittent claudication (Primary Dx) 09/16/2024 Telephone [facility] Lab [address] [place] [address] La Nena Forman, [facility] 09/16/2024 Orders Only [facility] Pulmonary Sarah [address] [facility] [address] [place] [address] Flo Carrasco MD ANITA (obstructive sleep apnea) (Primary Dx) 09/15/2024 12:52 PM CDT - 09/15/2024 11:59 PM CDT Hospital Encounter [facility] Sleep Lab [address] [place] [address] Snoring; Hypersomnia, unspecified Discharge Disposition: Discharge to home or self care from Last 3 Months Surgical History Surgery [...] Tobacco: Never Tobacco Cessation:Counseling Given: Not Answered [facility] Utilities Answer Date Recorded In the past 12 months has e electric, gas, oil, or water company threatened to shut off services in your home? No 01/08/2023 Social Connection and Isolation Panel Answer Date Recorded Frequency of Communication with Friends and Fami ly Not on file 01/08/2023 Frequency of Social Gatherings with Friends and Family Not on file 01/08/2023 Attends Mu-Is[employer] Services Not on file 01/08 Active Member [...] place to sleep or slept in a half-way (including now)? No 01/08/2023 Personal Safety Answer Date Recorded Have you ever been in or are you currently in a harmful physical or emotional relationship or is someone making you feel afraid or unsafe? Denies 06/05/2023 Comments No Sex and Gender Information Value Date Recorded Sex Assigned at Not on file Legal Sex Female 5:39 PM FAMILY ASSESSMENT WORKER Gender Identity Female 01/16/2023 6:07 AM FAMILY ASSESSMENT WORKER Sexual Orientation Not on file Obstetrics History Last Filed Vital Signs Vital Sign Reading Time Taken Comments Blood Pressure 125/61 09/22/2024 2:02 PM CDT Pulse 77 09/22/2024 2:02 PM CDT Temperature 37.1 C (98.7 F) 07/19/2024 9:49 AM CDT Respiratory Rate 18 07/19/2024 9:49 AM CDT Oxygen Saturation 98% 07/19/2024 9:49 AM CDT Inhaled Oxygen Concentration - - Weight 106.6 kg (235 lb) 09/22/2024 2:02 PM CDT Height 177.8 cm (5' 10) 09/22/2024 2:02 PM CDT Body Mass Index 33.72 09/22/2024 2:02 PM CDT Plan of Treatment Health Maintenance [...] Completed 01/13/2023 Medical Devices Implanted Type Area Governor Assembler Device Identifier Shelf Expiration Date Model / Serial / Lot Medtronic Card Vasc Surgery 2.50 X 22mm Amrik Erath Rx Coronary Stent [id number] - [id number] Implanted:Qty: 1 on 01/07/2023 by Jitendra Corral MD at [facility] Medtronic Card Vasc Surgery 08/15/2025 [id number] / / [id number] Medtronic Card Vasc Surgery 2.75 X 18mm Cantil Erath Rx Coronary Stent [id number] - [id number] Implanted:Qty: 1 on 06/05/2023 by Jitendra Corral MD at [facility] Medtronic Card Vasc Surgery 12/31/2025 [id number] / / [id number] Medtronic Card Vasc Surgery 3.5 X 15mm Cantil Erath Rx Coronary Stent [id number] - [id number] Implanted:Qty: 1 on 06/05/2023 by Jitendra Corral MD at [facility] Medtronic Card Vasc Surgery 04/30/2025 [id number] / / [id number] Procedures Procedure Name Priority Date/Time Associated Diagnosis Comments US ARTERIAL DOPPLER LOWER EXTREMITY BILATERAL Schedule Routine, Read Routine (OP Routine) 09/22/2024 2:16 PM CDT Atherosclerosis of apache artery of left lower extremity with intermittent claudication PORTABLE/HOME SLEEP STUDY Routine 09/15/2024 12:52 PM CDT Snoring Hypersomnia, unspecified EGFR Routine 06/30/2024 11:03 AM CDT 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 Primary hypertension Type 2 diabetes mellitus with diabetic peripheral angiopathy without gangrene, without long-term current use of insulin (HCC) BJORN (acute kidney injury) Hx of AKA (above knee amputation), right (HCC) HEMOGLOBIN A1C Routine 06/30/2024 11:03 AM CDT 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 Primary hypertension Type 2 diabetes mellitus with diabetic peripheral angiopathy without gangrene, without long-term current use of insulin (HCC) BJORN (acute kidney injury) Hx of AKA (above knee amputation), right (HCC) LIPID PANEL Routine 06/30/2024 11:03 AM CDT 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 Primary hypertension Type 2 diabetes mellitus with diabetic peripheral angiopathy without gangrene, without long-term current use of insulin (HCC) BJORN (acute kidney injury) Hx of AKA (above knee amputation), right (HCC) HEPATITIS PANEL, ACUTE Routine 01/13/2023 4:28 PM FAMILY ASSESSMENT WORKER from Last 3 Months or Most Recently Relevant to Health Maintenance Results * US Arterial Doppler Lower Extremity Bilateral (09/22/2024 2:16 PM CDT) Anatomical Region Laterality Modality Vascular Bilateral Ultrasound 09/22/2024 12:4 9 PM CDT Narrative 09/22/2024 5:09 PM CDT Lower Extremity Arterial Doppler Report Patient Name: VY CURRY A : 1945 Study Date: 09/22/2024 12:49:00 PM Gender: F Medical Transcriptionist: Jessica Will RDMS,RVT Ref Provider: OLIVIA WILBURN Quality: Adequate Order Provider: Zelalem Reeves PROCEDURES: Arterial Report: Bilateral lower extremity arterial Doppler exam at rest. INDICATIONS: I70.212 Atherosclerosis of apache arteries of extremities with intermittent claudication, left leg. HISTORY: DM, HTN, HLD, previous smoker. Right leg above knee amputation. COMPARISONS: The previous exam was completed on 08/18/2023. Previous arterial doppler LT PT .76, DP .87, 1st digit .29. MEASUREMENTS: Right Value Left Value Rt Brachial Pressure 168 mmHg Lt Brachial Pressure 164 mmHg Lt FEEDER SWITCHBOARD OPERATOR Pressure 83 mmHg Lt DPA Pressure 86 mmHg Lt 1st Digit Pressure 55 mmHg Lt PT VLAD Resting 0.49 Lt DP VLAD Resting 0.51 Lt Digit 1/Arm Index 0.33 FINDINGS: - CONCLUSIONS: 1. Ankle-brachial index of <0.5 is consistent with severe arterial disease in the left lower extremity. 2. There is evidence of left leg arterial insufficiency at the level of aorta- iliac, common femoral (inflow) arteries and infrapopliteal arteries. ATTESTATION: I have reviewed and interpreted the pertinent images and measurements of this study. I attest to the conclusions in the final report that is provided above. Electronically Signed By: George Reeves MD 09/22/2024 3:57:37 PM CDT Procedure Note George Reeves MD - 09/22/2024 Lower Extremity Arterial Doppler Report Patient Name: VY CURRY A : 1945 Study Date: 09/22/2024 12:49:00 PM Gender: F Medical Transcriptionist: Jessica Will RDMS,RVT Ref Provider: OLIVIA WILBURN Quality: Adequate Order Provider: Zelalem Reeves PROCEDURES: Arterial Report: Bilateral lower extremity arterial Doppler exam at rest. INDICATIONS: I70.212 Atherosclerosis of apache arteries of extremities withintermittent claudication, left leg. HISTORY: DM, HTN, HLD, previous smoker. Right leg above knee amputation. COMPARISONS: The previous exam was completed on 08/18/2023. Previous arterial doppler LT PT .76, DP .87, 1st digit .29. MEASUREMENTS: Right Value Left Value Rt Brachial Pressure 168 mmHg Lt Brachial Pressure 164 mmHg Lt FEEDER SWITCHBOARD OPERATOR Pressure 83 mmHg Lt DPA Pressure 86 mmHg Lt 1st Digit Pressure 55 mmHg Lt PT VLAD Resting 0.49 Lt DP VLAD Resting 0.51 Lt Digit 1/Arm Index 0.33 FINDINGS: - CONCLUSIONS: 1. Ankle-brachial index of <0.5 is consistent with severe arterial diseasein the left lower extremity. 2. There is evidence of left leg arterial insufficiency at the level ofaorta- iliac, common femoral (inflow) arteries and infrapopliteal arteries. ATTESTATION: I have reviewed and interpreted the pertinent images and measurements ofthis study. I attest to the conclusions in the final report that is provided above. Electronically Signed By: George Reeves MD 09/22/2024 3:57:37 PM CDT us Olivia Wilburn MD IMG US PROCEDURES Final Res ult * Portable/Home Sleep Study (09/15/2024 12:52 PM CDT) us Flo Carrasco MD SLEEP CENTER ORDERABLES F inal Result [facility] SLEEP MEDICINE [address] [place] [id number], [facility] * eGFR (06/30/2024 11:03 AM CDT) eGFR [...] was last reviewed 2021. Testing performed by: [address] [address] Blood 06/30/2024 11:0 3 AM CDT 06/30/2024 11:08 AM CDT Jitendra Corral MD LAB BLOOD ORDERABL ES Final Result DAMIAN [address] [facility] Department of Laboratories [place], [place] [id number] * (ABNORMAL) Hemoglobin A1c (06/30/2024 11:03 AM CDT) [facility] Hgb A1C 8.5(H) 4.0 - 5.6 % Comment:Testing performed by : [address] [address] Estimated Average Glucose 197 mg/dL DAMIAN MCKEON Comment: The ADA recommends reporting an estimated Average Glucose (eAG) with all Hemoglobin A1c results using the equation derived from a study of 507 normal and diabetic adults. Minority populations were underrepresented and children were not included. (Diabetes Care 31:0910-6442, 2008). The eAG is not equivalent to a fasting glucose. Testing performed by: [address] [address] Blood 06/30/2024 11:0 3 AM CDT 06/30/2024 11:09 AM CDT us Jitendra Corral MD LAB BLOOD ORDERABL ES Final Result DAMIAN [address] [facility] Department [place] [address] * (ABNORMAL) Lipid panel (06/30/2024 11:03 AM [...] last revised on 2017. Testing performed by: [address] [address] Triglycerides 152(H) <=149 mg/dL DAMIAN Comment: Interpretive [...] last revised on 2017. Testing performed by: [address] [address] HDL 50 >=40 mg/dL DAMIAN Comment: Interpretive [...] last revised on 2017. Testing performed by: [address] [address] LDL, calculated 71 <=129 mg/dL DAMIAN Comment: [...] last revised on 2023. Testing performed by: [address] [address] Non-HDL Cholesterol 97 mg/dL DAMIAN Comment: Interpretive [...] last revised on 2017. Testing performed by: [address] [address] Chol/HDL ratio 3 DAMIAN Comment:Testing performed by : [facility], [address] [place] [address]., [address] Blood 06/30/2024 11:0 3 AM CDT 06/30/2024 11:08 AM CDT Narrative DAMIAN - 06/30/2024 11:44 AM CDT Has the patient been fasting for 8 hours or more?->No Has the patient fasted?->No us Jitendra Corral MD LAB BLOOD ORDERABL ES Final Result Performing Organization Address [facility]/ZIP Co de Phone Number BRITT[address] Department [place] [address] * Hepatitis panel, acute Blood (01/13/2023 4:28 PM FAMILY ASSESSMENT WORKER) Hep A IgM Nonreactive Nonreactive DAMIAN Comment: Interpretive Data: If Hep A IgM Ab is reported as Equivocal, a new sample should be drawn in two weeks for testing. Current interpretive data was last revised on 19. Hep B core IgM Nonreactive Nonreactive [facility] Comment: Interpretive Data If HepB Core IgM Ab is reported as Equivocal, a new sample should be drawn in two weeks for testing. Current interpretive data was last revised on 19. Hep C Ab Nonreactive Nonreactive [facility] Comment: Interpretive Data Nonreactive: Antibodies to HCV [...] last revised on 2019. HepBsAg Nonreactive Nonreactive [facility] Blood 01/13/2023 4:28 PM FAMILY ASSESSMENT WORKER 01/13/2023 4:31 PM FAMILY ASSESSMENT WORKER us Amrit Mccollum MD LAB MICROBIOLOGY - GENERAL ORDERABLES Final Result Performing Organization Address City/[facility]/ZIP Co de Phone Number [place] [id number] [facility] [place] [address] from Last 3 Months or Most Recently Relevant to Health Maintenance Insurance MEDICARE [facility] MEDICARE [facility]IC[facility] Address: [address] [address] [place] [address] MEDICARE FORMERLY [facility] Advance Directives For more information, please contact: [phone] * Full Code (Latest Code Status on [...] 11:45 PM 01/10/2023 1:05 PM Care Teams Career Transition Specialist Relationship Specialty Start Date End Date Rony Whitney MD [address] [address] PCP - General Family Medicine 01/07/23
--- OUTSIDE RECORDS SUMMARY | 2024-11-10 14:27 | XMS_ITS | Patient Health Record ---
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 Name Role Phone BRYAN WILSON Primary Care Provider [phone] Kaiden Rose Unavailable [phone] Georgia Shearer Unavailable [phone] Jessica Bryson Unavailable [phone] Bonnie Moreland Unavailable [phone] Allergies Allergen (clinical drug ingredient) Drug/Non Drug Allergy documented on EMR Reaction Allergy Type Onset Date Status No Known Drug Allergy Unknown Drug Allergy Active Results Component Value Reference Range Notes CBC With Differential/Platel et Reviewed date:05/10/2024 12:02:33 PM Interpretation: Performing Lab: Notes/Report: Basic Metabolic Panel (8) Reviewed date:05/10/2024 12:02:57 PM Interpretation: Performing Lab: Notes/Report: Urine Culture and Sensitivit y Reviewed date:06/25/2024 08:34:05 AM Interpretation: Performing Lab: Notes/Report: Lipid Panel Reviewed date:05/12/2024 03:12:34 PM Interpretation: Performing Lab: Notes/Report: X ray : Abdomen, Kidneys, Ur eters, and Bladder (KUB) Reviewed date:06/23/2024 08:30:32 AM Interpretation: Performing Lab: Notes/Report: Amylase, Serum Reviewed date:07/02/2024 12:32:38 PM Interpretation: Performing Lab: Notes/Report: Lipase, Serum Reviewed date:07/02/2024 12:35:18 PM Interpretation: Performing Lab: Notes/Report: Clostridium difficile Cultur e Reviewed date:07/04/2024 06:24:41 PM Interpretation: Performing Lab: Notes/Report: Urine Culture and Sensitivit y Reviewed date:08/11/2024 10:54:15 AM Interpretation: Performing Lab: Notes/Report: Urine Culture and Sensitivit y Reviewed date:08/18/2024 09:47:23 AM Interpretation: Performing Lab: Notes/Report: Reason For Referral Reason Loose stools for a m onth Stomach Pain Nausea Diagnosis 1 Diarrhea, unspecifie d (R19.7) Diagnosis 2 Stomach pain (R10.9) Diagnosis 3 Nausea (R11.0) Referral Organization [facility] Referring Provider First Name BRYAN Referring Provider Last Name STEVE Referring Provider Speciality Internal M edicine Referred Organization [facility] er-SN Referred Address [address] [place] [id number], Referred Provider Specialty Gastroentero logy General Notes Leslye Sanchez 04/2024 02:53:40 PM CDT >Nicki at [facility] stated she is waiting on a call back from specialty office to schedule appt. Is going to resent referral., Leslye Sanchez 08/23/2024 11:06:13 AM CDT >Patient is scheduled this week for appointment Referral Priority Routine Medications Medication SIG (Take, Route, Frequency, Duration) Notes Start Date End Date Status Metoprolol Succinate ER 25 MG Tablet Extended Release 24 Hour 0.5 tablet Orally Once a day Active Milk of Magnesia 7.75 % Suspension 30 mL as needed Orally Once a day Active Ondansetron HCl 4 MG Tablet 1 tablet as needed Orally every 6 hours Active Potassium Chloride ER 20 MEQ Tablet Extended Release 1 tablet with food Orally Once a day Active Rosuvastatin Calcium 40 MG Tablet 1 tablet Orally Once a day Active Ticagrelor 90 MG Tablet 1 tablet Orally Twice a day Active Ibandronate Sodium 150 MG Tablet 1 tablet 60 minutes before the first food, beverage or medicine of the day with plain water Orally Active Imodium A-D 2 MG Tablet 2 tablet as need ed Orally every 12 hours Active Ipratropium-Albuterol 0.5-2.5 (3) MG/3ML Solution 3 mL as needed Inhalation every 4 hrs Active Losartan Potassium 25 MG Tablet 0.5 tablet Orally Once a day Active Ativan 0.5 MG Tablet 1 tablet Orally 3 t imes a day 11/05/2024 Active Jardiance 25 MG Tablet 1 tablet Orally O nce a day Active Magnesium 400 MG Capsule 1 tablet Orally twice daily Active Lantus SoloStar 100 UNIT/ML Solution Pen-injector 15 units Subcutaneous 11/09/2024 Active metFORMIN HCl 500 MG Tablet 2 tablets with a meal Orally in the morning. Active Diflucan 150 MG Tablet 1 tablet Orally d aily; Duration: 7 days 11/10/2024 11/17/2024 Active Dulcolax 10 MG Suppository 1 suppository as needed Rectal Once a day Active Docusate Sodium 100 MG Capsule 1 capsule as needed Orally Once a day Active Escitalopram Oxalate 20 MG Tablet 1 tablet Orally Once a day Active Fleet Enema - Enema Insert 1 application rectally every 24 hours as neededfor If no Bowel Movement for >3 days Rectal every 3 days. 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) Active confirmed Problem Essential hypertensi on (26359781) Essential (primary) hypertension (I10) Active confirmed Problem Acute combined systolic and diastolic heart failure (101417338375715) Unspecified combined systolic (congestive) and diastolic (congestive) heart failure (I50.40) Active confirmed Problem Localized, primary osteoarthritis of the shoulder region (911326637) Primary osteoarthritis, left shoulder (M19.012) Active confirmed Problem Amputated above knee (740225570) Acquired absence of right leg above knee (Z89.611) Active confirmed Problem hypercholesterolemia (disorder) (13218540) Hypercholesteremia (E78.00) Active confirmed Problem Chronic kidney disea se stage 3A (disorder) (586886801) Chronic kidney disease, stage 3a (N18.31) Active confirmed Problem COPD - Chronic obstructive pulmonary disease (49607674) Chronic obstructive pulmonary disease, unspecified COPD type (J44.9) Active confirmed Problem Anxiety (55603085) Anxiety (F41.9) Active confi rmed Problem Primary hypertension (69850527) Primary hypertension (I10) Active confirmed Problem Peripheral vascular disease (767621634) Peripheral vascular disease (I73.9) Active confirmed Problem Dementia (03185441) Dementia, unspecified dementia severity, unspecified dementia type, unspecified whether behavioral, psychotic, or mood disturbance or anxiety (F03.90) Active confirmed Problem Acute headache (finding) (003732428) Acute nonintractable headache, unspecified headache type (R51.9) Active confirmed Problem Acute coronary syndrome (840217508) Acute coronary syndrome (I24.9) Active confirmed Problem Aortic valve disorde r (6036069) Moderate aortic regurgitation (I35.1) Active confirmed Problem Mononeuropathy associated with type II diabetes mellitus (513687328) 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, without long-term current use of insulin (E11.41) Active confirmed Vital Signs Heart Rate 79 /min 11/09/2024 Temperature 98 degrees Fahrenheit 11/09/2024 Respiratory Rate 18 /min 11/09/2024 Oximetry 92 % 10/22/2024 Blood pressure diastolic 52 mm Hg 11/09/2024 Weight-kg 106.55 kg 11/09/2024 Blood pressure systolic 127 mm Hg 11/09/2024 Weight 234.9 lbs 11/09/2024 Encounters Encounter Location Date Provider Diagnosis [facility] [address] 12/19/2023 BRYAN WILSON 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, without long-term current use of insulin E11.41 and Weakness R53.[address] [address] 02/24/2024 Georgia Shearer Acute coronary syndrome I24.9 [...] without long-term current use of insulin E11.[address] [address] 03/18/2024 Georgia Shearer Peripheral vascular disease I73.9 [...] Acute nonintractable headache, unspecified headache type R51.[address] [address] 04/30/2024 BRYAN WILSON Chronic kidney disease, stage 3a N18.31 and Acute respiratory insufficiency R06.[address] [address] 05/19/2024 Jessica Braydon Peripheral vascular disease I73.9 ; 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, without long-term current use of insulin E11.41 ; Acute coronary syndrome I24.9 ; Primary hypertension I10 ; Mixed hyperlipidemia E78.2 ; Anxiety F41.9 ; Depression, unspecified depression type F32.A ; Acquired absence of right leg above knee Z89.611 and Chronic obstructive pulmonary disease, unspecified COPD type J44.[address] [address] 06/10/2024 BRYAN WILSON Chronic kidney disease, stage 3a N18.31 and 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, without long-term current use of insulin E11.41 [place] [address] 07/19/2024 Rose Richey Primary hypertension I10 ; Anxiety F41.9 ; Weakness R53.1 ; Chronic kidney disease, stage 3a N18.31 ; 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, without long-term current use of insulin E11.41 ; Mixed hyperlipidemia E78.2 and Depression, unspecified [place] [address] 08/12/2024 [place] [address] 09/02/2024 Jessica Bryson Peripheral vascular disease I73.9 [...] consciousness, initial encounter S06.0X0A and Hematoma T14.8XXA [place] [id number] 09/09/2024 Jessica Bryson Concussion without loss of consciousness, initial encounter S06.0X0A ; Hematoma T14.8XXA and UTI symptoms R39.9 [place] [address] 09/23/2024 [place] [address] 09/28/2024 Jessica Bryson Sleep apnea, unspecified G47.30 ; Peripheral vascular disease I73.9 ; 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, without long-term current use of insulin E11.41 ; Acute coronary syndrome I24.9 ; Primary hypertension I10 ; Mixed hyperlipidemia E78.2 ; Anxiety F41.9 ; Depression, unspecified depression type F32.A ; Acquired absence of right leg above knee Z89.611 ; Chronic obstructive pulmonary disease, unspecified COPD type J44.9 and Dementia, unspecified dementia severity, unspecified dementia type, unspecified whether behavioral, psychotic, or mood disturbance or anxiety F03.90 [facility] [address] [place] [address] 10/22/2024 BRYAN STEVE [facility] [address] [place] [address] 11/09/2024 Aften Aniceto Dermatophytosis, unspecified B35.9 [facility] [address] [id number] 01/19/2024 [facility] [address] [place] [address] 02/16/2024 [facility] [address] [place] [address] 04/13/2024 [facility]- [address] [place] [address] 05/13/2024 [facility] [address] [place] [address] 05/14/2024 [facility] [address] [place] [address] 05/18/2024 [facility] [address] [place] [address] 06/28/2024 [facility] [address] [place] [address] 07/18/2024 Rose Richey [facility] [address] [id number] 08/11/2024 [facility] [address] [place] [address] 08/11/2024 BRYAN WILSON [facility] [address] [place] [address] 08/26/2024 BRYAN WILSON [facility] [address] [place] [address] 09/01/2024 Jessica Braydon [facility] [address] [place] [address] 09/08/2024 [facility] [address] [place] [address] 09/27/2024 BRYAN WILSON [facility] [address] 10/21/2024 BRYAN WILSON [facility] [address] 10/22/2024 BRYAN WILSON [facility] [address] 11/05/2024 [facility] [address] 11/05/2024 [facility] [address] 11/09/2024 BRYAN WILSON Assessments Encounter Date Diagnosis (ICD Code) Assessment Notes Treatment Notes Treatment Clinical Notes Section Notes 12/19/2023 Weakness (ICD-10 - R53.1) 12/19/2023 Controlled [...] currently. 09/09/2024 Hematoma (ICD-10 - T14.8XXA) healed 09/28/2024 Sleep apnea, unspecified (ICD-10 - G47.30) Reinforce CPAP use at night. Ensure patient is getting help with placing CPAP on everynight and removing in the morning 09/28/2024 Peripheral vascular disease (ICD-10 - I73.9) Followed by vascular (). Plan to follow up in one year to repeat left lower extremity arterial doppler. 11/09/2024 Dermatophytosis, unspecified (ICD-10 - B35.9) Please start pt on diflucan 1 tab once daily Keep air clean and dry Leave area open to air as much as possible. 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 Continue current treatment plan and monitoring. 09/09/2024 UTI symptoms (ICD-10 - R39.9) Patient [...] week and to forward results to provider. 02/24/2024 Mixed hyperlipidemia (ICD-10 - E78.2) Last [...] 23, CREAT 0.89, K 4.2, NA 145 09/28/2024 Acute coronary syndrome (ICD-10 - I24.9) Denies chest pain or shortness of breath. Patient has a history of septic shock and NSTEMI. On ASA lifelong and ticagrelor given elevated ischemic risk. On metoprolol and statin. Chronic HF recovered. Last EF 50-55% on echo completed 03/2023. Stent placement completed 06/05/23 Followed by cardiology (Dr. Corral). 05/12/24- CHOL 107, TRIG-125, HDL 41, LDL 41 09/28/2024 Primary hypertension (ICD-10 - I10) Stable with [...] or symptoms. Continue current treatment plan. 02/24/2024 Anxiety (ICD-10 - F41.9) Denies symptoms. [...] regimen. Continue current treatment plan and monitoring. 09/28/2024 Mixed hyperlipidemia (ICD-10 - E78.2) On statin therapy. Denies adverse signs or symptoms. Continue current treatment plan. 09/02/2024 Depression, unspecified depression type (ICD-10 - F32.A) Denies at this time. Currently taking Lexapro. Continue to monitor closely. 09/28/2024 Anxiety (ICD-10 - F41.9) Denies symptoms. Pleasant and cooperative during visit. Continue current treatment plan and monitoring. 05/19/2024 Depression, unspecified depression type (ICD-10 - F32.A) Denies at this time. Currently taking Lexapro. Continue to monitor closely. 07/19/2024 Depression, unspecified depression type (ICD-10 - F32.A) Well managed on current medication regimen. Continue current treatment plan and monitoring. 03/18/2024 Anxiety (ICD-10 - F41.9) Denies symptoms. Pleasant and cooperative during visit. Continue current treatment plan and monitoring. 02/24/2024 Depression, unspecified depression type (ICD-10 - F32.A) Denies at this time. Currently taking Lexapro. Continue to monitor closely. 02/24/2024 Acquired absence of right leg above [...] to provide support and assistance with ADLs. 09/28/2024 Depression, unspecified depression type (ICD-10 - F32.A) Denies at this time. Currently taking Lexapro. Continue to monitor closely. 09/28/2024 Acquired absence of right leg above knee [...] or symptoms. Continue to monitor closely. 03/18/2024 Chronic obstructive pulmonary disease, unspecified COPD [...] No signs or symptoms of concussion currently. 09/28/2024 Chronic obstructive pulmonary disease, unspecified COPD type (ICD-10 - J44.9) Denies signs or symptoms. Continue to monitor closely. 09/28/2024 Dementia, unspecified dementia severity, unspecified dementia type, unspecified whether behavioral, psychotic, or mood disturbance or anxiety (ICD-10 - F03.90) stable with current management Continue to assist with ADL/IADL as needed Provide redirection as needed Report changes or concerns as needed 09/02/2024 Hematoma (ICD-10 - T14.8XXA) Continue to monitor healing well. Patient denies pain. 03/18/2024 Acute nonintractable headache, unspecified headache type (ICD-10 - R51.9) Patient c/o headache, fatigue, upset stomach and previous episodes of diarrhea. Denies SOB, CP, or cough. New order provided to obtain respiratory panel. 02/24/2024 Other Continue current treatment plan. Staff [...] OF HIPAA RIGHTS PRIVACY PRACTICES GIVEN TO PT/EDITH/CAREGIV ER May take patient to ER for [...] weeks unless necessary sooner. HIPAA POLICY REVIEWED 09/28/2024 Other Continue current treatment plan. Staff to continue to monitor and report any changes. Educated on plan of care. All questions/concer ns addressed. Follow-up in 2-4 weeks unless necessary sooner. Reviewed HIPAA Right to Privacy Practices withpatient/fami ly/caregiver. 11/09/2024 Other REVIEWED HIPAA RIGHTS PRIVACY PRACTICES WITH PT/FAMILY/CAREGI JUSTO COPY OF HIPAA RIGHTS PRIVACY PRACTICES GIVEN TO PT/FAMLY/CAREGIV ER Plan Of Treatment Pending Test Test Name Order Date Basic Metabolic Panel (8) 10/27/2024 Future Test Test Name Order Date Hemoglobin A1c 09/02/2024 Lipid Panel 09/02/2024 Basic Metabolic Panel (8) 09/02/2024 CBC 09/02/2024 Next Appt Details Provider Name:Bonnie Moreland , 11/16/2024 07:15:00 AM, [address] [place] [address], [id number], Insurance Providers Payer Name Payer Address Payer Phone Subscriber Number Group Number Insured Name Patient Relationship to Insured Coverage Start Date Coverage End Date [employer] of [place] [address] DARRYL VENTURA [id number] [facility] - patient is the insured [facility] [address] [place], [place] [phone] [id number] [facility] Self - patient is the insured Medical [...]
--- OUTSIDE RECORDS SUMMARY | 2024-11-10 14:28 | XMS_ITS | Clinical Summary ---
Author Organization [facility] Address [address] [place] [address] Care Team Providers Care Design Manager Name Role Phone Kenny Davis DO Primary Care Provider Allergies No known active allergies Medications traZODone [...] (8.6 mg total) by mouth daily. Active Encounters Date Type Department Care Team Description 11/03/2024 12:29 PM CDT - 11/03/2024 11:59 PM CDT Hospital Encounter [facility] [address] [facility] [address] Kenny Davis DO Discharge Disposition: Home or Self Care (Routine Discharge) 11/03/2024 Orders Only [facility] [address] [facility] [place] [address] Kenny Davis DO 10/27/2024 6:29 AM CDT - 10/27/2024 11:59 PM CDT Hospital Encounter [facility] [address] [facility] [place] [address] Kenny Davis, Discharge Disposition: Home or Self Care (Routine Discharge) 10/27/2024 Orders Only [facility] [address] [facility] [place] [address] Kenny Davis, 10/15/2024 12:11 PM CDT - 10/15/2024 11:59 PM CDT Hospital Encounter [facility] [address] [place] [id number] Kenny Davis, Discharge Disposition: Home or Self Care (Routine Discharge) 10/15/2024 Orders Only [address] [address] Kenny Davis, 09/15/2024 6:45 AM CDT - 09/15/2024 11:59 PM CDT Hospital Encounter [facility] [address] [facility] [place] [address] Kenny Davis, Discharge Disposition: Home or Self Care (Routine Discharge) 09/15/2024 Orders Only [facility] [address] [facility] [place] [address] Kenny Davis DO 09/05/2024 6:44 PM CDT - 09/06/2024 12:03 AM CDT Emergency [facility] Emergency Room [address] [place] [id number] Raul Carreno MD Altered Mental Status Discharge Disposition: Home or Self Care (Routine Discharge) 09/05/2024 Travel 09/01/2024 7:15 AM CDT - 09/01/2024 11:59 PM CDT Hospital Encounter [facility] [address] [facility] [place] [address] Kenny Davis, Discharge Disposition: Home or Self Care (Routine Discharge) 09/01/2024 Orders Only [facility] [address] [facility] [place] [address] Kenny Davis DO 08/30/2024 11:19 AM CDT - 08/30/2024 1:43 PM CDT Emergency [facility] Emergency Room [address] [place] [id number] Jaleel Edwards MD Fall Discharge Disposition: Home or Self Care (Routine Discharge) 08/30/2024 Travel 08/17/2024 1:38 PM CDT - 08/17/2024 11:59 PM CDT Hospital Encounter [facility] [address] [place] [phone] Kenny Davis DO Discharge Disposition: Home or Self Care (Routine Discharge) 08/17/2024 Orders Only [facility] [address] [place] [phone] Kenny Davis DO 08/10/2024 6:35 PM CDT - 08/10/2024 11:59 PM CDT Hospital Encounter [facility] [address] [place] [id number] Kenny Davis DO Discharge Disposition: Home or Self Care (Routine Discharge) 08/10/2024 Orders Only [facility] [address] [place] [phone] Kenny Davis DO from Last 3 Months Social History Tobacco Use Types Packs/Day Years Used Date Smoking Tobacco: Never Assessed Comments Unknown Sex and Gender Information Value Date Recorded Sex Assigned at Female 04/11/2024 6:03 PM GAS LINE REPAIRER Legal Sex Female 7:08 PM CDT Gender [...] Years (1 - 1-dose 75+ series) 2022 PHQ-2 (Physician [place]) 03/10/2024 COVID-19 Vaccine ( season) 2024 Hemoglobin A1C 02/03/2025 11/03/2024, 06/09, 02/25/2024, Additional history exists Lipid Panel 05/12/2025 05/12/2024, [...] Procedure Name Priority Date/Time Associated Diagnosis Comments BASIC METABOLIC PANEL Routine 11/03/2024 11:25 AM CDT Diabetes mellitus ([facility]) HEMOGLOBIN, GLYCOSYLATED Routine 11/03/2024 11:25 AM CDT Diabetes mellitus ([facility]) BASIC METABOLIC PANEL Routine 10/27/2024 5:25 AM CDT Diabetes mellitus ([facility]) URINE BACTERIA CULTURE Routine 10/15/2024 7:30 AM CDT UTI (urinary tract infection) URINALYSIS, AUTO, COMPLETE Routine 10/15/2024 7:30 AM CDT UTI (urinary tract infection) COMPREHENSIVE METABOLIC PANEL Routine 09/15/2024 5:50 AM [...] CDT Type 2 diabetes mellitus with mononeuropathy ([facility] HHS/HCC) Chronic obstructive asthma with exacerbation ([facility]/HCC) CALPROTECTIN FECAL Routine 09/01/2024 7: 30 AM CDT Type 2 diabetes mellitus with mononeuropathy ([facility]/HCC) Chronic obstructive asthma with exacerbation ([facility]HCC) ELASTASE, PANCREATIC (EL-1), FECAL, QUALITATIVE/SEMI-CYNDI TITATIVE Routine 09/01/2024 7:30 AM CDT Type 2 diabetes mellitus with mononeuropathy ([facility]HCC) Chronic obstructive asthma with exacerbation ([facility] H[facility]/HCC) CT CERV SPINE WO CON STAT [...] CDT Urinary tract infection, site not specified LIPID PANEL Routine 05/12/2024 6:45 AM GAS LINE REPAIRER Encounter for long-term (current) drug use Hyperlipidemia from Last 3 Months or Most Recently Relevant to Health Maintenance Results * (ABNORMAL) HEMOGLOBIN, GLYCOSYLATED (11/03/2024 11:25 AM CDT) HGB A1C 9.6(H) <5.7 % 11/03/2024 11:40 PM CDT [facility] Comment: ADA GUIDELINES 2010 5.7 TO 6.4% INCREASED RISK OF DIABETES > OR = 6.5% CONSISTENT WITH DIABETES ESTIMATED AVG GLUCOSE 229 mg/dL 11/03/2024 11:40 PM CDT [facility] 11/03/2024 11:2 5 AM CDT Kenny Davis DO LABORATORY Final Result [facility] [address] [place] [address], [place] [phone] * (ABNORMAL) BASIC METABOLIC PANEL (11/03/2024 11:25 AM CDT) Only the most recent of2 resultswithin the time period is included. [facility] GLUCOSE 279(H) 70 - 99 MG/DL 11/03/2024 12:57 PM CDT [facility] BUN 16 7 - 18 MG/DL 11/03/2024 12:57 PM CDT [facility] CREATININE S/P/B 0.92 0.50 - 1.20 MG/DL 11/03/2024 12:57 PM CDT [facility] SODIUM S/P/B 139 136 - 145 MMOL/L 11/03/2024 12:57 PM CDT [facility] POTASSIUM S/P/B 4.0 3.5 - 5.1 MMOL/L 11/03/2024 12:57 PM CDT [facility] CHLORIDE S/P/B 103 100 - 108 MMOL/L 11/03/2024 12:57 PM CDT [facility] CO2 29.1 21.0 - 32.0 MMOL/L 11/03/2024 12:57 PM CDT [facility] CALCIUM S/P/B 8.6 8.5 - 10.1 MG/DL 11/03/2024 12:57 PM CDT [facility] ANION GAP 6.9 5.0 - 15.0 MMOL/L 11/03/2024 12:57 PM CDT [facility] BUN CREATININE RATIO 17.4 6 - 26 11/03/2024 12:57 PM CDT [facility] GFR ESTIMATE 64(L) >90 ML/MIN/1.7 3 M2 11/03/2024 12:57 PM CDT [facility] Comment: NOTE: eGFR is not calculated for patients <18 years of age. This is an estimated GFR calculation using the new CKD EPI creatinine equation without race and so does not require a correction factor for race. This estimated GFR should not be used for calculating drug doses. 11/03/2024 11:2 5 AM CDT Kenny Davis DO LABORATORY Final Result [facility] [address] [place] [address] [place] [address], * (ABNORMAL) URINE BACTERIA CULTURE (10/15/2024 7:30 AM CDT) Only the most recent of4 resultswithin the time period is included. SPEC DESCRIPTION URINE CLEAN CATCH 10/15/2024 12:11 PM CDT [facility] SPECIAL REQUESTS NO SPECIAL REQUEST 10/15/2024 12:11 PM CDT [facility] CULTURE RESULT 10,000-49,0 00 COL/ML ESCHERICHIA COLI (A) 10/17/2024 8:28 AM CDT [facility] URINE SPECIMEN OBTAINED BY CLEAN CATCH PROCEDURE / Unknown 10/15/2024 7:30 AM CDT 10/15/2024 12:15 PM CDT Narrative Organism Antibiotic Method Susceptibility Escherichia coli AMPICILLIN RAFFY (VITEK) 4: Sensitive Escherichia coli AMPICILLIN/SULBACTAM RAFFY (VITEK) <=2: Sensitive Escherichia coli CEFTRIAXONE RAFFY (VITEK) <=1: Sensitive Escherichia coli CEFTAZIDIME RAFFY (VITEK) <=1: Sensitive Escherichia coli CEFAZOLIN RAFFY (VITEK) <=4: Sensitive Escherichia coli ESBL RAFFY (VITEK) NEG: Sensitive Escherichia coli NITROFURANTOIN RAFFY (VITEK) <=16: Sensitive Escherichia coli GENTAMICIN RAFFY (VITEK) <=1: Sensitive Escherichia coli LEVOFLOXACIN RAFFY (VITEK) >=8: Resistant Escherichia coli PIPERACILLIN/TAZOBACTAM RAFFY (VITEK) <=4: Sensitive Escherichia coli TRIMETH-SULFAMETH. RAFFY (VITEK) <=20: Sensitive us Kenny Davis DO MICROBIOLOGY - GENERAL ORDERABLE S Final Result [facility] [address] [place] [address], [place] [phone] [facility] [address] [place] [address], [place] [phone] * (ABNORMAL) URINALYSIS, AUTO, COMPLETE (10/15/2024 7:30 AM CDT) Only the most recent of3 resultswithin the time period is included. COLOR (U) YELLOW 10/15/2024 1:00 PM CDT [facility] TRANSPARENCY HAZY 10/15/2024 1:00 PM CDT [facility] SPECIFIC GRAVITY (U) 1.010 1.000 - 1.030 10/15/2024 1:00 PM CDT [facility] U PH 7.0 5.0 - 9.0 10/15/2024 1:00 PM CDT [facility] LEUKOCYTES (U) 1+(A) NEGATIVE 10/15/2024 1:00 PM CDT [facility] NITRITES NEGATIVE NEGATIVE 10/15/2024 1:00 PM CDT [facility] PROTEIN RANDOM (U) 1+(A) NEGATIVE 10/15/2024 1:00 PM CDT [facility] GLUCOSE (U) 3+(A) NEGATIVE 10/15/2024 1:00 PM CDT [facility] KETONES MG/DL (U) NEGATIVE NEGATIVE 10/15/2024 1:00 PM CDT [facility] BILIRUBIN (U) NEGATIVE NEGATIVE 10/15/2024 1:00 PM CDT [facility] BLOOD (U) 3+(A) NEGATIVE 10/15/2024 1:00 PM CDT [facility] WBC/HPF 5-10 0 - 5 /HPF 10/15/2024 1:00 PM CDT [facility] RBC/HPF 10-25 0 - 5 /HPF 10/15/2024 1:00 PM CDT [facility] EPI/HPF FEW /HPF 10/15/2024 1:00 PM CDT [facility] URINE SPECIMEN OBTAINED BY CLEAN CATCH PROCEDURE / Unknown 10/15/2024 7:30 AM CDT us Kenny Davis DO URINE ORDERABLES Final Result [facility] [address] [place] [address], [place] [phone] * (ABNORMAL) COMPREHENSIVE METABOLIC PANEL (09/15/2024 5:50 AM CDT) Only the most recent of3 resultswithin the time period is included. GLUCOSE 217(H) 70 - 99 MG/DL 09/15/2024 7:36 AM CDT [facility] BUN 13 7 - 18 MG/DL 09/15/2024 7:36 AM CDT [facility] CREATININE S/P/B 0.74 0.50 - 1.20 MG/DL 09/15/2024 7:36 AM CDT [facility] SODIUM S/P/B 138 136 - 145 MMOL/L 09/15/2024 7:36 AM CDT [facility] POTASSIUM S/P/B 4.3 3.5 - 5.1 MMOL/L 09/15/2024 7:36 AM CDT [facility] CHLORIDE S/P/B 102 100 - 108 MMOL/L 09/15/2024 7:36 AM CDT [facility] CO2 29.8 21.0 - 32.0 MMOL/L 09/15/2024 7:36 AM CDT [facility] CALCIUM S/P/B 8.2(L) 8.5 - 10.1 MG/DL 09/15/2024 7:36 AM CDT [facility] BILIRUBIN TOTAL S/P/B 0.3 0.2 - 1.2 MG/DL 09/15/2024 7:36 AM CDT [facility] Comment: THIS ASSAY IS NOT RECOMMENDED FOR PATIENTS UNDERGOING TREATMENT WITH ELTROMBOPAG DUE TO THE POTENTIAL FOR FALSELY ELEVATED RESULTS. TOTAL PROTEIN S/P/B 6.7 6.4 - 8.2 G/DL 09/15/2024 7:36 AM CDT [facility] ALBUMIN S/P/B 3.0(L) 3.4 - 5.0 G/DL 09/15/2024 7:36 AM CDT [facility] AST 35 15 - 37 U/L 09/15/2024 7:36 AM CDT [facility] ALT 56(H) 14 - 55 U/L 09/15/2024 7:36 AM CDT [facility] ALKALINE PHOSPHATASE S/P/B 111 50 - 136 U/L 09/15/2024 7:36 AM CDT [facility] ANION GAP 6.2 5.0 - 15.0 MMOL/L 09/15/2024 7:36 AM CDT [facility] BUN CREATININE RATIO 17.6 6 - 26 09/15/2024 7:36 AM CDT [facility] A/G RATIO 0.8(L) 1.0 - 2.5 RATIO 09/15/2024 7:36 AM CDT [facility] GFR ESTIMATE 83(L) >90 ML/MIN/1.7 3 M2 09/15/2024 7:36 AM CDT [facility] Comment: NOTE: eGFR is not calculated for patients <18 years of age. This is an estimated GFR calculation using the new CKD EPI creatinine equation without race and so does not require a correction factor for race. This estimated GFR should not be used for calculating drug doses. 09/15/2024 5:50 AM CDT us Kenny Davis DO LABORATORY Final Result [facility] [address] [facility] [place] [address], * (ABNORMAL) CBC W/DIFF AUTOMATED (09/15/2024 5:50 AM CDT) Only the most recent of2 resultswithin the time period is included. WBC 6.00 4.50 - 11.00 x10'3/uL 09/15/2024 7:27 AM CDT [facility] RBC 4.04 4.00 - 5.20 x10'6/uL 09/15/2024 7:27 AM CDT [facility] HGB 11.1(L) 12.0 - 16.0 G/DL 09/15/2024 7:27 AM CDT [facility] HCT 35.5(L) 38.0 - 48.0 % 09/15/2024 7:27 AM CDT [facility] MCV 87.9 80.0 - 100.0 FL 09/15/2024 7:27 AM CDT [facility] MCH 27.5 26.0 - 34.0 PG 09/15/2024 7:27 AM CDT [facility] MCHC 31.3 31.0 - 37.0 G/DL 09/15/2024 7:27 AM CDT [facility] RDW 14.7 11.6 - 14.8 % 09/15/2024 7:27 AM CDT [facility] PLT 228 130 - 400 x10'3/uL 09/15/2024 7:27 AM CDT [facility] MPV 10.9 7.0 - 12.0 FL 09/15/2024 7:27 AM CDT [facility] CBC COMMENT AUTOMATED RBC MORPHOLOGY AND PLATELET EVALUATION NORMAL 09/15/2024 7:27 AM CDT [facility] NEUTROPHILS % 61.0 40.0 - 74.0 % 09/15/2024 7:27 AM CDT [facility] LYMPHOCYTES % 24.0 14.0 - 46.0 % 09/15/2024 7:27 AM CDT [facility] MONOCYTES % 9.8 4.0 - 13.0 % 09/15/2024 7:27 AM CDT [facility] EOSINOPHILS 3.7 0.0 - 7.0 % 09/15/2024 7:27 AM CDT [facility] BASOPHILS 0.8 0.0 - 3.0 % 09/15/2024 7:27 AM CDT [facility] IMMATURE GRANS % 0.7(H) 0.0 - 0.43 % 09/15/2024 7:27 AM CDT [facility] NRBC % 0.0 % 09/15/2024 7:27 AM CDT [facility] ABS. NEUTROPHILS TOTAL 3.66 1.69 - 7.81 x10'3/uL 09/15/2024 7:27 AM CDT [facility] ABS. LYMPHOCYTES 1.44 0.21 - 5.42 x10'3/uL 09/15/2024 7:27 AM CDT [facility] ABS. MONOCYTES 0.59 0.04 - 1.37 x10'3/uL 09/15/2024 7:27 AM CDT [facility] ABS. EOSINOPHILS 0.22 0.00 - 0.68 x10'3/uL 09/15/2024 7:27 AM CDT [facility] ABS. BASOPHILS 0.05 0.00 - 0.08 x10'3/uL 09/15/2024 7:27 AM CDT [facility] ABS. IMMATURE GRANULOCYTES 0.04 0.00 - 0.06 x10'3/uL 09/15/2024 7:27 AM CDT [facility] ABS. NUCLEATED RBC'S 0.00 0.00 - 0.01 x10'3/uL 09/15/2024 7:27 AM CDT [facility] 09/15/2024 5:50 AM CDT us Kenny Davis DO LABORATORY Final Result Performing Organization Address [facility] de Phone Number [facility] [address] [facility] [address] [place] [address], [place] * AMMONIA (09/15/2024 5:50 AM CDT) AMMONIA <17 11.0 - 32.0 UMOL/L 09/15/2024 7:43 AM CDT [facility] 09/15/2024 5:50 AM CDT us Kenny Davis DO LABORATORY Final Result Performing Organization Address [facility] de Phone Number [facility] [address] [facility] [place] [address], [place] * (ABNORMAL) ACETAMINOPHEN (09/15/2024 5:50 AM CDT) ACETAMINOPHEN S/P/B 0(L) 10 - 30 MCG/ML 09/15/2024 7:36 AM CDT [facility] 09/15/2024 5:50 AM CDT us Kenny Davis DO LABORATORY Final Result Performing Organization Address [facility]/ZIP Co de Phone Number [facility] [address] [address], [place] * CT HEAD WO CON (09/05/2024 [...] 10:01 PM Narrative 09/05/2024 10:05 PM CDT [facility] [address] [place] [address] EXAMINATION: CT of the head EXAM DATE/TIME: [...] Procedure Note Jude Mariano MD - 09/05/2024 [facility] [address] [place] [id number] EXAMINATION: CT of the head EXAM DATE/TIME: [...] 9:56 PM Narrative 09/05/2024 9:57 PM CDT [place] [address] Examination: Chest x-ray 1 view Exam Date/Time: [...] Procedure Note Abdirashid Hastings MD - 09/05/2024 [place] [address] Examination: Chest x-ray 1 view Exam Date/Time: [...] Yu MD GENERAL IMAGING Final Result * CALPROTECTIN FECAL (09/01/2024 7:30 AM CDT) CALPROTECTIN (STOOL) <5 mcg/g 09/10/2024 1:06 AM CDT [facility] ALEXANDRA HOUSER Comment: Reference Range: <50 Normal 50-120 Borderline >120 Elevated Calprotectin in Crohn's disease and ulcerative colitis can be five to several thousand times above the reference population (50 mcg/g or less). Levels are usually 50 mcg/g or less in healthy patients and with irritable bowel syndrome. Repeat testing in 4-6 weeks is suggested for borderline values. Test performed by [facility] [address] [place] [address] Specialty Therapist: Jessica Pang MD,PHD,MARY JANE Test Reported by [facility] [employer], [address] [place] [address] George Shannon M.D., Ph.D., Director of Laboratories , CLIA [id number] STOOL SPECIMEN / Unknown 09/01/2024 7:30 AM CDT Kenny Davis DO BODY FLUIDS AND STOOLS ORDERABLE S Final Result [employer] , * (ABNORMAL) ELASTASE, PANCREATIC (EL-1), FECAL, QUALITATIVE/SEMI-QUANTITATIVE (09/01/2024 7:30 AM CDT) PANCREATIC ELASTASE-1 68(L) >200 mcg/g 09/09/2024 12:11 AM CDT [facility] SUTHERLANDStephanieJOHANNALISETH HOUSER Comment: E-1 mcg/g feces Interpretation <100 Severe exocrine pancreatic insufficiency 100-200 Mild to moderate exocrine pancreatic insufficiency >200 Normal Test performed by [facility] [address] [place], [place] [id number] Specialty Therapist: Jessica Pang MD,PHD,MARY JANE Test Reported by [facility] [employer], [address] [place] [address] George Shannon M.D., Ph.D., Director of Laboratories , CLIA [id number] STOOL SPECIMEN / Unknown 09/01/2024 7:30 AM CDT us Kenny Davis DO BODY FLUIDS AND STOOLS ORDERABLE S Final Result Performing Organization Address [facility]/ZIP Co de Phone Number [facility] [address] [place], [place] , [place] [phone] * HELICOBACTER PYLORI, STOOL, EIA (09/01/2024 7:30 AM CDT) H. PYLORI AG (STOOL) Not Detected Not Detected 09/03/2024 6:14 PM CDT [facility] SUTHERLANDROMY TOPETE Comment: Antimicrobials, proton pump inhibitors, and bismuth preparations inhibit H. pylori and ingestion up to two weeks prior to testing may cause false negative results. If clinically indicated the test should be repeated on a new specimen obtained two weeks after discontinuing treatment. Test Performed by [facility], [employer] [facility], [address] [place], [place] George Shannon M.D., Ph.D., Director of Laboratories , [facility] [id number] STOOL SPECIMEN / Unknown 09/01/2024 7:30 AM CDT us Kenny Davis DO MICROBIOLOGY - GENERAL ORDERABLE S Final Result Performing Organization Address [facility] Co de Phone Number [facility] [address] [place], [place] , [place] [phone] * CT CERV SPINE WO CON (08/30/2024 [...] 12:36 PM Narrative 08/30/2024 12:42 PM CDT [facility] [address] [place] [address] EXAMINATION: CT of the head and CT [...] Procedure Note Garfield Casarez MD - 08/30/2024 [facility] [address] [place] [address] EXAMINATION: CT of the head and CT [...] COLOR (U) STRAW 08/10/2024 7:11 PM CDT [facility] TRANSPARENCY CLEAR 08/10/2024 7:11 PM CDT [facility] SPECIFIC GRAVITY (U) <1.005 1.000 - 1.030 08/10/2024 7:11 PM CDT [facility] U PH 6.5 5.0 - 9.0 08/10/2024 7:11 PM CDT [facility] LEUKOCYTES (U) 1+(A) NEGATIVE 08/10/2024 7:11 PM CDT [facility] NITRITES NEGATIVE NEGATIVE 08/10/2024 7:11 PM CDT [facility] PROTEIN RANDOM (U) NEGATIVE NEGATIVE 08/10/2024 7:11 PM CDT [facility] GLUCOSE (U) 1+(A) NEGATIVE 08/10/2024 7:11 PM CDT [facility] KETONES MG/DL (U) NEGATIVE NEGATIVE 08/10/2024 7:11 PM CDT [facility] BILIRUBIN (U) NEGATIVE NEGATIVE 08/10/2024 7:11 PM CDT [facility] BLOOD (U) NEGATIVE NEGATIVE 08/10/2024 7:11 PM CDT [facility] URINE [place] 08/10/2024 7:11 PM CDT [facility] Comment: SMALL BUDDING YEAST FEW YEAST WITH PSEUDOHYPHAE URINE SPECIMEN / Unknown 08/10/2024 3:30 PM CDT us Kenny Davis DO URINE ORDERABLES Final Result [facility] [id number] [place] [address], [place] [phone] * URINALYSIS MICRO ONLY (08/10/2024 3:30 PM CDT) WBC/HPF 0-5 0 - 5 /HPF 08/10/2024 7:11 PM CDT [facility] RBC/HPF NONE SEEN 0 - 5 /HPF 08/10/2024 7:11 PM CDT [facility] EPI/HPF FEW /HPF 08/10/2024 7:11 PM CDT [facility] 08/10/2024 3:30 PM CDT us Kenny Davis DO URINE ORDERABLES Final Result [facility] [address] [place] [address], * LIPID PANEL (05/12/2024 6:45 AM GAS LINE REPAIRER) CHOLESTEROL 107 <200 MG/DL 05/12/2024 2:28 PM GAS LINE REPAIRER [facility] TRIGLYCERIDES 125 <150 MG/DL 05/12/2024 2:28 PM GAS LINE REPAIRER [facility] HDL 41 >40.0 MG/DL 05/12/2024 2:28 PM [facility] LDL (CALCULATED) 41 <100 MG/DL 05/13/19 2:28 PM [facility] NON HDL CHOLESTEROL 66 <130 MG/DL 05/12 2:28 PM [facility] CHOL/HDL RATIO 2.6 0.0 - 4.5 05/12/2024 2:28 PM [facility] VLDL CALCULATION 25 5 - 55 MG/DL 05/12/2024 2:28 PM [facility] LIPID INTERPRETATION 05/12/2024 2:28 PM [facility] Comment: [facility] CONCENSUS REPORT RECOMMENDATIONS: ADULT CHILD LOW RISK: CHOLESTEROL <200 <170 TRIGLYCERIDE <150 --- HDL >=60 --- LDL <100 <110 BORDERLINE: CHOLESTEROL 200-239 170-199 TRIGLYCERIDE 150-199 --- HDL 40-59 --- LDL 100-159 110-129 HIGH RISK: CHOLESTEROL >=240 >=200 TRIGLYCERIDE >=200 --- HDL <40 --- LDL >=160 >=130 05/12/2024 6:45 AM GAS LINE REPAIRER Kenny Davis DO LABORATORY Final Result [facility] [address] [facility] [place] [address], from Last 3 Months or Most Recently Relevant to Health Maintenance Additional Health Concerns Infection Onset Date Last Indicated 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
== END 2024-11-10 13:10 | disposition home or self-care (01) ==
PROVIDERS: PCP Internal Medicine; Visit Provider Nurse Practitioner Family
DX: E27.9 Disorder of adrenal gland, unspecified (principal)
CPT/HCPCS: 74183; A9577